=== PATIENT | female | born 1945 | race Caucasian/White ===

== ENCOUNTER → 2017-12-08 10:14 | Outpatient (CLI) | payer MEDICARE, OTHER, SELFPAY ==
--- NOTE | 2017-12-08 10:17 | HPBI_ITS ---
MAMMOGRAPHY - BILATERAL SCREENING REASON FOR EXAM: Female, 72 years old. Routine annual screening examination. PERTINENT HISTORY: Non-contributory. TECHNIQUE: Digital bilateral breast angelica (3D mammographic acquisition) in the CC and MLO projections. 2-D mediolateral oblique (MLO) and craniocaudad (CC) views of both breasts were obtained. CAD: Full Field Digital Mammography with Computer Added Detection was performed. COMPARISON: Comparison is made with prior examination dated December 04, 2016 and November 28, 2015. FINDINGS: Breast Composition: There are scattered areas of fibroglandular density. There are no dominant masses or suspicious calcifications. No other significant abnormalities are identified. There has been no significant change since the prior study. HPBI/SCREENING MAMM (CAD), BILAT IMPRESSION: Stable bilateral screening mammogram. Yearly follow-up mammogram recommended. (A) ASSESSMENT CATEGORY: BIRADS Category 1: Negative. A letter regarding these results will be sent to the patient by the facility within 30 days. Approximately 10% of breast cancers are not detected by mammography. A normal mammogram should not delay biopsy of a clinically suspicious abnormality. [id number] Electronically Signed: Maurice Grullon MD at 13:19 EST Tel [phone], Service support ,
--- NOTE | 2017-12-08 10:22 | HPBD_ITS ---
STUDY: DUAL ENERGY X-RAY ABSORPTIOMETRY / DXA REASON FOR EXAM: Female, 72 years old. The patient is postmenopausal. Loss of height. TECHNIQUE: Bone Mineral Density (BMD) measurements of lumbar spine and bilateral hips were obtained. COMPARISON: Comparison is made with prior study dated November 28, 2015. FINDINGS: Lumbar Spine (L1-L4): g/cm2 (0.884) / T-score (-2.4) / Z-score (-0.6) Findings are suggestive of osteopenia with a moderate fracture risk. Left Femur Total: g/cm2 (0.777) / T-score (-1.8) / Z-score (-0.1) Left Femoral Neck: g/cm2 (0.807) / T-score (-1.7) / Z-score (0.2) Right Femur Total: g/cm2 (0.794) / T-score (-1.7) / Z-score (0.0) Right Femoral Neck: g/cm2 (0.800) / T-score (-1.7) / Z-score (0.2) The T-Scores on the most recent prior examination were: Lumbar Spine (L1-L4): There has been worsening of bone density since the previous examination. Left Femur Total: which represents a worsening of 4.8%. Right Femur Total: which represents a worsening of 1.1%. HPBD/Dexa Bone Density Study (HP) IMPRESSION: The patient is considered osteopenic as outlined below according to World Wilber Organization (WHO) criteria with a moderate fracture risk. There has been worsening of bone density since the previous examination. Reference Information: The T-score is the number of standard deviations above or below the standard which is normal for young adults at their peak bone mineral density. The World Health Organization (WHO) interprets the T-scores as follows: Above -1 Normal bone density Between -1 and -2.5 Osteopenia Equal to / or below -2.5 Osteoporosis As a practical clinical guideline, osteopenia may be graded as follows: Mild -1 through -1.5 Moderate -1.6 through -2.0 Severe -2.1 through -2.4 The Z-score is the number of standard deviations above or below age-matched controls. A Z-score of less than -1.5 would be considered abnormal. References: 1. NIH Osteoporosis and Related Bone Diseases http://www.osteo.org 2. International Society for Clinical Densitometry http://www.iscd.org 3. National Osteoporosis Foundation http://www.nof.org Electronically Signed: Maurice Grullon MD at 15:25 EST Tel [phone], Service support ,
== END ==
PROVIDERS: Family Provider Internal Medicine; PCP Internal Medicine; Visit Provider Internal Medicine
DX: Z12.31 Encounter for screening mammogram for malignant neoplasm of breast (principal); Z78.0 Asymptomatic menopausal state; M85.80 Other specified disorders of bone density and structure, unspecified site
CPT/HCPCS: 77063; 77067; 77080

== ENCOUNTER → 2018-04-22 17:46 | Outpatient (CLI) | payer MEDICARE, OTHER, SELFPAY ==
--- NOTE | 2018-04-22 18:08 | MRI_ITS ---
STUDY: MRI BRAIN WITH AND WITHOUT CONTRAST REASON FOR EXAM: Female, 73 years old. Left orbital mass TECHNIQUE: Standardized multiplanar fat and water weighted pulse sequences were obtained. 5 ml of Gadavist contrast material was administered intravenously for the contrast portion of the examination. COMPARISON: March 05, 2017 FINDINGS: Moderate atrophy and periventricular white matter ischemic changes without mass effect or restricted diffusion.. Chronic ischemic changes are noted within the oc Normal bilateral basal ganglia. Normal thalami. There is no extra-axial fluid accumulation. Normal flow voids within the major intracranial circulation suggesting patency by spin echo criteria. Normal venous enhancement. There is no enhancing intra-axial or extra-axial abnormality. Normal sella turcica, pituitary gland, infundibular stalk, optic chiasm and hypothalamus. Normal tectal plate and pineal gland. Normal midbrain, and medulla. Normal cerebellum. Normal basal cisterns. Normal bilateral temporal bones. Normal bilateral internal auditory canals. There are postsurgical changes of the right orbit. There is a small solid nodule in the left orbital apex measuring proximally 7.5 x 5.8 x 6.9 mm mm essentially unchanged in size since previous study. Minor mucosal thickening of the ethmoid air cells. Normal calvarium and skull base. Normal visualized soft tissue structures. Normal visualized upper cervical spine. No significant change since prior study MRI/Brain W/WO Contrast IMPRESSION: Moderate atrophy and periventricular white matter ischemic changes without evidence for acute infarct. Chronic ischemic changes within the oc Stable appearance to nodule in the left renal apex since previous exam Electronically Signed: Romeo Waggoner MD at 21:12 EDT , Service support ,
== END ==
PROVIDERS: Family Provider Internal Medicine; PCP Internal Medicine; Visit Provider Internal Medicine
DX: H05.89 Other disorders of orbit (principal)
CPT/HCPCS: 70553; A9585

== ENCOUNTER → 2019-01-03 15:23 | Outpatient (CLI) | payer MEDICARE, OTHER, SELFPAY ==
--- NOTE | 2019-01-03 15:28 | BI_ITS ---
MAMMOGRAPHY - BILATERAL SCREENING REASON FOR EXAM: Female, 73 years old. Routine annual screening examination. PERTINENT HISTORY: Non-contributory. TECHNIQUE: Digital bilateral breast angelica (3D mammographic acquisition) in the CC and MLO projections. 2-D mediolateral oblique (MLO) and craniocaudad (CC) views of both breasts were obtained. CAD: Full Field Digital Mammography with Computer Added Detection was performed. COMPARISON: Comparison is made with prior examination dated December 08, 2017 and December 04, 2016. FINDINGS: Breast Composition: There are scattered areas of fibroglandular density. There are no dominant masses or suspicious calcifications. No other significant abnormalities are identified. There has been no significant change since the prior study. BI/SCREENING MAMM (CAD), BILAT IMPRESSION: Stable bilateral screening mammogram. Yearly follow-up mammogram recommended. (A) ASSESSMENT CATEGORY: BIRADS Category 1: Negative. A letter regarding these results will be sent to the patient by the facility within 30 days. Approximately 10% of breast cancers are not detected by mammography. A normal mammogram should not delay biopsy of a clinically suspicious abnormality. [id number] Electronically Signed: Maurice Grullon, at 9:08 EDT , Service support ,
== END ==
PROVIDERS: Family Provider Internal Medicine; PCP Internal Medicine; Referring Provider Internal Medicine; Visit Provider Internal Medicine
DX: Z12.31 Encounter for screening mammogram for malignant neoplasm of breast (principal)
CPT/HCPCS: 77063; 77067

== ENCOUNTER → 2019-02-15 | Outpatient (CLI) | payer MEDICARE, OTHER, SELFPAY ==
--- NOTE | 2019-02-15 13:20 | RAD_ITS ---
STUDY: X-RAY - CERVICAL SPINE REASON FOR EXAM: Female, 73 years old. Neck pain TECHNIQUE: 5 view(s) of the cervical spine were obtained. COMPARISON: None FINDINGS: Prominent osteophytosis of the odontoid articulation with the anterior ring of C1. Odontoid and lateral masses intact and aligned. Cervical vertebral body height and alignment normal. Minimal disc narrowing at C5-C6 with mild uncovertebral joint hypertrophy. No apparent foraminal stenosis on oblique views. Mild multilevel facet arthropathy. Apical lungs clear, apical thoracic cage intact. Prevertebral soft tissues and airways normal. RAD/Cerv Spine 4 or 5 Views IMPRESSION: Mild cervical spondylosis. No acute fracture or traumatic subluxation. Electronically Signed: Jamal Ferraro MD at 14:10 EDT Tel , Service support ,
== END | disposition home or self-care (01) ==
LOC: HPRAD 13:18
PROVIDERS: Family Provider Internal Medicine; PCP Internal Medicine; Referring Provider Internal Medicine; Visit Provider Internal Medicine
DX: M54.2 Cervicalgia (principal); G89.29 Other chronic pain
CPT/HCPCS: 72050

== ENCOUNTER 2019-04-15 10:30 | Outpatient (RCR) | payer MEDICARE, OTHER, SELFPAY ==
--- NOTE | 2019-03-23 16:31 | HP.PTEVAL ---
Patient's Visit Information ALVIN CAROLINA is a 74 year old F referred to Physical Therapy by Melissa Yeung DO with a diagnosis of Neck pain. Date of Evaluation: 03/23/19 Physical Therapist: CORRINE Rob - Visit Plan Frequency: 2x /Week Duration: 3 Weeks Plan: 2X/ week for 3 weeks for 1-2 sessions of MT to the upper cervial, occiput region, levator region, scapular and postural exercises with HEP. May use other modalities as needed. - Subjective Findings: SHe reports that she has stiffness and discomfort and Dr wanted her to try PT and get an x-ray. She has had it for a long time and there are times that it is worse. If she does things to try and build up her arms or if she is pulling weeds it gets it. She had the x-ray and it showed...mild degeneration. She has no N&T and no pain in her arms. She sleeps with 1 normal size pillow. She feels that she has relatively full ROM. SHe feels that she needs to build up her arms. - Pain neck pain Pain Intensity (Out of 10): 0 - Objective Posture: Sit with upright posture. C-spine AROM: Rot B 100%, ext 75%, Flexion 100%, SB B 75%. UE AROM: Full AROM. UE MMT: Flexion B 4/5, abd B 4/5, IR/ER B 4/5. Bicep reflex: 2+/3 B. Palpation: tender along B Occiput region and levator scap region. Pt was using 10# weight at home to do bicep curls in small ROM and I feel she was using her neck extensors and mid trap region for stability to help with the exercise. Instructed pt in how to scapular retract and depression with exercises. - Goals Goal 1:: I HEP Goal Time Frame: 4-6 Weeks Goal 2:: Be able to complete a work out rountine without getting neck pain afterwards. Goal Time Frame: 4-6 Weeks Goal 3:: Decrease neck stiffness by 50% near the occiput and levator, mid trap region Goal Time Frame: 4-6 Weeks - Rehabilitation Potential Rehabilitation Potential: Good - Anticipated Interventions Patient/Client Instruction: Educate patient on: Condition For the Purpose of:: To decrease pain, To increase ROM, To improve muscle performance and motor function, To improve ability to perform ADL's, To increase tolerance to activity/condition/position, To improve performance and independence with ADL's, To improve health of tissue, To decrease soft tissue restriction, To increase flexibility/ROM Therapeutic Exercise to Include: Strength training, Postural training, Flexibilty training, Passive ROM, Active ROM, Scapular Strength/Stabilization For the Purpose of:: To decrease pain, To increase ROM, To improve nutrient delivery to tissue, To improve muscle performance and motor function, To improve ability to perform ADL's, To increase tolerance to activity/condition/position, To improve health of tissue, To decrease soft tissue restriction, To increase flexibility/ROM Manual Therapy Techniques to Include: Passive ROM, Soft tissue mobilization For the Purpose of:: To decrease pain, To improve health of tissue, To decrease soft tissue restriction, To increase flexibility/ROM Ultrasound (thermal/non thermal): Yes - if needed For the Purpose of:: To decrease pain, To increase ROM, To improve nutrient delivery to tissue Thank you for the opportunity to evaluate your patient. For Medicare and Medicare HMO plans, please review the plan of care and approve it. It will need to be FAXED BACK to us at [phone] for Medicare purposes. For Medicare only, by signing this I certify the plan of care. Please let me know if there are questions or concerns regarding this plan of care. Physician Signature: Date:
--- NOTE | 2019-04-15 11:07 | HP.PTDCSUM ---
HP - PT D/C Summary It has been my pleasure to treat ALVIN CAROLINA under orders from Melissa Yeung DO, for the diagnosis of Neck pain for a total of 7 visit(s). Discharge Date: 04/15/19 Please see the following information for a summary of their discharge status. - Subjective Subjective: She has no pain now. SHe has pain for where she points to the occiput at night ( not every night and probably depending on what she does that day) and she reports it doesn;t bother her unless it turns head and reports the pain is 6/10 - Pain neck pain Pain Intensity (Out of 10): 0 - Overall Improvement % Improvement: 90 - Objective Objective/Function: Pt sits with excellent posture. C-spine AROM: Rot B 100%, ext 75%, flexion 100%, SB B 75% - Goals Goal 1:: I HEP Goal Progress: Goal Met Goal 2:: Be able to complete a work out rountine without getting neck pain afterwards. Goal Progress: Goal Met Goal 3:: Decrease neck stiffness by 50% near the occiput and levator, mid trap region Goal Progress: Goal Met - Plan Plan: DC PT to HEP ( including chin tucks to stretch occiput area) and possible self pay massage monthy. And watch posture - D/C Information Discharge Comments: DC PT to HEP If there are questions or concerns regarding this patient's physical therapy, please feel free to call me at [phone]. Thank you for the referral of this patient. Sincerely, Ary Reardon, MPT
== END 2019-04-15 19:00 | disposition home or self-care (01) ==
LOC: PT 10:30
PROVIDERS: Family Provider Internal Medicine; PCP Internal Medicine; Visit Provider Internal Medicine
DX: M54.2 Cervicalgia (principal)
CPT/HCPCS: 97110; 97140; 97161; 97530

== ENCOUNTER → 2019-09-05 | Outpatient (CLI) | payer MEDICARE, OTHER, SELFPAY ==
--- NOTE | 2019-09-05 12:25 | MRI_ITS ---
STUDY: MRI BRAIN WITH AND WITHOUT CONTRAST REASON FOR EXAM: Female, 74 years old. Left eye lesion TECHNIQUE: Standardized multiplanar fat and water weighted pulse sequences were obtained. IV Dotarem 10 was administered for the contrast portion of the examination. COMPARISON: None. FINDINGS: Moderate atrophy and periventricular white matter ischemic changes without evidence for acute infarct. Chronic ischemic changes within the oc Normal bilateral basal ganglia. Normal thalami. There is no extra-axial fluid accumulation. Normal flow voids within the major intracranial circulation suggesting patency by spin echo criteria. Normal venous enhancement. There is no enhancing intra-axial or extra-axial abnormality. Normal sella turcica, pituitary gland, infundibular stalk, optic chiasm and hypothalamus. Normal tectal plate and pineal gland. Normal midbrain, and medulla. Normal cerebellum. Normal basal cisterns. Normal bilateral temporal bones. Normal bilateral internal auditory canals. Status post right optic lens implant. Small nonspecific bony lesion at the level of the left orbital apex measuring approximately 7.2 x 5.8 mm. Minor mucosal thickening of the left maxillary and ethmoid sinuses.. Normal calvarium and skull base. Normal visualized soft tissue structures. Normal visualized upper cervical spine. Findings are unchanged since prior exam MRI/Brain W/WO Contrast IMPRESSION: Moderate periventricular white matter ischemic changes without evidence for acute infarct. Chronic ischemic changes within the oc. Nonspecific bony lesion within the left orbital apex not significantly changed since prior exam Electronically Signed: Romeo Waggoner MD at 16:27 EST , Service support ,
== END | disposition home or self-care (01) ==
LOC: MRI 12:22
PROVIDERS: Family Provider Internal Medicine; PCP Internal Medicine; Referring Provider Internal Medicine; Visit Provider Internal Medicine
DX: R42 Dizziness and giddiness (principal)
CPT/HCPCS: 70553; A9575

== ENCOUNTER → 2020-01-05 | Outpatient (CLI) | payer MEDICARE, OTHER, SELFPAY ==
--- NOTE | 2020-01-05 14:31 | BI_ITS ---
MAMMOGRAPHY - BILATERAL SCREENING REASON FOR EXAM: Female, 74 years old. Routine annual screening examination. PERTINENT HISTORY: Non-contributory. TECHNIQUE: Digital bilateral breast consuelo (3D mammographic acquisition) in the CC and MLO projections. 2-D mediolateral oblique (MLO) and craniocaudad (CC) views of both breasts were obtained. CAD: Full Field Digital Mammography with Computer Added Detection was performed. COMPARISON: Comparison is made with prior examination of January 03, 2019 and December 08, 2017. FINDINGS: Breast Composition: There are scattered areas of fibroglandular density. There are no dominant masses or suspicious calcifications. No other significant abnormalities are identified. There has been no significant change since the prior study. BI/SCREEN MAMM (CAD) W/CONSUELO BILAT IMPRESSION: Stable bilateral screening mammogram. Yearly follow-up mammogram recommended. (A) ASSESSMENT CATEGORY: BIRADS Category 1: Negative. A letter regarding these results will be sent to the patient by the facility within 30 days. Approximately 10% of breast cancers are not detected by mammography. A normal mammogram should not delay biopsy of a clinically suspicious abnormality. [id number] Electronically Signed: Maurice Grullon, at 15:53 EDT , Service support ,
--- NOTE | 2020-01-05 14:34 | BD_ITS ---
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 COMPARISON: Comparison is made with prior study dated December 08, 2017. FINDINGS: Lumbar Spine (L1-L4): g/cm2 (0.910) / T-score (-2.1) / Z-score (-0.3) Findings are suggestive of osteopenia with a high fracture risk. Left Femur Total: g/cm2 (0.819) / T-score (-1.5) / Z-score (0.3) Left Femoral Neck: g/cm2 (0.869) / T-score (-1.2) / Z-score (0.8) Right Femur Total: g/cm2 (0.795) / T-score (-1.7) / Z-score (0.1) Right Femoral Neck: g/cm2 (0.801) / T-score (-1.7) / Z-score (0.3) The T-Scores on the most recent prior examination were: Lumbar Spine (L1-L4): There has been improvement of bone density since the previous examination. Left Femur Total: which represents an improvement of 5.4%. Right Femur Total: which represents an improvement of 0.1%. BD/Dexa Bone Density Study IMPRESSION: The patient is considered osteopenic as outlined below according to World Wilber Organization (WHO) criteria with a high fracture risk. There has been improvement of bone density since the previous examination. Reference Information: The T-score is the number of standard deviations above or below the standard which is normal for young adults at their peak bone mineral density. The World Health Organization (WHO) interprets the T-scores as follows: Above -1 Normal bone density Between -1 and -2.5 Osteopenia Equal to / or below -2.5 Osteoporosis As a practical clinical guideline, osteopenia may be graded as follows: Mild -1 through -1.5 Moderate -1.6 through -2.0 Severe -2.1 through -2.4 The Z-score is the number of standard deviations above or below age-matched controls. A Z-score of less than -1.5 would be considered abnormal. References: 1. NIH Osteoporosis and Related Bone Diseases http://www.osteo.org 2. International Society for Clinical Densitometry http://www.iscd.org 3. National Osteoporosis Foundation http://www.nof.org Electronically Signed: Maurice Grullon, at 8:34 EDT , Service support ,
== END | disposition home or self-care (01) ==
LOC: OPBD 14:29
PROVIDERS: Family Provider Internal Medicine; PCP Internal Medicine; Referring Provider Internal Medicine; Visit Provider Internal Medicine
DX: Z78.0 Asymptomatic menopausal state (principal); Z12.31 Encounter for screening mammogram for malignant neoplasm of breast
CPT/HCPCS: 77063; 77067; 77080

== ENCOUNTER → 2021-01-17 12:49 | Outpatient (CLI) | payer MEDICARE, OTHER, SELFPAY ==
--- NOTE | 2021-01-17 12:53 | BI_ITS ---
MAMMOGRAPHY - BILATERAL SCREENING REASON FOR EXAM: Female, 75 years old. Routine annual screening examination. PERTINENT HISTORY: Non-contributory. TECHNIQUE: Digital bilateral breast consuelo (3D mammographic acquisition) in the CC and MLO projections. 2-D mediolateral oblique (MLO) and craniocaudad (CC) views of both breasts were obtained. CAD: Full Field Digital Mammography with Computer Added Detection was performed. COMPARISON: Comparison is made with prior examination dated 01/05/2020 and 01/03/2019. FINDINGS: Breast Composition: There are scattered areas of fibroglandular density. There are no dominant masses or suspicious calcifications. No other significant abnormalities are identified. There has been no significant change since the prior study. BI/SCRN MAMM (CAD)W/CONSUELO BILAT IMPRESSION: Stable bilateral screening mammogram. Yearly follow-up mammogram recommended. (A) ASSESSMENT CATEGORY: BIRADS Category 1: Negative. A letter regarding these results will be sent to the patient by the facility within 30 days. Approximately 10% of breast cancers are not detected by mammography. A normal mammogram should not delay biopsy of a clinically suspicious abnormality. [id number] Electronically Signed: Maurice Grullon MD at 13:42 EDT , Service support ,
== END ==
PROVIDERS: PCP Internal Medicine; Referring Provider Internal Medicine; Visit Provider Internal Medicine
DX: Z12.31 Encounter for screening mammogram for malignant neoplasm of breast (principal)
CPT/HCPCS: 77063; 77067

== ENCOUNTER → 2021-05-22 14:54 | Outpatient (CLI) | payer MEDICARE, OTHER, SELFPAY ==
--- NOTE | 2021-05-22 15:06 | MRI_ITS ---
STUDY: MRI BRAIN WITH AND WITHOUT CONTRAST REASON FOR EXAM: Female, 76 years old. ABN MRI, MEMORY LOSS,BALANCE; PREV MRI 09/05/19, 04/22/18 TECHNIQUE: Standardized multiplanar fat and water weighted pulse sequences were obtained. 11ML IV DOTAREM was administered for the contrast portion of the examination. COMPARISON: 09/05/2019. FINDINGS: Mild atrophy and moderate periventricular white matter ischemic changes without mass effect or restricted diffusion.. 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 Chronic ischemic changes within the oc bilaterally Normal bilateral basal ganglia. Normal thalami. There is no extra-axial fluid accumulation. Normal flow voids within the major intracranial circulation suggesting patency by spin echo criteria. Normal venous enhancement. There is no enhancing intra-axial or extra-axial abnormality. Normal sella turcica, pituitary gland, infundibular stalk, optic chiasm and hypothalamus. Normal tectal plate and pineal gland. Normal midbrain, and medulla. Normal cerebellum. Normal basal cisterns. Normal bilateral temporal bones. Normal bilateral internal auditory canals. Postsurgical changes of the right orbit.. Unchanged appearance of small bony lesion in the left orbital apex. Normal visualized paranasal sinuses. Normal calvarium and skull base. Normal visualized soft tissue structures. Normal visualized upper cervical spine. Little significant change since prior exam MRI/Brain W/WO Contrast IMPRESSION: Atrophy and moderate periventricular white matter ischemic changes without evidence for acute infarct. 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 Electronically Signed: Romeo Waggoner MD at 16:46 EDT , Service support ,
== END ==
PROVIDERS: PCP Internal Medicine; Referring Provider Internal Medicine; Visit Provider Internal Medicine
DX: R93.0 Abnormal findings on diagnostic imaging of skull and head, not elsewhere classified (principal)
CPT/HCPCS: 70553; A9575

== ENCOUNTER 2021-06-25 05:37 | Emergency (ER) | payer MEDICARE, OTHER, SELFPAY ==
[2021-06-25 05:38] VITALS: BP 224/92; PULSE 72; RESP 18; TEMP 36.4; O2SAT 100; BMI 20.5
[2021-06-25 05:41] VITALS: BP 219/86
--- NOTE | 2021-06-25 06:16 | RAD_ITS ---
STUDY: X-RAY CHEST REASON FOR EXAM: Female, 76 years old. hypertensive urgency TECHNIQUE: Single AP portable view of the chest. COMPARISON: None. FINDINGS: The lungs are clear and expanded. There is no demonstrated pleural abnormality. There is borderline cardiomegaly. Normal mediastinum and alla. Normal visualized pulmonary arteries. There is atherosclerotic tortuosity of the aortic arch and descending thoracic aorta. Normal visualized thoracic spine. Normal visualized ribs, clavicles, and shoulders. There is no demonstrated abnormality of the visualized soft tissue structures of the upper abdomen. RAD/Chest 1 View (Portable) IMPRESSION: No demonstrated acute cardiopulmonary process. Electronically Signed: Alona Alfaro MD at 7:35 EDT Tel , Service support ,
--- NOTE | 2021-06-25 06:16 | CT_ITS ---
STUDY: CT BRAIN WITHOUT CONTRAST REASON FOR EXAM: Female, 76 years old. Headache RADIATION DOSAGE (If Supplied By Facility): CTDIvol = ( 44.99 ) mGy, DLP = ( 728.62 ) mGycm TECHNIQUE: Transaxial CT imaging of the brain was performed without administration of intravenous contrast material. Individualized dose optimization techniques were used for this CT. COMPARISON: MRI brain May 22, 2021 FINDINGS: Normal soft tissue structures. Normal calvarium. There is mild cerebral atrophy with widening of the extra-axial spaces and ventricular dilatation. There is expected dilatation of the left anterior horn. There is focal low attenuation within the left basal ganglia stable since prior study. There is stable calcification in the right-sided basal ganglia. There are small punctate calcifications of the basal ganglia which are seen in the aging brain as a normal variant. Normal brainstem. There is mild cerebellar atrophy. There is no intracranial hemorrhage. There are no findings of an acute ischemic infarction. Normal visualized paranasal sinuses. CT/Brain/Head without Contrast IMPRESSION: Atrophy. Stable Prior ischemic change left-sided basal ganglia. No visualized acute hemorrhage infarct or edema. Electronically Signed: Alona Alfaro MD at 7:17 EDT Tel , Service support ,
[2021-06-25 06:17] VITALS: BP 210/82
--- NOTE | 2021-06-25 06:17 | EKG12_ITS ---
Test Reason : Blood Pressure : / mmHG Vent. Rate : 066 BPM Atrial Rate : 066 BPM P-R Int : 186 ms QRS Dur : 106 ms QT Int : 458 ms P-R-T Axes : 071 033 072 degrees QTc Int : 480 ms Normal sinus rhythm Normal ECG Confirmed by KELSEA GUILLEN, TITA ([id number]), senior editor MARIBELL ELLIS ([id number]) on 06/26/2021 9:54:47 AM Referred By: TATIANA Confirmed By:TITA ENAMORADO MD
[2021-06-25 06:40] LABS: Absolute Neutrophil Count 1.9 X10^3/uL (2.0-7.7); Basophil# 0.01 X10^3/uL; Basophil% 0.3 % (0-1); Eosinophil# 0.07 X10^3/uL; Eosinophils% 1.8 % (0-5); Hematocrit 35.6 % (37-47); Lymphocyte % 33.5 % (19-41); Mean Corp Hgb Conc 33.7 g/dL (32-36); Mean Corpuscular Hgb 32.5 pg (27.0-32.0); Mean Corpuscular Volume 96.5 fL (81-99); Monocyte# 0.59 X10^3/uL; Monocyte% 15.2 % (0-10); NRBC Flagged by Analyzer 0 % (0-5); Neutrophil # 1.91 X10^3/uL (2.7-7.7); Neutrophil % 49.2 % (47-70); Platelet Count 177 K/mm3 (150-450); RBC Distribution Width CV 11.5 % (11.6-14.6); RBC Distribution Width SD 40.8 fl (35.1-43.9); Red Blood Count 3.69 M/mm3 (4.2-5.4); White Blood Count 3.9 K/mm3 (4.4-11.0)
[2021-06-25 07:00] LABS: ALB/GLOB Ratio 1.1 RATIO (0.9-2.4); AST(SGOT) 20 U/L (15-37); Alanine Aminotransfer ALT/SGPT 21 U/L (13-56); Albumin, Serum 4.2 g/dL (3.2-5.0); Alkaline Phosphatase 59 U/L (45-117); Anion Gap 8 (5-15); BUN 10 mg/dL (7-18); BUN/Creat Ratio 12.6 RATIO (10-20); Chloride 97 mmol/L (98-107); Creatinine, Serum 0.79 mg/dL (0.55-1.02); EST Glomerular Filtration Rate 75 mL/min (>60); Est Glom Filt Rate - Afr Amer 90 mL/min (>60); Estimated Creatinine Clearance 39.84 ml/min; Globulin 3.7 g/dL (2.2-4.2); Glucose 86 mg/dL (74-106); Potassium 3.5 mmol/L (3.5-5.1); Protein, Total 7.9 g/dL (6.4-8.2); Sodium Level 129 mmol/L (136-145); Troponin-I HS 7 pg/mL (3.0-54.0)
[2021-06-25] MEDS: hydrALAZINE 20 MG/ML Vial 10 MG IV (07:03)
--- NOTE | 2021-06-25 07:21 | EX.ED.DYSGE1 ---
HPI History of Present Illness Chief Complaint: Headache Informant: patient and spouse/S.O. Narrative Narrative: 76-year-old female states that she is scheduled to have a colonoscopy this morning. She states that she got sick with the prep yesterday. This morning she was having an right occipital headache which she is states is a tension headache. States her blood pressure at home was normal for her. She states that she does not take any blood pressure medications. She denies any chest pain shortness of breath. She denies any arm leg symptoms. No vision changes. PFSH PFSH Home Medications alendronate 70 mg PO QWEEK 09/24/15 [History Last Taken Unknown] biotin 5,000 mcg PO DAILY 09/24/15 [History Last Taken Unknown] bupropion HCl 150 mg PO DAILY 09/24/15 [History Last Taken Unknown] calcium carbonate-vitamin D3 1 ea PO DAILY 09/24/15 [History Last Taken Unknown] clorazepate dipotassium [Tranxene T-Tab] 15 mg PO DAILY 09/24/15 [History Last Taken Unknown] escitalopram oxalate 10 mg PO DAILY 09/24/15 [History Last Taken Unknown] imipramine HCl [Tofranil] 100 mg PO QHS 09/24/15 [History Last Taken Unknown] levothyroxine 50 mcg PO DAILY 09/24/15 [History Last Taken Unknown] polyethylene glycol 3350 17 g PO DAILY PRN PRN 09/24/15 [History Last Taken Unknown] pravastatin 20 mg PO QHS 09/24/15 [History Last Taken Unknown] Allergy/AdvReac Type Severity Reaction Status Date / Time meperidine HCl [From Demerol] AdvReac Vomiting Verified 09/24/15 14:55 midazolam HCl [From Versed] AdvReac Vomiting Verified 09/24/15 14:55 Social History (Updated 06/25/21 @ 07:[address] Otto Jean, ) Smoking Status: Never smoker substance use type: does not use ROS ROS ED Constitutional Constitutional ED: Denies chills or weight loss Eyes Eyes: Denies change in vision or diplopia ENT ENT ED: Denies ear pain, rhinorrhea or sore throat Cardiovascular Cardiovascular: Denies chest pain, orthopnea, palpitations or racing heartbeat Respiratory/Chest Respiratory/Chest: Denies cough, dyspnea or orthopnea Gastrointestinal Gastrointestinal: Reports nausea and vomiting; Denies abdominal pain or diarrhea Genitourinary Genitourinary ED: Denies dysuria, hematuria or urinary frequency Musculoskeletal Musculoskeletal: Denies arthralgias or myalgias Integumentary Denies abscess or rash Neurologic Neurologic: Reports headache(s); Denies paresthesias or weakness Psychiatric Psychiatric: Denies anxiety, depression, suicidal ideation or suicidal thoughts Endocrine Endocrinology: Denies polydipsia, polyphagia or polyuria Allergic/Immunologic Allergic/Immunologic ED: Denies mouth swelling, tongue swelling or urticaria EXAM Physical Exam Const Vital Signs: 06/25/21 05:38 06/25/21 05:41 06/25/21 06:17 Temperature 97.6 F L Temperature Source Temporal Pulse Rate 72 Respiratory Rate 18 Blood Pressure 224/92 H 219/86 H 210/82 H Blood Pressure Mean 136 130 124 Pulse Ox 100 Oxygen Delivery Method Room Air 06/25/21 08:32 Temperature Temperature Source Pulse Rate 72 Respiratory Rate 14 Blood Pressure 169/67 H Blood Pressure Mean 101 Pulse Ox 98 Oxygen Delivery Method Room Air Positive well nourished and well developed General Appearance ED: well developed HEENT Reports normocephalic, head/scalp atraumatic and moist mucous membranes Eyes PERRL and EOMs intact bilaterally Neck no lymphadenopathy, supple and no JVD Resp normal respiratory effort and clear to auscultation bilaterally Cardio regular rate, regular rhythm and no murmurs GI normal to inspection, nondistended, normoactive bowel sounds and non-tender Palpation: soft Back/Spine no CVA tenderness and normal ROM Extremity normal to inspection General Extremety ED: Negative for edema General Extremity: Negative for edema Neuro oriented x3 and CN's II-XII intact bilaterally Sensorium / Orientation: alert Motor Exam: strength 5/5 throughout Psych mental status grossly normal Mood & Affect: Negative for depressed or tearful Skin no rashes or lesions noted and no wounds MDM MDM MDM Narrative Medical decision making narrative: Patient noted to be significantly hypertensive in both the right and the left arm as well as a manual reading. Basic blood work was obtained. Essentially stable for her. CT the brain negative. My interpretation of the chest x-ray is no acute process. The patient received a dose of hydralazine. Blood pressures down to 169/67. Patient states that she feels weak and continues to have headache. With the above negative work-up she also received Toradol and Tylenol. I do not think we need to aggressively lower her blood pressure any further. Would recommend her checking her blood pressure several more times today and over the next several days and reporting to her doctor. Lab Data Attestation: I reviewed the patient's lab results. Labs: Laboratory Results - last 24 hr 06/25/21 06/25/21 06/25/21 05:38 06:30 06:30 WBC 3.9 L RBC 3.69 L Hgb 12.0 Hct 35.6 L MCV 96.5 MCH 32.5 H MCHC 33.7 RDW Std Deviation 40.8 RDW Coeff of Joleen 11.5 L Plt Count 177 MPV 11.0 Immature Gran % (Auto) 0.000 Neut % (Auto) 49.2 Lymph % (Auto) 33.5 [place] % (Auto) 15.2 H Eos % (Auto) 1.8 Baso % (Auto) 0.3 Absolute Neuts (auto) 1.9 L Absolute Lymphs (auto) 1.30 Nucleated RBC % 0 Sodium 129 L Potassium 3.5 Chloride 97 L Carbon Dioxide 24.0 Anion Gap 8 BUN 10 Creatinine 0.79 Estim Creat Clear Calc 39.84 Est GFR (MDRD) Af Amer 90 Est GFR (MDRD) Non-Af 75 BUN/Creatinine Ratio 12.6 Glucose 86 Calcium 9.0 Total Bilirubin 0.50 AST 20 ALT 21 Alkaline Phosphatase 59 Troponin I High Sens 7 Total Protein 7.9 Albumin 4.2 Globulin 3.7 Albumin/Globulin Ratio 1.1 POC Glucose 78 Radiography Diagnostic Testing: Radiology Impression Brain CT 06/25/21 06:16 IMPRESSION: Atrophy. Stable Prior ischemic change left-sided basal ganglia. No visualized acute hemorrhage infarct or edema. Electronically Signed: Alona Alfaro MD at 7:17 EDT Tel , Service support , Chest X-Ray 06/25/21 06:16 IMPRESSION: No demonstrated acute cardiopulmonary process. Electronically Signed: Alona Alfaro MD at 7:35 EDT Tel , Service support , EKG Initial EKG: Attestation: I personally reviewed and interpreted this EKG as follows: Comments: Normal sinus rhythm ventricular rate of 66 bpm Discharge Plan Triage Chief Complaint: Headache ED Provider: Otto Jean Dx/Rx/DC Orders Clinical Impression: Hypertensive urgency, Headache Instructions: ED Headache Unspecified, ED High Blood Pressure Hypertension Prescriptions: No Action imipramine HCl [Tofranil] 50 MG tablet 100 mg PO QHS RF: 0 polyethylene glycol 3350 17 GM Packet 17 g PO DAILY PRN PRN (Reason: Constipation) RF: 0 alendronate 70 MG tablet 70 mg PO QWEEK RF: 0 levothyroxine 50 MCG tablet 50 mcg PO DAILY RF: 0 pravastatin 20 MG tablet 20 mg PO QHS RF: 0 clorazepate dipotassium [Tranxene T-Tab] 7.5 MG tablet 15 mg PO DAILY RF: 0 escitalopram oxalate 10 MG tablet 10 mg PO DAILY RF: 0 bupropion HCl 150 MG Tablet.Xl 150 mg PO DAILY RF: 0 biotin 2,500 MCG capsule 5,000 mcg PO DAILY RF: 0 calcium carbonate-vitamin D3 1 EACH tablet 1 ea PO DAILY RF: 0 Primary Care Provider: Melissa Yeung Referrals: Melissa Yeung DO [Primary Care Provider] - 3-5 Days Disposition Disposition: Home, Self Care
[2021-06-25 08:21] LABS: Bedside Glucose 78 mg/dL (70-110)
[2021-06-25 08:32] VITALS: BP 169/67; PULSE 72; RESP 14; O2SAT 98
[2021-06-25] MEDS: Ketorolac 15 MG/ML Vial IV (08:32)
[2021-06-25] MEDS: Acetaminophen 500 MG Tablet 1000 MG PO (08:32)
[2021-06-25 08:49] VITALS: BP 174/63; PULSE 74; RESP 12; O2SAT 100
== END 2021-06-25 09:02 | disposition home or self-care (01) ==
PROVIDERS: Emergency Provider Emergency Medicine; PCP Internal Medicine
DX: I16.0 Hypertensive urgency (principal); R51.9 Headache, unspecified; Z79.899 Other long term (current) drug therapy
CPT/HCPCS: 70450; 71045; 80053; 82962; 84484; 85025; 93005; 96374; 96375; 99285; A4216

== ENCOUNTER 2022-01-21 12:23 | Outpatient (CLI) | payer MEDICARE, OTHER, SELFPAY ==
--- NOTE | 2022-01-21 12:26 | BI_ITS ---
MAMMOGRAPHY - BILATERAL SCREENING REASON FOR EXAM: Female, 76 years old. Routine annual screening examination. PERTINENT HISTORY: Non-contributory. TECHNIQUE: Digital bilateral breast consuelo (3D mammographic acquisition) in the CC and MLO projections. 2-D mediolateral oblique (MLO) and craniocaudad (CC) views of both breasts were obtained. CAD: Full Field Digital Mammography with Computer Added Detection was performed. COMPARISON: Comparison is made with prior study 01/17/2021 and 01/05/2020. FINDINGS: Breast Composition: There are scattered areas of fibroglandular density. There are no dominant masses or suspicious calcifications. No other significant abnormalities are identified. There has been no significant change since the prior study. BI/SCRN MAMM (CAD)W/CONSUELO BILAT IMPRESSION: Stable bilateral screening mammogram. Yearly follow-up mammogram recommended. (A) ASSESSMENT CATEGORY: BIRADS Category 1: Negative. A letter regarding these results will be sent to the patient by the facility within 30 days. Approximately 10% of breast cancers are not detected by mammography. A normal mammogram should not delay biopsy of a clinically suspicious abnormality. [id number] Electronically Signed: Maurice Gurllon MD at 13:51 EDT ,
--- NOTE | 2022-01-21 12:30 | BD_ITS ---
STUDY: DUAL ENERGY X-RAY ABSORPTIOMETRY / DXA REASON FOR EXAM: Female, 76 years old. [id number]. Patient is postmenopausal. TECHNIQUE: Bone Mineral Density (BMD) measurements of lumbar spine and bilateral hips were obtained. COMPARISON: Comparison is made with prior study 01/05/2020. FINDINGS: Lumbar Spine (L1-L4): g/cm2 (0.864) / T-score (-1.4) / Z-score (1.2) Findings are suggestive of osteopenia with a low fracture risk. Left Femur Total: g/cm2 (0.700) / T-score (-2.0) / Z-score (0.0) Left Femoral Neck: g/cm2 (0.619) / T-score (-2.1) / Z-score (0.2) Right Femur Total: g/cm2 (0.747) / T-score (-1.6) / Z-score (0.4) Right Femoral Neck: g/cm2 (0.675) / T-score (-1.6) / Z-score (0.7) The T-Scores on the most recent prior examination were: Lumbar Spine (L1-L4): There has been improvement of bone density since the previous examination. Left Femur Total: which represents a worsening of 7.7%. Right Femur Total: which represents an improvement of 1.6%. BD/Dexa Bone Density Study IMPRESSION: The patient is considered osteopenic as outlined below according to World Wilber Organization (WHO) criteria with a moderate fracture risk. There has been improvement of bone density since the previous examination. Reference Information: The T-score is the number of standard deviations above or below the standard which is normal for young adults at their peak bone mineral density. The World Health Organization (WHO) interprets the T-scores as follows: Above -1 Normal bone density Between -1 and -2.5 Osteopenia Equal to / or below -2.5 Osteoporosis As a practical clinical guideline, osteopenia may be graded as follows: Mild -1 through -1.5 Moderate -1.6 through -2.0 Severe -2.1 through -2.4 The Z-score is the number of standard deviations above or below age-matched controls. A Z-score of less than -1.5 would be considered abnormal. References: 1. NIH Osteoporosis and Related Bone Diseases www osteo.org 2. International Society for Clinical Densitometry www iscd.org 3. National Osteoporosis Foundation www nof.org Electronically Signed: Maurice Grullon MD at 10:48 EDT ,
== END 2022-01-21 23:59 | disposition home or self-care (01) ==
LOC: OPBD 12:23
PROVIDERS: PCP Internal Medicine; Referring Provider Internal Medicine; Visit Provider Internal Medicine
DX: Z12.31 Encounter for screening mammogram for malignant neoplasm of breast (principal); Z78.0 Asymptomatic menopausal state
CPT/HCPCS: 77063; 77067; 77080

== ENCOUNTER → 2022-07-17 | Outpatient (CLI) | payer MEDICARE, OTHER, SELFPAY ==
--- NOTE | 2022-07-17 13:35 | RAD_ITS ---
STUDY: X-RAY - LUMBAR SPINE REASON FOR EXAM: Female, 77 years old. PAIN -- M54.40 TECHNIQUE: 5 view(s) of the lumbar spine were obtained. COMPARISON: None FINDINGS: Normal lumbar lordosis. There is no substantial scoliosis. There is a normal alignment of the vertebrae. There is minimal spondylosis. There is minimal disc space narrowing. There is greater disc space narrowing at L5-S1 with accompanying facet arthropathy. There is mild narrowing of the left neural foramen at the level L4-L5 L5-S1. There is atherosclerotic calcification of the abdominal aorta without a demonstrated aneurysm. RAD/L/S Spine Min 4 Views IMPRESSION: Degenerative change. No visualized acute loss of height or alignment. Electronically Signed: Alona Alfaro MD at 1:49 EDT ,
== END | disposition home or self-care (01) ==
LOC: MTRAD 13:18
PROVIDERS: PCP Internal Medicine; Referring Provider Internal Medicine; Visit Provider Internal Medicine
DX: M54.50 Low back pain, unspecified (principal)
CPT/HCPCS: 72110

== ENCOUNTER 2022-08-29 11:00 | Outpatient (RCR) | payer MEDICARE, OTHER, SELFPAY ==
--- NOTE | 2022-07-28 14:51 | HP.PTEVAL_ITS ---
Patient's Visit Information ALVIN CAROLINA is a 77 year old F referred to Physical Therapy by Dr. Melissa Yeung DO with a diagnosis of BACK PAIN AND URGE INCONTINENCE. Date of Evaluation: 07/28/22 Physical Therapist: Dalia Montana PT, Cert MDT - Visit Plan Frequency: 2x /Week Duration: 4-6 Weeks Plan: POSTURE CORRECTION/STRENGTHENING, INSTRUCTION IN APPROPRIATE BODY MECHANICS AND ACTIVITY MODIFICATIONS. DLS STARTING WITH A NEUTRAL SPINE PROGRESSING ROM TOLERATED. RENU LE ROM, STRETCHING AND STRENGTHENING. HEP INSTRUCTION. URINARY RETENTION EDUCATION. INSTRUCTION IN BEHAVIOR MODIFCATIONS FOR URGE INCONTINENCE. TRAINING IN COORDINATION OF PELVIC FLOOR MUSCULATURE WITH CORE (TRANSVERSE ABDOMINUS) STRENGTHENING. TRAINING IN ABDOMINAL CAVITY PRESSURE MGMT WITH ADL'S TO DECREASE ANY URINARY LEAKING. - Subjective Work/Leisure: RETIRED. Present symptoms: LOW BACK PAIN - CENTRAL AND RIGHT. PATIENT DENIES RENU LE SX'S. PATIENT IS ALSO HERE FOR INCONTINENCE - DAILY LEAKING. WEARING #2 ONE PAD PER DAY. Present since: CHRONIC EPISODIC LOW BACK PAIN. THIS EPISODE STARTED ABOUT 7 WEEKS AGO. LOW BACK PAIN IS GETTING BETTER. BLADDER LEAKING HAS BEEN GOING ON FOR YEARS. Pain Scale: NO LOW BACK PAIN FOR A COUPLE WEEKS NOW. NO PELVIC PAIN. 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 Worse: IN GENERAL BENDING INCREASES LOW BACK PAIN. COUGHING AND SNEEZING INCREASES BLADDER LEAKAGE. Better: TYLONOL HELPS LOW BACK PAIN ALONG WITH REST FROM BENDING. PATIENT REPORTS IF SHE DRINKS LESS FLUIDS SHE HAS LESS LEAKAGE. Disturbed sleep: GETS UP ONCE PER NIGHT TO URINATE. Previous history/Previous treatment: NO BACK SURGERY. NO ALON'S. NO CHIROPRACTOR. LOW BACK PAIN HAS JUST BEEN SELF TREATED OVER THE YEARS. BLADDER SLING 2013 - TOOK CARE OF INCONTINENCE FOR YEARS. Gait: NORMAL. USUALLY WALKS ABOUT 2 TO 2.5 MILES A DAY, 5 DAYS A WEEK. Bowel Dysfunction: NO. Accidents: NO. Unexplained weight loss: NO. Imaging: RECENT LOW BACK X-RAYS SHOWING ARTHRITIS AND DDD. PMH/Recent major surgery: DEPRESSION AND AXIETY, HIGH CHOLESTEROL AND HYPOTHYROIDISM. OTHER - PATIENT REPORTS SHE HASN'T BEEN WALKING LIKE USUAL AND STOPPED DIGGING HER BURGOS SINCE THIS EPISODE OF BACK PAIN OCCURRED. SHE REPORTS HER MAIN CONCERN IS ADDRESSING BACK. SHE IS GOING OUT OF TOWN FOR 2 WEEKS AND WILL START PT UPON RETURN. - Objective Sitting/Standing Posture: INCREASED KYPHOSIS. DECREASED LORDOSIS. NO RELEVENT LATERAL SHIFT. Active Correction of posture: NE. Other Observations: INDEP GAIT AND TRANSFERS. Sensory deficit: RENU LE LIGHT TOUCH SENSATION IS GROSSLY INTACT AND SYMMETRICAL. ROM deficit: RENU HS AND GASTROC SOLEUS COMPLEX TIGHTNESS. RENU HIP IR/ER TIGHTNESS RIGHT > LEFT. Motor deficit: RENU LE'S GROSSLY 5/5 WITH MMT'ING EXCEPT HIPS 4/5. Dural Signs: NEGATIVE RENU LE'S. Lumbar mvmt loss: flex - NIL. ext - MOD. R SG - MOD. L SG - MIN. PATIENT DENIES PAIN WITH LUMBAR ROM TESTING ALL PLANES BUT THINKS SHE FEELS A LITTLE SOMETHING IN HER RIGHT LOW BACK WITH LEFT SG TESTING. Core strength: FAIR. Palpation: NO ACUTE TENDERNESS OF LUMBAR SPINE OR RENU PARASPINALS. OTHER: PATIENT DECLINED/REFUSED MANUAL INTERNAL PELVIC FLOOR EXAM. TREATMENT: NEUROMUSCULAR REEDUCATION - RETRAINING OF MVMT AND POSTURE FOR SITTING, LYING AND STANDING ACTIVITIES. - Balance/Special Test Scores Oswestry Low Back Score: 8 - Goals Goal 1:: PATIENT WILL RESUME PRIOR LEVEL OF ACTIVITY WITHOUT LBP. Goal Time Frame: 2-4 Weeks Goal 2:: PATIENT WILL REPORT DECREASE EPISODES AND AMOUNTS OF URINE LEAKING. Goal Time Frame: 2-4 Weeks Goal 3:: PATIENT WILL BE INDEP WITH A HEP FOR CONTINUED IMPROVEMENT ONCE FORMAL PHYSICAL THERPAY CONCLUDES. Goal Time Frame: 2-4 Weeks - Anticipated Interventions Patient/Client Instruction: Educate patient on: Condition, Plan of Care, Risk Factors For the Purpose of:: To improve self management Therapeutic Exercise to Include: Strength training, Body mechanics, Postural training, Flexibilty training, Neuromotor development, Dynamic Lumbar Stabilization For the Purpose of:: To increase ROM, To improve muscle performance and motor function, To increase tolerance to activity/condition/position, To improve ability of physical actions for home/community/work/leisure Thank you for the opportunity to evaluate your patient. For Medicare and Medicare HMO plans, please review the plan of care and approve it. It will need to be FAXED BACK to us at [phone] for Medicare purposes. For Medicare only, by signing this I certify the plan of care. Please let me know if there are questions or concerns regarding this plan of care. Physician Signatu re: Date:
--- NOTE | 2023-01-21 13:00 | HP.PT.NRP ---
ALVIN STEVE DILLONHAIM was seen in my office for initial evaluation on 07/28/22. The following Plan of Care was established for this patient: Initial Frequency: 2x /Week Initial Duration: 4-6 Weeks Patient/Client Instruction: Educate patient on: Condition, Plan of Care, Risk Factors For the Purpose of:: To improve self management Therapeutic Exercise to Include: Strength training, Body mechanics, Postural training, Flexibilty training, Neuromotor development, Dynamic Lumbar Stabilization For the Purpose of:: To increase ROM, To improve muscle performance and motor function, To increase tolerance to activity/condition/position, To improve ability of physical actions for home/community/work/leisure This patient was last seen in our office 08/29/22. Pertinent comments regarding their Physical therapy will appear below: Patient appeared to be making progress with Physical Therapy before she stopped coming. She has not returned to Physical Therapy and is appropriate to return to MD for further follow-up as needed. At this point I will be discontinuing this patient from physical therapy. I would be happy to see this patient again in the future if found appropriate by the physician. Thank you! Dalia Montana, PT, Cert MDT Balance/Gait/Functional tests - Balance/Special Test Scores Oswestry Low Back Score: 8
== END 2022-08-29 19:00 | disposition home or self-care (01) ==
LOC: PT 11:00
PROVIDERS: PCP Internal Medicine; Referring Provider Internal Medicine; Visit Provider Internal Medicine
DX: M54.50 Low back pain, unspecified (principal); N39.41 Urge incontinence
CPT/HCPCS: 97112; 97162; 97530

== ENCOUNTER → 2023-01-22 | Outpatient (CLI) | payer MEDICARE, OTHER, SELFPAY ==
--- NOTE | 2023-01-22 11:00 | BI_ITS ---
MAMMOGRAPHY - BILATERAL SCREENING REASON FOR EXAM: Female, 77 years old. Routine annual screening examination. PERTINENT HISTORY: Non-contributory. TECHNIQUE: Digital bilateral breast consuelo (3D mammographic acquisition) in the CC and MLO projections. 2-D mediolateral oblique (MLO) and craniocaudad (CC) views of both breasts were obtained. CAD: Full Field Digital Mammography with Computer Added Detection was performed. COMPARISON: Comparison is made with prior examination January 21, 2022 and January 17, 2021. FINDINGS: Breast Composition: There are scattered areas of fibroglandular density. There are no dominant masses or suspicious calcifications. No other significant abnormalities are identified. There has been no significant change since the prior study. BI/SCRN MAMM (CAD)W/CONSUELO BILAT IMPRESSION: Stable bilateral screening mammogram. Yearly follow-up mammogram recommended. (A) ASSESSMENT CATEGORY: BIRADS Category 1: Negative. A letter regarding these results will be sent to the patient by the facility within 30 days. Approximately 10% of breast cancers are not detected by mammography. A normal mammogram should not delay biopsy of a clinically suspicious abnormality. [id number] Electronically Signed: Maurice Grullon MD at 12:20 EDT ,
== END | disposition home or self-care (01) ==
LOC: OPBI 10:52
PROVIDERS: PCP Internal Medicine; Visit Provider Internal Medicine
DX: Z12.31 Encounter for screening mammogram for malignant neoplasm of breast (principal)
CPT/HCPCS: 77063; 77067

== ENCOUNTER → 2023-04-09 | Outpatient (CLI) | payer MEDICARE, OTHER, SELFPAY ==
--- NOTE | 2023-04-09 15:21 | US_ITS ---
STUDY: ULTRASOUND OF THE FEMALE PELVIS - COMPLETE REASON FOR EXAM: Female, 78 years old. Abdominal bloating. Cramping for one month. LMP: Unknown. TECHNIQUE: Transabdominal and Transvaginal TECHNICAL QUALITY: Examination limited by bowel gas. COMPARISON: None. FINDINGS: The uterus is anteverted and is in a midline position. The uterus measures 4.3 x 3.8 x 2.5 cm. Normal uterine cervix. The endometrium measures 1.1 mm in thickness, and is heterogeneous (striated). There is no demonstrated endometrial mass. There is no demonstrated myometrial mass. There are however multiple calcifications within the myometrium. I.U.D. - The patient does not have an I.U.D. The right ovary is not visualized. There is no visualized right adnexal mass or complex lesion. The left ovary is not visualized.. There is no visualized left adnexal mass or complex lesion. There is no fluid in the cul-de-sac. The pre void volume of the bladder was 1:30 ml. The urinary bladder appears grossly normal. Polycystic ovary disease: No. US/Pelvic (Non ) IMPRESSION: 1. Small uterus with multiple myometrial calcifications. There is no endometrial abnormality. 2. Nonvisualization of the ovaries. There is no evidence of adnexal mass. Electronically Signed: Vineet Ponce DO at 21:57 EDT Reading Location ID and State: [facility] Tel [phone], Service support ,
--- NOTE | 2023-04-09 15:21 | US_ITS ---
STUDY: ULTRASOUND OF THE FEMALE PELVIS - COMPLETE REASON FOR EXAM: Female, 78 years old. Abdominal bloating. Cramping for one month. LMP: Unknown. TECHNIQUE: Transabdominal and Transvaginal TECHNICAL QUALITY: Examination limited by bowel gas. COMPARISON: None. FINDINGS: The uterus is anteverted and is in a midline position. The uterus measures 4.3 x 3.8 x 2.5 cm. Normal uterine cervix. The endometrium measures 1.1 mm in thickness, and is heterogeneous (striated). There is no demonstrated endometrial mass. There is no demonstrated myometrial mass. There are however multiple calcifications within the myometrium. I.U.D. - The patient does not have an I.U.D. The right ovary is not visualized. There is no visualized right adnexal mass or complex lesion. The left ovary is not visualized.. There is no visualized left adnexal mass or complex lesion. There is no fluid in the cul-de-sac. The pre void volume of the bladder was 1:30 ml. The urinary bladder appears grossly normal. Polycystic ovary disease: No. US/Transvaginal Non- IMPRESSION: 1. Small uterus with multiple myometrial calcifications. There is no endometrial abnormality. 2. Nonvisualization of the ovaries. There is no evidence of adnexal mass. Electronically Signed: Vineet Ponce DO at 21:57 EDT Reading Location ID and State: [id number] [facility] Tel [phone], Service support ,
== END | disposition home or self-care (01) ==
LOC: US 15:20
PROVIDERS: PCP Internal Medicine; Referring Provider Internal Medicine; Visit Provider Internal Medicine
DX: R14.0 Abdominal distension (gaseous) (principal)
CPT/HCPCS: 76830; 76856

== ENCOUNTER → 2023-05-13 | Outpatient (CLI) | payer MEDICARE, OTHER, SELFPAY ==
--- NOTE | 2023-05-13 08:07 | US_ITS ---
INDICATION: Female, 78 years old. Abdominal bloating. EXAMINATION: Ultrasound right upper quadrant TECHNIQUE: Ramirez scale and color doppler imaging was performed of the right upper quadrant. COMPARISON: None. FINDINGS: LIVER: Moderately coarsened echotexture. The liver size is 12.0 cm No focal hepatic lesion. Patent portal vein. GALLBLADDER AND BILIARY TREE: No shadowing gallstone or gallbladder wall thickening is demonstrated. The lateral wall thickness is 2.1 mm. There is trace free fluid medial to the gallbladder. The proximal common bile duct measures 5.6 mm, which is within normal limits for the patient''s age. Sonographic Rabago''s sign: Negative. PANCREAS: The tail of the pancreas is not well seen. No focal abnormality is demonstrated in the visualized pancreas. No pancreatic ductal dilatation. RIGHT KIDNEY: 9.22 x 4.95 x 4.84 cm. Cortical thickness is 1.65 cm. No hydronephrosis. US/Abdomen Limited IMPRESSION: 1. No stones or biliary dilatation. Negative sonographic Rabago''s sign. There is trace free fluid medial to the gallbladder, but no other sonographic sign of acute cholecystitis. 2. Moderately coarsened texture of the liver, which may reflect some cirrhotic change. No focal hepatic lesion seen. Electronically Signed: Carlos Ludwig MD at 10:12 EDT Reading Location ID and State: [id number] / Unknown , Service support ,
== END | disposition home or self-care (01) ==
LOC: US 08:05
PROVIDERS: PCP Internal Medicine; Referring Provider Internal Medicine; Visit Provider Internal Medicine
DX: R14.0 Abdominal distension (gaseous) (principal)
CPT/HCPCS: 76705

== ENCOUNTER → 2023-06-02 | Outpatient (CLI) | payer MEDICARE, OTHER, SELFPAY ==
--- NOTE | 2023-06-02 14:52 | CT_ITS ---
EXAM: CT Abdomen And Pelvis W/ Contrast Injection HISTORY: abdominal bloating and discomfort -- abdominal bloating and discomfort TECHNIQUE: Routine protocol CT abdomen pelvis. IV Contrast: Oral and amp; IV Readi-CAT and amp; 100mL Isovue-300 . Oral Contrast: with. Sagittal and coronal images were reconstructed. RADIATION DOSAGE (If Supplied By Facility): CTDIvol = ( 11.17 ) mGy, DLP = ( 265.08 ) mGycm Individualized dose optimization techniques were used for this CT. COMPARISON: None. LIMITATIONS: None. FINDINGS: LOWER CHEST: Unremarkable. LIVER: Unremarkable. GALLBLADDER/BILE DUCTS: Unremarkable. PANCREAS: Unremarkable. SPLEEN: Unremarkable. ADRENAL GLANDS: Unremarkable. KIDNEYS / URETERS: Tiny cyst in the right kidney. Otherwise unremarkable. BOWEL / MESENTERY: Colonic distention with large amount of stool from the cecum through the transverse and descending colon. Sigmoid colon is decreased caliber with a relative transition at the proximal sigmoid colon. The small bowel is not dilated. APPENDIX: Not identified. PERITONEUM: No free air. No free fluid. VESSELS: Abdominal aorta is normal caliber. RETROPERITONEUM: Unremarkable. REPRODUCTIVE ORGANS: Small calcified uterine fibroids. BLADDER: Unremarkable. ABDOMINAL WALL: Unremarkable. BONES: Degenerative changes in lower lumbar spine. OTHER: None. CT/Abdomen/Pelvis WITH Contrast IMPRESSION: 1. Colonic distention with large amount of colonic stool. Decreased caliber distally in the sigmoid colon may be functional/physiologic, or spasm, cannot entirely exclude a partially obstructing colonic mass lesion. Consider endoscopic correlation. 2. Fibroid uterus. Electronically Signed: Kati Doyle MD at 4:59 EDT ,
== END | disposition home or self-care (01) ==
LOC: CT 14:50
PROVIDERS: PCP Internal Medicine; Referring Provider Internal Medicine; Visit Provider Internal Medicine
DX: R14.0 Abdominal distension (gaseous) (principal)
CPT/HCPCS: 74177; Q9967; A4216

== ENCOUNTER 2023-07-10 17:29 | Inpatient (IN) | payer MEDICARE, OTHER, SELFPAY ==
--- NOTE | 2023-07-10 | FLU_PTH ---
PATIENT: ALVIN CAROLINA LOC: MS3 U#:[id number] AGE/SX: 78/F ROOM: [facility] [place] RE07/10/[address]: Dr. Doroteo Denney MD : 1945 BED: 1 DIS: 07/20/2023 SPEC #: [id number] RECD: 07/13/23 11:59 STATUS: [facility] #: [id number] PAUL: 07/10/23 00:[address]: Doroteo Denney DEPT: CYTOLOGY RECD BY: Felix Mancia ENTERED: 07/13/23 12:00 SP TYPE: Fluid OTHR DR: Dr. Melissa Yeung, DO Tissues: PARACENTESIS FLUID Procedures: Special Stain Group II Surgery Specimen Level IV Cytospin Fluid HEADER OPERATION: Paracentesis PRE-OP DIAGNOSIS: Ascites TISSUE SUBMITTED: Paracentesis fluid for cytology DIAGNOSIS CYTOLOGY Paracentesis fluid for cytology (cytospin and cell block): Malignant cells present derived from non-small cell carcinoma, favor adenocarcinoma. See comment. SJ:anna 07/14/2023 COMMENT Please also correlate with corresponding surgical specimen ([id number]), peritoneal biopsy and segment of sigmoid colon with diagnosis of metastatic poorly differentiated adenocarcinoma, favor ovarian primary. CYTOLOGY STUDY Slides are reviewed. CYTOLOGY GROSS Received is 1000 ml of yellow cloudy fluid labeled with the patient's name and and designated per the requisition as paracentesis. Submitted for cytology preparation including cell block. / anna 07/13/2023 TC:0 CPT: 06315, 52711
[2023-07-10 17:30] VITALS: BP 127/63; PULSE 90; RESP 16; TEMP 36.1; O2SAT 98; BMI 19.5
[2023-07-10 18:41] LABS: Absolute Lymphocyte Count 1.04 X10^3/uL (0.83-4.51); Absolute Neutrophil Count 3.5 X10^3/uL (2.0-7.7); Basophil# 0.01 X10^3/uL; Basophil% 0.2 % (0-1); Eosinophil# 0.02 X10^3/uL; Eosinophils% 0.4 % (0-5); Hematocrit 33.2 % (37-47); Hemoglobin 10.6 g/dL (12.0-15.0); Lymphocyte # 1.04 X10^3/ul (0.83-4.51); Lymphocyte % 19.8 % (19-41); Mean Corp Hgb Conc 31.9 g/dL (32-36); Mean Corpuscular Hgb 29.9 pg (27.0-32.0); Mean Corpuscular Volume 93.5 fL (81-99); Mean Platelet Vol. 9.9 fl (6.2-12.0); Monocyte# 0.64 X10^3/uL; Monocyte% 12.2 % (0-10); NRBC Flagged by Analyzer 0 % (0-5); Neutrophil # 3.52 X10^3/uL (2.7-7.7); Neutrophil % 66.8 % (47-70); Platelet Count 343 K/mm3 (150-450); RBC Distribution Width CV 11.9 % (11.6-14.6); RBC Distribution Width SD 41.4 fl (35.1-43.9); Red Blood Count 3.55 M/mm3 (4.2-5.4); White Blood Count 5.3 K/mm3 (4.4-11.0)
[2023-07-10 19:01] LABS: ALB/GLOB Ratio 0.7 RATIO (0.9-2.4); AST(SGOT) 29 U/L (15-37); Alanine Aminotransfer ALT/SGPT 25 U/L (13-56); Alkaline Phosphatase 87 U/L (45-117); Anion Gap 7 (5-15); BUN 14 mg/dL (7-18); BUN/Creat Ratio 10.9 RATIO (10-20); Calcium,Total 9.1 mg/dL (8.5-10.1); Chloride 93 mmol/L (98-107); Creatinine, Serum 1.28 mg/dL (0.55-1.02); EST Glomerular Filtration Rate 43 mL/min (>60); Est Glom Filt Rate - Afr Amer 52 mL/min (>60); Estimated Creatinine Clearance 28.62 ml/min; Globulin 4.4 g/dL (2.2-4.2); Glucose 113 mg/dL (74-106); Potassium 3.8 mmol/L (3.5-5.1); Protein, Total 7.4 g/dL (6.4-8.2); Sodium Level 127 mmol/L (136-145)
--- NOTE | 2023-07-10 19:52 | CT_ITS ---
EXAM: CT ABDOMEN AND PELVIS WITH INTRAVENOUS CONTRAST CLINICAL INDICATION: abdominal pain TECHNIQUE: Helically acquired images were obtained of the abdomen and pelvis with intravenous contrast. This CT exam was performed using one or more of the following dose reduction techniques: automated exposure control, adjustment of the mA and/or kV according to patient size, and/or use of iterative reconstruction technique. CONTRAST: IV 100mL Isovue-300 COMPARISON: 06/02/2023 FINDINGS: LOWER THORAX: Trace right pleural effusion and minimal right basilar airspace disease which may be atelectasis or pneumonia. Small hiatal hernia. No cardiomegaly. ABDOMEN: LIVER: No significant abnormality. Homogeneous. No focal mass. GALLBLADDER AND BILE DUCTS: No significant abnormality. No calcified gallstones. No gallbladder distention or wall edema. No intra- or extrahepatic biliary ductal dilation. PANCREAS: No significant abnormality. No focal cystic or solid mass. SPLEEN: No significant abnormality. Normal size without focal cystic or solid mass. ADRENALS: No significant abnormality. No nodules. KIDNEYS AND URETERS: No significant abnormality. Normal renal size and position. No hydronephrosis. STOMACH AND BOWEL: Moderate to large amount of colonic stool and gas. No stomach or bowel distention. No focal inflammatory change. PELVIS: APPENDIX: No evidence of acute appendicitis. BLADDER: No significant abnormality. REPRODUCTIVE: Uterine fibroids. ABDOMEN and PELVIS: INTRAPERITONEAL SPACE: There is new large volume ascites of uncertain etiology. Diffuse peritoneal enhancement. No free air. BONES/JOINTS: Degenerative changes in the spine. No suspicious lytic or blastic abnormality. SOFT TISSUES: No significant abnormality. No discrete abdominal or pelvic wall hernia. VASCULATURE: Atherosclerosis. Abdominal aorta is non-dilated. LYMPH NODES: No significant abnormality. No enlarged lymph nodes. CT/Abdomen/Pelvis W IV Cont ONLY IMPRESSION: 1. There is new large volume ascites of uncertain etiology. There is diffuse nonfocal peritoneal enhancement. Consider peritonitis. 2. Moderate to large amount of colonic stool and gas. 3. Trace right pleural effusion and minimal right basilar airspace disease which may be atelectasis or pneumonia. Electronically Signed: Jc Goldsmith DO at 20:11 EDT ,
--- NOTE | 2023-07-10 20:31 | EDS_ITS ---
HPI HPI - GI History of Present Illness Chief Complaint: Abd Pain Narrative Narrative: 78-year-old female presenting with abdominal distention. She states has had this for about a month. She initially had a CT scan which showed constipation. The CT scan did state that I could not entirely rule out partially obstructing colonic mass. The radiologist recommended follow-up with endoscopy. Patient followed up with her PCP who started her on Linzess about 2 weeks ago. She had a consult sent to Dr. Juarez which is on July 31. Patient was trying to get seen sooner due to increasing abdominal distention and has an appointment with Mony Jeter who is the SECURITY SYSTEM[employer] ENGINEER for Dr. Valencia. This is scheduled for Thursday. Patient went to see her PCP today and had a acute abdominal series which showed dilated bowel loops. She was sent to the ER for evaluation. Apparently the concern was for small bowel obstruction. Patient states she is passing flatus from time to time. She is having loose stools and small hard stools. No fevers or chills. PFSH PFSH Home Medications alendronate 70 mg tablet 70 mg PO QWEEK 09/24/15 [History Last Taken Unknown] biotin 2,500 mcg capsule 5,000 mcg PO DAILY 09/24/15 [History Last Taken Unknown] bupropion HCl 150 mg 24 hr tablet, extended release 150 mg PO DAILY 09/24/15 [History Last Taken Unknown] calcium carbonate 600 mg-vitamin D3 20 mcg (800 unit) tablet 1 ea PO DAILY 09/24/15 [History Last Taken Unknown] clorazepate dipotassium 7.5 mg tablet (Tranxene T-Tab) 15 mg PO DAILY 09/24/15 [History Last Taken Unknown] escitalopram oxalate 10 mg tablet 10 mg PO DAILY 09/24/15 [History Last Taken Unknown] imipramine HCl 50 mg tablet (Tofranil) 100 mg PO QHS 09/24/15 [History Last Taken Unknown] levothyroxine 50 mcg tablet 50 mcg PO DAILY 09/24/15 [History Last Taken Unknown] polyethylene glycol 3350 17 gram oral powder packet 17 g PO DAILY PRN PRN Constipation 09/24/15 [History Last Taken Unknown] pravastatin 20 mg tablet 20 mg PO QHS 09/24/15 [History Last Taken Unknown] Allergy/AdvReac Type Severity Reaction Status Date / Time meperidine HCl [From Demerol] AdvReac Vomiting Verified 07/10/23 17:30 midazolam HCl [From Versed] AdvReac Vomiting Verified 07/10/23 17:30 Social History Smoking Status: Never smoker substance use type: does not use ROS ROS ED Constitutional Constitutional ED: Denies chills, fever(s) or sweats Eyes Eyes: Denies blurry vision or change in vision ENT ENT ED: Denies ear pain or sore throat Cardiovascular Cardiovascular: Denies chest pain, palpitations or racing heartbeat Respiratory/Chest Respiratory/Chest: Denies cough, dyspnea or sputum Gastrointestinal Gastrointestinal: Reports abdominal pain, constipation and nausea; Denies diarrhea or vomiting Genitourinary Genitourinary ED: Denies dysuria, hematuria or urinary frequency Musculoskeletal Musculoskeletal: Denies arthralgias, myalgias or neck pain Integumentary Denies abscess, Abrasions or rash Neurologic Neurologic: Denies headache(s), paresthesias or weakness Psychiatric Psychiatric: Denies anxiety, depression, suicidal ideation or suicidal thoughts Endocrine Endocrinology: Denies polydipsia or polyuria EXAM Physical Exam Const Vital Signs: 07/10/23 17:30 07/10/23 21:00 Temperature 97.0 F L Temperature Source Temporal Pulse Rate 90 72 Respiratory Rate 16 Blood Pressure 127/63 H 145/70 H Blood Pressure Mean 84 93 Pulse Ox 98 100 Oxygen Delivery Method Room Air Room Air Positive well nourished General Appearance ED: NAD HEENT Reports moist mucous membranes normocephalic and atraumatic Eyes PERRL and EOMs intact bilaterally Neck no lymphadenopathy Resp normal respiratory effort Auscultation: Negative for rales or rhonchi Cardio regular rate and regular rhythm GI GI Narrative: Diminished distended. Decreased bowel sounds throughout. Back/Spine no CVA tenderness Extremity full ROM Neuro CN's II-XII intact bilaterally Psych mental status grossly normal MDM MDM MDM Narrative Medical decision making narrative: Patient presenting with constipation for a month. She is having some stools. Differential includes dehydration, electrolyte normalities, colitis, diverticuli tis, small bowel obstruction, large bowel obstruction, malignancy, constipation, fecal impaction was obtained to assess white blood cell count, hemoglobin, platelets. To assess liver function, renal function, electrolytes. Patient was given Zofran and IV fluids. CT of the abdomen pelvis IV contrast shows concern for volume of ascites with concern for peritonitis. There is also moderate to large amount in stool. The case with Dr. Moyer. He did come in side paracentesis. He states he received 2 and half liters. He sent this for testing. Patient will be admitted to his service. Likely colonoscopy tomorrow and if there is a blockage he will need to do a diverting colostomy. Patient admitted in stable condition. Impression: 1. Obstruction 2. Ascites 3. Constipation Lab Data Attestation: I reviewed the patient's lab results. Labs: Laboratory Results - last 24 hr 07/10/23 07/10/23 18:30 20:25 WBC 5.3 RBC 3.55 L Hgb 10.6 L Hct 33.2 L MCV 93.5 MCH 29.9 MCHC 31.9 L RDW Std Deviation 41.4 RDW Coeff of Joleen 11.9 Plt Count 343 MPV 9.9 Immature Gran % (Auto) 0.600 Neut % (Auto) 66.8 Lymph % (Auto) 19.8 [place] % (Auto) 12.2 H Eos % (Auto) 0.4 Baso % (Auto) 0.2 Absolute Neuts (auto) 3.5 Absolute Lymphs (auto) 1.04 Nucleated RBC % 0 Sodium 127 L Potassium 3.8 Chloride 93 L Carbon Dioxide 27.0 Anion Gap 7 BUN 14 Creatinine 1.28 H Estim Creat Clear Calc 28.62 Est GFR (MDRD) Af Amer 52 L Est GFR (MDRD) Non-Af 43 L BUN/Creatinine Ratio 10.9 Glucose 113 H Calcium 9.1 Total Bilirubin 0.10 L AST 29 ALT 25 Alkaline Phosphatase 87 Total Protein 7.4 Albumin 3.0 L Globulin 4.4 H Albumin/Globulin Ratio 0.7 L Urine Color Yellow Urine Clarity Clear Urine pH 6.5 Ur Specific [place] 1.010 Urine Protein 15 H Urine Glucose (UA) Normal Urine Ketones Negative Urine Occult Blood 10 H Urine Nitrite Negative Urine Bilirubin Negative Urine Urobilinogen Normal Ur Leukocyte Esterase 100 H Urine RBC 0 SEEN Urine WBC 5-10 SEEN Ur Squamous Epith Cells 0 SEEN Urine Bacteria RARE Urine Mucus 0 SEEN Radiography Diagnostic Testing: Clinical Impression(s) from Imaging Studies Abdomen/Pelvis CT 07/10/23 19:52 IMPRESSION: 1. There is new large volume ascites of uncertain etiology. There is diffuse nonfocal peritoneal enhancement. Consider peritonitis. 2. Moderate to large amount of colonic stool and gas. 3. Trace right pleural effusion and minimal right basilar airspace disease which may be atelectasis or pneumonia. Electronically Signed: Jc Goldsmith DO at 20:11 EDT , ADDENDUM: 07/10/232033 IMPRESSION: 1. There is new large volume ascites of uncertain etiology. There is diffuse nonfocal peritoneal enhancement. Consider peritonitis. 2. Moderate to large amount of colonic stool and gas. 3. Trace right pleural effusion and minimal right basilar airspace disease which may be atelectasis or pneumonia. N.B. : Solange Candelario RN, confirmed on 07/10/2023 20:28:05 (ET) that the healthcare facility has received the radiology report. Electronically Signed: Jc Goldsmith DO at 20:11 EDT , Discharge Plan Triage Chief Complaint: Abd Pain ED Provider: Sujit Love Dx/Rx/DC Orders Prescriptions: No Action imipramine HCl [Tofranil] 50 MG tablet 100 mg PO QHS polyethylene glycol 3350 17 GM powder in packet 17 g PO DAILY PRN PRN (Reason: Constipation) alendronate 70 MG tablet 70 mg PO QWEEK Patient Comments: ON FRIDAYS levothyroxine 50 MCG tablet 50 mcg PO DAILY Patient Comments: 100 MCG ON SUNDAYS pravastatin 20 MG tablet 20 mg PO QHS clorazepate dipotassium [Tranxene T-Tab] 7.5 MG tablet 15 mg PO DAILY escitalopram oxalate 10 MG tablet 10 mg PO DAILY bupropion HCl 150 MG tablet extended release 24 hr 150 mg PO DAILY biotin 2,500 MCG capsule 5,000 mcg PO DAILY calcium carbonate-vitamin D3 1 EACH tablet 1 ea PO DAILY Primary Care Provider: Melissa Yeung Referrals: Melissa Yeung DO [Primary Care Provider] -
[2023-07-10 20:52] LABS: Mucous, Urine 0 SEEN /hpf (<or=2+); Red Blood Cells-Urine 0 SEEN /hpf (0-5); Squamous Epithelial Cells - UA 0 SEEN /hpf (5-10)
[2023-07-10 20:55] LABS: Color, Urine Yellow (Yellow); Glucose, Dipstick Normal (Normal); Ketone-Dipstick Negative (Negative); Leukocyte Esterase-Dipstick 100 /ul (Negative); Nitrite-Dipstick Negative (Negative); Occult Blood-Urine 10 /ul (Negative); Protein-Dipstick 15 mg/dl (Negative); Urine Bilirubin Dipstick Negative (Negative); Urine Clarity Clear (Clear); Urine Urobilinogen Normal (Normal); Urine pH 6.5 (5.0 - 8.0)
[2023-07-10 21:00] VITALS: BP 145/70; PULSE 72; O2SAT 100
[2023-07-10 21:08] LABS: White Blood Cells 5-10 SEEN /hpf (0-5)
[2023-07-10 21:09] LABS: Bacteria RARE /hpf (None Seen)
[2023-07-10 21:24] VITALS: BP 160/67; PULSE 71; RESP 18; TEMP 36.7; O2SAT 98
[2023-07-10 21:24] LABS: Cytology, Body Fluid / CSF SEE PATHOLOGY REPORT
--- NOTE | 2023-07-10 21:34 | HP.PCM.SX_ITS ---
[facility] - General General Date of Service: 07/10/23 [facility] Narrative ALVIN CAROLINA, is a 78 F who presents with abdominal bloating. The patient says this all started around March. She says that in March she was having lower abdominal bloating. At that time she had ultrasound of her pelvis both transvaginal and abdominal that did not show any pathology. She continued to have more bloating and in April she had a ultrasound of her abdomen that did not show anything wrong with the gallbladder. There was suggestive of possible cirrhosis with nodular contour of the liver. Next in May the patient has CT scan that showed distention of the colon with solid stool and a narrowed area in the proximal sigmoid. Colonoscopy was recommended. Patient was having hard time getting into GI and has not had this done. She had a KUB today which showed distended colon so she was sent to the emergency room. Today she says that she has occasional mild discomfort in her abdomen. She denies any nausea or vomiting. She says she has been passing liquid stool and small stool balls. She is not passing gas. She says this has been going on for months like this. She says that she has become more bloated acutely over the last 2 weeks. She has been taking Linzess for possible constipation. She gets colonoscopies every 5 years due to family history of colon cancer in her mother and had her last colonoscopy [address] Juarez ON LICENSE OF [facility] Home Medications bupropion HCl 150 mg 24 hr tablet, extended release 150 mg PO DAILY 09/24/15 [History Last Taken Unknown] calcium carbonate 600 mg-vitamin D3 20 mcg (800 unit) tablet 1 ea PO DAILY 09/24/15 [History Last Taken Unknown] clorazepate dipotassium 7.5 mg tablet (Tranxene T-Tab) 15 mg PO DAILY PRN anxiety 09/24/15 [History Last Taken Unknown] escitalopram oxalate 10 mg tablet 20 mg PO DAILY 09/24/15 [History Last Taken Unknown] imipramine HCl 50 mg tablet (Tofranil) 100 mg PO QHS 09/24/15 [History Last Taken Unknown] levothyroxine 50 mcg tablet 50 mcg PO DAILY 09/24/15 [History Last Taken Unknown] polyethylene glycol 3350 17 gram oral powder packet 17 g PO DAILY PRN PRN Constipation 09/24/15 [History Last Taken Unknown] pravastatin 20 mg tablet 20 mg PO QHS 09/24/15 [History Last Taken Unknown] amlodipine 5 mg tablet 5 mg PO DAILY 07/10/23 [History Last Taken Unknown] aspirin 81 mg tablet,delayed release (Adult Low Dose Aspirin) 81 mg PO DAILY 07/10/23 [History Last Taken Unknown] cinnamon bark 500 mg capsule (Cinnamon) 500 mg PO DAILY 07/10/23 [History Last Taken Unknown] cyanocobalamin (vitamin B-12) 5,000 mcg sublingual tablet (Vitamin B-12) 5,000 mcg sublingual .COMPLEX 07/10/23 [History Last Taken Unknown] losartan 25 mg tablet 12.5 mg PO DAILY 07/10/23 [History Last Taken Unknown] Allergy/AdvReac Type Severity Reaction Status Date / Time meperidine HCl [From Demerol] AdvReac Vomiting Verified 07/10/23 17:30 midazolam HCl [From Versed] AdvReac Vomiting Verified 07/10/23 17:30 Social History Smoking Status: Never smoker substance use type: does not use ROS Constitutional Constitutional: Reports anorexia; Denies chills, fatigue or fever(s) Eyes Eyes: Denies blurry vision ENT HEENT: Denies abnormal hearing Cardiovascular Cardiovascular: Denies chest pain Respiratory/Chest Respiratory/Chest: Denies cough or dyspnea Gastrointestinal Gastrointestinal: Reports abdominal pain and constipation; Denies coffee ground emesis, diarrhea, dysphagia, nausea or vomiting Genitourinary Genitourinary: Denies change in urinary stream Musculoskeletal Musculoskeletal: Denies abnormal gait Integumentary Integumentary: Denies jaundice or new lesions Neurologic Neurologic: Denies abnormal gait Psychiatric Psychiatric: Reports depression; Denies anxiety Endocrine Endocrinology: Denies flushing Hematologic/Lymphatic Hematologic/Lymphatic: Denies easy bleeding Vital Signs Vital Signs Vital Signs: 07/10/23 17:30 07/10/23 21:00 Temperature 97.0 F L Temperature Source Temporal Pulse Rate 90 72 Respiratory Rate 16 Blood Pressure 127/63 H 145/70 H Blood Pressure Mean 84 93 Pulse Ox 98 100 Oxygen Delivery Method Room Air Room Air Weight Weight: 114 lb Body Mass Index (BMI) 19.5 Physical Exam Const oriented x3 Resp normal respiratory effort Cardio regular rate and regular rhythm GI soft to palpation and non-tender Inspection: abdominal distention Extremity normal to inspection Results Lab / Micro Data 07/10/23 18:30 07/10/23 18:30 Labs: Laboratory Results - last 24 hr 07/10/23 18:30: WBC 5.3, RBC 3.55 L, Hgb 10.6 L, Hct 33.2 L, MCV 93.5, MCH 29.9, MCHC 31.9 L, RDW Std Deviation 41.4, RDW Coeff of Joleen 11.9, Plt Count 343, MPV 9.9, Immature Gran % (Auto) 0.600, Neut % (Auto) 66.8, Lymph % (Auto) 19.8, [place] % (Auto) 12.2 H, Eos % (Auto) 0.4, Baso % (Auto) 0.2, Absolute Neuts (auto) 3.5, Absolute Lymphs (auto) 1.04, Nucleated RBC % 0, Sodium 127 L, Potassium 3.8, Chloride 93 L, Carbon Dioxide 27.0, Anion Gap 7, BUN 14, Creatinine 1.28 H, Estim Creat Clear Calc 28.62, Est GFR (MDRD) Af Amer 52 L, Est GFR (MDRD) Non-Af 43 L, BUN/Creatinine Ratio 10.9, Glucose 113 H, Calcium 9.1, Total Bilirubin 0.10 L, AST 29, ALT 25, Alkaline Phosphatase 87, Total Protein 7.4, Albumin 3.0 L, Globulin 4.4 H, Albumin/Globulin Ratio 0.7 L 07/10/23 20:25: Urine Color Yellow, Urine Clarity Clear, Urine pH 6.5, Ur Specific [place] 1.010, Urine Protein 15 H, Urine Glucose (UA) Normal, Urine Ketones Negative, Urine Occult Blood 10 H, Urine Nitrite Negative, Urine Bilirubin Negative, Urine Urobilinogen Normal, Ur Leukocyte Esterase 100 H, Urine RBC 0 SEEN, Urine WBC 5-10 SEEN, Ur Squamous Epith Cells 0 SEEN, Urine Bacteria RARE, Urine Mucus 0 SEEN Radiology Impression Abdomen/Pelvis CT 07/10/23 19:52 IMPRESSION: 1. There is new large volume ascites of uncertain etiology. There is diffuse nonfocal peritoneal enhancement. Consider peritonitis. 2. Moderate to large amount of colonic stool and gas. 3. Trace right pleural effusion and minimal right basilar airspace disease which may be atelectasis or pneumonia. Electronically Signed: Jc Goldsmith DO at 20:11 EDT , ADDENDUM: 07/10/232033 IMPRESSION: 1. There is new large volume ascites of uncertain etiology. There is diffuse nonfocal peritoneal enhancement. Consider peritonitis. 2. Moderate to large amount of colonic stool and gas. 3. Trace right pleural effusion and minimal right basilar airspace disease which may be atelectasis or pneumonia. N.B. : Solange Candelario RN, confirmed on 07/10/2023 20:28:05 (ET) that the healthcare facility has received the radiology report. Electronically Signed: Jc Goldsmith DO at 20:11 EDT , Assessment & Plan Assessment/Plan (1) Ascites: QUALIFIERS: Ascites type: other type Qualified Code(s): R18.8 - Other ascites (2) Colon obstruction: PLAN: Plan The patient has distended colon on CT scan. There is a same area of nondistention in the sigmoid colon and then the rectum is visible again. The patient reports that she has been passing stool. Patient also reports that over the last 2 weeks it is gotten worse and she has become more distended. She only describes mild pain. I reviewed her CT scan with her and her daughter. I discussed paracentesis with her. I discussed the risks of bleeding, infection, injury to underlying bowel. The patient had diffuse enhancement of the peritoneum on CT scan. After obtaining consent I performed a paracentesis and got 2.8 L of ascites that was straw-colored with no purulence. It is being sent for cytology and cell count and culture. The patient is not having any acute worsening of pain and her white count is normal. I do not believe she has any acute symptoms. She has no guarding on her abdomen and she is soft and nontender. After the parac entesis I was able to palpate her colon which still appears distended. I would like to perform a flexible sigmoidoscopy tomorrow. I discussed the increased risk of perforation if air is inflated and perforates the proximal colon. I also discussed with her that if I am unable to pass the scope I would perform a transverse colostomy to decompress the colon. I also did discuss further this may be a benign stricture versus mass. I also explained that there is a possibility if I am unable to see anything in the rectal vault due to stool I would likely have to perform laparoscopy to inspect the abdomen and possible colostomy at that point. I discussed surgery in detail with the patient and her daughter. They understand and all questions were answered. I discussed the risks of bleeding, infection, worsening condition overnight, need for colostomy, injury to bowel or bladder. I will admit her to the floor tonight and hydrate her. She is hyponatremic and I will recheck labs in the morning. I will plan for a fleets enema to clean the rectal vault. I will also plan IV fluids and n.p.o. Doroteo Denney MD Pager: [facility] [address] [place] [address], [address] [place] [address] Office:
[2023-07-10 21:38] LABS: Body Fluid Mononuclear WBC # 0.416 10^3/uL; Body Fluid Mononuclear WBC % 94.4 %; Body Fluid Polynuclear WBC # 0.025 10^3/uL; Body Fluid Polynuclear WBC % 5.6 %; Body Fluid Total Cells Counted 0.548 10^3/ul; White Blood Count/Body Fluid 0.441 10^3/uL
--- NOTE | 2023-07-10 21:41 | PCM.OPRPT ---
Report of Operation Date of Procedure: 07/10/23 Pre-Operative Diagnosis: Ascites Post-Operative Diagnosis: Ascites Surgery/Procedure Performed:: Ultrasound-guided paracentesis Type of Anesthesia: Local Description of Procedure: The left abdomen was prepped and draped. Ultrasound was used to locate the ascites. Under ultrasound guidance the skin and subcutaneous tissue were injected with local anesthetic. A small bibiana was made with a scalpel. The needle was placed through the abdominal wall under ultrasound guidance into the fluid pocket and the introducer was removed. The catheter was connected to the tubing and the tubing was placed into the bottle. Ascites was aspirated. 2800 cc of ascites was removed. Patient tolerated the procedure well and the catheter was removed and a bandage was placed. Vital signs were checked after the procedure and were stable. Abdomen was soft and nontender after the procedure.
[2023-07-10 22:19] LABS: Appearance/Body Fluid CLEAR; Auto B Fluid Analyzer BKGD Ct COUNTS W/IN LIMITS (W/IN LIMITS); Color/Body Fluid YELLOW; Source- Body Fluid OTHER
[2023-07-10 22:20] LABS: Red Cell Count/Body Fluid 174 /mm3
[2023-07-10 22:33] VITALS: BMI 18.3
[2023-07-10 22:33] LABS: Body Fluid QC Type(s) BF1Q; Lymphocytes 8 %; Monocytes 88 %; Neutrophil (Segs) 4 %
[2023-07-10 22:47] VITALS: BP 148/72; PULSE 71; RESP 17; TEMP 36.4; O2SAT 99
[2023-07-10] MEDS: 0.9% Normal Saline (1000mL) 1,000 ML 100 ML IV (23:39)
[2023-07-10] MEDS: 0.9% Saline Lock 10 ML Syringe IV (23:39)
[2023-07-10] MEDS: Fleet Enema 1 ML RC (23:40)
[2023-07-11] VITALS (9 sets, daily range): BP systolic 136–175; BP diastolic 60–73; PULSE 76–96; RESP 14–18; TEMP 36.4–37.2; O2SAT 96–100
--- NOTE | 2023-07-11 | COLBX_PTH ---
PATIENT: ALVIN CAROLINA LOC: MS3 U#:[id number] AGE/SX: 78/F ROOM: [facility] [place] RE07/10/[address]: Dr. Doroteo Denney MD : 1945 BED: 1 DIS: 07/20/2023 SPEC #: [id number] RECD: 07/13/23 07:11 STATUS: SUMMER ROJAS #: [id number] PAUL: 07/11/23 00:[address]: Doroteo Denney DEPT: SURGICAL PATHOLOGY RECD BY: Felix Mancia ENTERED: 07/13/23 12:08 SP TYPE: COLON BX OTHR DR: Dr. Melissa Yeung DO Tissues: A - Peritoneal cavity, NOS B - Sigmoid colon biopsy Procedures: Surgery Specimen Level IV Surgery Specimen Level V HEADER OPERATION: Flexible sigmoidoscopy PRE-OP DIAGNOSIS: Ascites, colon obstruction TISSUE SUBMITTED: A - Peritoneal biopsy, B - Segment of sigmoid colon MICROSCOPIC DIAGNOSIS A. Peritoneal biopsy: A few highly atypical cells present, consistent with involvement by metastatic adenocarcinoma. B. Segment of sigmoid colon, segmental resection: Metastatic poorly differentiated adenocarcinoma. See comment. SJ:anna 07/14/2023 COMMENT B. The tumor is present on the serosal surface of the colonic tissue. Immunohistochemistry ([id number]) supports the above diagnosis and favors ovarian primary. Clinical correlation and appropriate follow up are necessary. Please correlate with corresponding cytology [id number]. Case has been reviewed in consultation with Dr. Arizmendi who concurs with the above diagnosis. IDC:AM MICROSCOPIC DESCRIPTION Slides are reviewed. GROSS DESCRIPTION A - Received in fixative is one container labeled with the patient's name and designated peritoneal biopsy. The specimen consists of multiple irregular fragments of [place] soft tissue that in aggregate measure 0.6 x 0.6 x 0.1 cm. The specimen is totally submitted in one cassette. B - Received in fixative is one container labeled with the patient's name and designated segment of sigmoid colon. The specimen consists of a small segment of colonic tissue measuring 2.0 x 1.5 x 1.2 cm. The specimen is serially sectioned and submitted entirely in two cassettes. / ZAC:anna 07/13/2023 TC:0 CPT: 56393, 32068
--- NOTE | 2023-07-11 | IMM_PTH ---
PATIENT: ALVIN CAROLINA LOC: MS3 U#:[id number] AGE/SX: 78/F ROOM: [facility] [place] RE07/10/[address]: Dr. Doroteo Denney MD : 1945 BED: 1 DIS: 07/20/2023 SPEC #: [id number] RECD: 07/14/23 13:02 STATUS: SUMMER REQ #: [id number] PAUL: 07/11/23 00:[address]: Doroteo Denney DEPT: IMMUNOHISTOCHEMISTRY RECD BY: Nabila Pearl ENTERED: 07/14/23 13:14 SP TYPE: IMMUNO OTHR DR: Dr. Melissa Yeung DO Tissues: B - Sigmoid colon biopsy Procedures: RCC (add) MSH2 (add) MLH-1 (add) MSH6 (add) Anti-PMS2 (add) NAPSIN A (add) CA-125 (add) Timmy Ret (add) CEA (add) CK20 (add) CK5-6 (add) CK7 (add) CK8 (add) HEP PAR (add) HER2 SIMON (add) KI-67 (add) P53 (add) DE (add) TTF1 (add) Pankeratin (add) P40 (add) CDX2 (add) MOC-31 (add) ER (initial) PHYSICIAN & [place] [id number] SPECIMEN INFORMATION: Tissue Source: B - Segment of sigmoid colon Clinical Info: Ascites, colon obstruction Specimen Number: [id number] CPT code: 46424, 77869 x23 METHODOLOGY: Deparaffinized sections of prefer/formalin-fixed tissue or PAP/DQ stained slides are incubated with monoclonal/polyclonal antibodies/oligonucleotide probes. Localization is made via biotin free immunoperoxidase method. Appropriate controls are performed and reacted as expected. Results on target cell population are indicated in the following table: RESULTS: ANTIBODY / CLONE RESULT Block B2 ER (6F11) positive, weak, focal DE (1E2) positive, moderate Her-2neu (CB11) negative (1+) AE1-3 (AE1/AE3/PCK26) positive CK7 (OV-TL12/30) positive CK8 (91wrgnU68) positive CK20 (KS20.8) negative MOC-31 (4561) positive CDX2 (XMA6311A) negative TTF-1 (8G7G3/1) negative Napsin A (Rabbit Polyclonal) negative HepPar (OCh1E5) negative RCC (PN-15) negative CALRET (polyclonal) negative CK5-6 (D5 & 1684) negative P40 (BC28) negative CEA (11-7/TF-3HB-1) positive, rare cells CA125 (OC125) positive MLH-1 (M1) positive MSH2 (25D12) positive MSH6 (44) positive PMS2 (UHP8257) positive Ki-67 (30-9) positive, high, ~80% P53 (DO-7) positive, missense mutation pattern These tests were developed and their performance characteristics determined by [facility]. They may not have been cleared or approved by the U.S. Food and Drug Administration. The FDA has determined that such clearance or approval is not necessary. The above immunohistochemical/dualISH markers are ordered and reviewed by the Pathologist. INTERPRETATION: B. Segment of sigmoid colon, segmental resection: Metastatic poorly differentiated adenocarcinoma. Result of Microsatellite Instability Study: Negative (no loss of mismatch protein; no microsatellite instability detected). See comment. ZAC:anna 07/16/2023 Comment: IHC profile favors ovarian primary. Case has been reviewed in consultation with Dr. Arizmendi who concurs with the above diagnosis. IDC:[email or web address]
[2023-07-11 06:15] LABS: Absolute Lymphocyte Count 0.69 X10^3/uL (0.83-4.51); Absolute Neutrophil Count 3.4 X10^3/uL (2.0-7.7); Basophil# 0.01 X10^3/uL; Basophil% 0.2 % (0-1); Eosinophil# 0.02 X10^3/uL; Eosinophils% 0.4 % (0-5); Hematocrit 31.8 % (37-47); Hemoglobin 10.3 g/dL (12.0-15.0); Lymphocyte # 0.69 X10^3/ul (0.83-4.51); Lymphocyte % 14.4 % (19-41); Mean Corp Hgb Conc 32.4 g/dL (32-36); Mean Corpuscular Hgb 30.4 pg (27.0-32.0); Mean Corpuscular Volume 93.8 fL (81-99); Mean Platelet Vol. 10.1 fl (6.2-12.0); Monocyte# 0.62 X10^3/uL; Monocyte% 12.9 % (0-10); NRBC Flagged by Analyzer 0 % (0-5); Neutrophil # 3.41 X10^3/uL (2.7-7.7); Neutrophil % 71.3 % (47-70); Platelet Count 310 K/mm3 (150-450); RBC Distribution Width CV 11.9 % (11.6-14.6); RBC Distribution Width SD 41.1 fl (35.1-43.9); Red Blood Count 3.39 M/mm3 (4.2-5.4); White Blood Count 4.8 K/mm3 (4.4-11.0)
[2023-07-11 07:05] LABS: Anion Gap 6 (5-15); BUN 10 mg/dL (7-18); BUN/Creat Ratio 11.7 RATIO (10-20); Calcium,Total 8.2 mg/dL (8.5-10.1); Chloride 102 mmol/L (98-107); Creatinine, Serum 0.86 mg/dL (0.55-1.02); EST Glomerular Filtration Rate 68 mL/min (>60); Est Glom Filt Rate - Afr Amer 82 mL/min (>60); Estimated Creatinine Clearance 39.86 ml/min; Glucose 85 mg/dL (74-106); Potassium 3.9 mmol/L (3.5-5.1); Sodium Level 133 mmol/L (136-145)
[2023-07-11 07:22] LABS: Thyroid Stim Hormone (TSH) 5.97 uIU/mL (0.358-3.74)
[2023-07-11] MEDS: 0.9% Normal Saline (1000mL) 1,000 ML 100 ML IV ×2 (08:40→17:14)
--- NOTE | 2023-07-11 09:02 | PCM.PN.SRG ---
Subjective Subjective Patient had some liquid stool come out after the fleets enema. She is less bloated this morning after the paracentesis. She is comfortable. Objective Data Objective Data Vital Signs: Vital Signs Temp Pulse Resp BP Pulse Ox O2 Del Method 98.3 F 84 18 144/63 H 100 Room Air 07/11/23 05:18 07/11/23 05:18 07/11/23 05:18 07/11/23 05:18 07/11/23 05:18 07/11/23 05:18 Oxygen Delivery Method Room Air Weight: 106 lb 11.26 oz Body Mass Index (BMI) 18.3 Intake & Output: Intake and Output for Last 24 Hours 07/09/23 07/10/23 07/11/23 23:59 23:59 23:59 Intake Total 901.67 / 901.67 Balance 901.67 / 901.67 Lab / Micro Data 07/11/23 05:54 07/11/23 05:54 Labs: Laboratory Results - last 24 hr 07/10/23 18:30: WBC 5.3, RBC 3.55 L, Hgb 10.6 L, Hct 33.2 L, MCV 93.5, MCH 29.9, MCHC 31.9 L, RDW Std Deviation 41.4, RDW Coeff of Joleen 11.9, Plt Count 343, MPV 9.9, Immature Gran % (Auto) 0.600, Neut % (Auto) 66.8, Lymph % (Auto) 19.8, Fisher % (Auto) 12.2 H, Eos % (Auto) 0.4, Baso % (Auto) 0.2, Absolute Neuts (auto) 3.5, Absolute Lymphs (auto) 1.04, Nucleated RBC % 0, Sodium 127 L, Potassium 3.8, Chloride 93 L, Carbon Dioxide 27.0, Anion Gap 7, BUN 14, Creatinine 1.28 H, Estim Creat Clear Calc 28.62, Est GFR (MDRD) Af Amer 52 L, Est GFR (MDRD) Non-Af 43 L, BUN/Creatinine Ratio 10.9, Glucose 113 H, Calcium 9.1, Total Bilirubin 0.10 L, AST 29, ALT 25, Alkaline Phosphatase 87, Total Protein 7.4, Albumin 3.0 L, Globulin 4.4 H, Albumin/Globulin Ratio 0.7 L 07/10/23 20:25: Urine Color Yellow, Urine Clarity Clear, Urine pH 6.5, Ur Specific [place] 1.010, Urine Protein 15 H, Urine Glucose (UA) Normal, Urine Ketones Negative, Urine Occult Blood 10 H, Urine Nitrite Negative, Urine Bilirubin Negative, Urine Urobilinogen Normal, Ur Leukocyte Esterase 100 H, Urine RBC 0 SEEN, Urine WBC 5-10 SEEN, Ur Squamous Epith Cells 0 SEEN, Urine Bacteria RARE, Urine Mucus 0 SEEN 07/10/23 21:15: Fluid Source OTHER, Fluid Color YELLOW, Fluid Appearance CLEAR, Fluid WBC 0.441, Fluid RBC 174, Fluid Tot Cell Count 0.548 H, Fld Polynuclear WBCs # 0.025, Fld Polynuclear WBCs % 5.6, Fluid Mononuclear WBCs 0.416, Fld Mononuclear WBCs % 94.4, Fluid Neutrophils 4, Fluid Lymphocytes 8, Fluid Monocytes 88, Fl Pathologist Comment May follow, Fluid Comment 2 SEE COMMENT 07/11/23 05:54: WBC 4.8, RBC 3.39 L, Hgb 10.3 L, Hct 31.8 L, MCV 93.8, MCH 30.4, MCHC 32.4, RDW Std Deviation 41.1, RDW Coeff of Joleen 11.9, Plt Count 310, MPV 10.1, Immature Gran % (Auto) 0.800, Neut % (Auto) 71.3 H, Lymph % (Auto) 14.4 L, Fisher % (Auto) 12.9 H, Eos % (Auto) 0.4, Baso % (Auto) 0.2, Absolute Neuts (auto) 3.4, Absolute Lymphs (auto) 0.69 L, Nucleated RBC % 0, Sodium 133 L, Potassium 3.9, Chloride 102, Carbon Dioxide 25.0, Anion Gap 6, BUN 10, Creatinine 0.86, Estim Creat Clear Calc 39.86, Est GFR (MDRD) Af Amer 82, Est GFR (MDRD) Non-Af 68, BUN/Creatinine Ratio 11.7, Glucose 85, Calcium 8.2 L, TSH 5.97 H Radiography Diagnostic Testing: Radiology Impression Abdomen/Pelvis CT 07/10/23 19:52 IMPRESSION: 1. There is new large volume ascites of uncertain etiology. There is diffuse nonfocal peritoneal enhancement. Consider peritonitis. 2. Moderate to large amount of colonic stool and gas. 3. Trace right pleural effusion and minimal right basilar airspace disease which may be atelectasis or pneumonia. Electronically Signed: Jc Goldsmith DO at 20:11 EDT , ADDENDUM: 07/10/232033 IMPRESSION: 1. There is new large volume ascites of uncertain etiology. There is diffuse nonfocal peritoneal enhancement. Consider peritonitis. 2. Moderate to large amount of colonic stool and gas. 3. Trace right pleural effusion and minimal right basilar airspace disease which may be atelectasis or pneumonia. N.B. : Solange Candelario RN, confirmed on 07/10/2023 20:28:05 (ET) that the healthcare facility has received the radiology report. Electronically Signed: Jc Reveles AgusDO at 20:11 EDT , Physical Exam Const oriented x3 and no apparent distress Resp normal respiratory effort GI soft to palpation and non-tender Assessment & Plan Assessment/Plan (1) Ascites: QUALIFIERS: Ascites type: other type Qualified Code(s): R18.8 - Other ascites (2) Colon obstruction: PLAN: Plan I am still unsure as to the etiology of the ascites as it seems pretty sudden and her LFTs are normal. The ultrasound of the pelvis did not note any ovarian masses or adnexal masses to be ovarian cancer. I will check a CA 19-9 and CA125 in case. Plan to take the patient this afternoon for surgery. I plan to start with a flexible sigmoidoscopy to evaluate the area to see if this is benign or malignant obstruction. If there is obstruction I am unable to traverse the sigmoid colon I would convert to a laparoscopic procedure at that point and investigate the pelvis and likely perform a transverse loop colostomy for decompression of the colon. I may also place a Pleurx catheter into the abdomen for drainage of ascites and management of ascites postsurgical especially if a laparotomy or ileostomy is warranted. I discussed this in detail with the patient and the patient agrees to proceed. I discussed the risks including but not limited to bleeding, infection, perforation of the colon requiring total abdominal colectomy, need for colostomy, need for further bowel resection. Injury to underlying organs such as the bladder, ureter, small bowel. Patient understands the risks and is willing to proceed. Doroteo Denney MD Pager: [facility] [address] [place] [address] Office:
--- NOTE | 2023-07-11 11:35 | CASEMGMT ---
GAYLA ANDREW Assessment: Face to Face with pt for initial transition planning/care coordination assessment. GAYLA ANDREW introduced self and role at [facility], pt voices understanding and consents to assessment. Pt is A/O x4 and answers all questions appropriately at this time. Pt lying in bed with and dtr at bedside. Care providers, pharmacy, and demographics verified/updated. Admitting Dx: abd pain PCP:Gamal Specialists:BAO Juarez Pharmacy: [facility] [facility] [place]: yes LNOK: Jak Huffman, ; Rupa Murrayna, dtr Living Arrangements: Pt lives with in a single story home with 2 steps to enter with a rail. Pt reports she is I in ADL's and denies concerns at home. Transportation: Pt drives self and denies concerns with transportation. DME/HHC/SNF:Pt has a straight cane and 4 prong cane but does not use. Pt denies hx of HHC and SNF stays. Pt states no concerns with going home at time of dc. Dtr asks for name of surgery to be written down for her. Notified pt nurse. GAYLA ANDREW to follow post surgery pending findings and procedures. Pt states no further concerns/needs. Advised pt to ask CM if any further question/concerns/needs arise, voices understanding. Pt Goal: Home Plan: Home, follow for needs post surgery
--- NOTE | 2023-07-11 13:31 | NURSING ---
pt off floor for procedure
[2023-07-11] MEDS: Scopolamine 1mg/72hr Patch 1 PATCH TD (13:50)
[2023-07-11] MEDS: Cefotetan 2 GM in 0.9% Normal Saline (100mL MB+) 100 ML IV (14:33)
[2023-07-11] MEDS: Bupivacaine Mpf 0.5% 30 ML VIAL (15:57)
--- NOTE | 2023-07-11 17:04 | PCM.OPRPT ---
Report of Operation Date of Procedure: 07/11/23 Pre-Operative Diagnosis: Colon obstruction with ascites Post-Operative Diagnosis: Same Surgery/Procedure Performed:: 1. Flexible sigmoidoscopy 2. Placement of tunneled Pleurx abdominal catheter 3. Laparoscopic sigmoid loop colostomy Type of Anesthesia: General/Regional Specimen's removed: 1. Segment of sigmoid colon 2. Biopsy of peritoneum Drains: Pleurx to VAC suction Description of Procedure: Patient was brought back to the operating room and MAC anesthesia was induced. A well-lubricated colonoscope was placed into the rectum and advanced. There was no stool in the rectal vault. I was unable to pass the scope and I was unable to get around the corner to see if there was a mass. The scope was removed and the decision was made to proceed with diverting colostomy. Next the patient was moved to the operating room table and general anesthesia was induced and the patient was intubated. Winslow catheter was placed into the bladder. The abdomen was prepped and draped in usual sterile fashion. A small incision was made superior to the umbilicus and deep to the fascia. The fascia was elevated and incised. A 12 port was placed into the abdomen is insufflated 15 mmHg. The abdomen contain copious amounts of inflammatory material. The ascites was clear and did not appear purulent. There was no fecal material in the abdomen. A 5 mm port was placed under direct visualization in the right lateral abdominal sidewall and in the left rectus area. The ascites was suctioned and the patient was placed in steep Trendelenburg. The pelvis was inspected. I was unable to make it down to the area of transition due to the amount of colonic distention. The inflammation was throughout the abdomen and it included over the liver and near the gallbladder and near the spleen and throughout the small bowel. Unsure as to the etiology of the inflammation. I was able to check the left pelvis and find an odd appearing left fallopian tube. It appeared to be stuck to the lateral abdominal sidewall and I was unable to locate the left ovary. I was unable to locate the right ovary. There was some peritoneal inflammation and fibrinous material. Some of this was taken for biopsy. Next the sigmoid colon was selected proximal to the area of the fallopian tube. A small window was made in the mesentery and a [place] drain was placed through the window and used to retract the colon. Next the right 5 mm port was removed and the peel-away sheath for the Pleurx catheter was placed into the abdomen. Another small incision was made inferior to this and the catheter was tunneled from the lower incision to the upper incision and placed through the peel-away catheter and the peel-away catheter was removed. Laparoscopically the drain was placed into the pelvis. It was then sutured to the skin. The upper incision was then closed using 4-0 Monocryl suture. Next the air was allowed to desufflate from the abdomen and the Genoveva drain was pulled through the rectus 5 mm port. The skin was incised as was the anterior fascia in a cruciate fashion. The muscle was split and the posterior rectus sheath was divided. The Genoveva was brought through this and as well as the sigmoid colon. A bar was placed under the colostomy and sutured to the skin using 3-0 nylon suture. Next the ports were removed and the fascia of the superior midline incision was closed with 0 Vicryl suture. The skin was closed with interrupted 4-0 Monocryl sutures. Steri-Strips and bandages were applied. Next the colostomy was matured circumferentially using interrupted 3-0 Vicryl sutures. Copious stool and gas were suctioned from the proximal and distal colon. The abdomen return to normal size. The appliance was placed over the colostomy. The patient was awoken and taken to PACU in stable condition with a Winslow and the Pleurx catheter in place. Grafts/Implants Used: Pleurx catheter Admit VTE Documentation VTE Mechan Device Prophylaxis: SCD's
[2023-07-11] MEDS: 0.9% Saline Lock 10 ML Syringe IV (17:41)
[2023-07-11] MEDS: Morphine 2 MG/ML Syringe IV ×2 (17:41→19:59)
[2023-07-11] MEDS: Piperacil/Tazobactam 3.375 GM in 0.9% Normal Saline (50mL MB+) 50 ML IV (21:29)
[2023-07-11] MEDS: 0.9% Normal Saline (250mL Bag) 250 ML 15 ML IV (21:29)
[2023-07-12 01:36] VITALS: BP 137/62; PULSE 95; RESP 18; TEMP 36.6; O2SAT 94
[2023-07-12] MEDS: Morphine 2 MG/ML Syringe IV ×2 (01:47→21:36)
[2023-07-12] MEDS: 0.9% Normal Saline (1000mL) 1,000 ML 100 ML IV ×3 (01:52→21:36)
[2023-07-12 05:54] VITALS: BP 131/53; PULSE 92; RESP 16; TEMP 36.6; O2SAT 95
[2023-07-12 05:57] VITALS: BP 131/53; PULSE 92; RESP 16; TEMP 36.6; O2SAT 95
[2023-07-12] MEDS: Piperacil/Tazobactam 3.375 GM in 0.9% Normal Saline (50mL MB+) 50 ML IV ×3 (06:03→21:35)
[2023-07-12 07:15] LABS: Absolute Lymphocyte Count 0.43 X10^3/uL (0.83-4.51); Absolute Neutrophil Count 11.8 X10^3/uL (2.0-7.7); Basophil# 0.01 X10^3/uL; Basophil% 0.1 % (0-1); Hematocrit 34.8 % (37-47); Hemoglobin 11.1 g/dL (12.0-15.0); Lymphocyte # 0.43 X10^3/ul (0.83-4.51); Lymphocyte % 3.3 % (19-41); Mean Corp Hgb Conc 31.9 g/dL (32-36); Mean Corpuscular Hgb 30.6 pg (27.0-32.0); Mean Corpuscular Volume 95.9 fL (81-99); Mean Platelet Vol. 10.2 fl (6.2-12.0); Monocyte% 6.8 % (0-10); NRBC Flagged by Analyzer 0 % (0-5); Neutrophil # 11.82 X10^3/uL (2.7-7.7); Neutrophil % 89.5 % (47-70); POSITIVE DIFFERENTIAL YES; Platelet Count 327 K/mm3 (150-450); RBC Distribution Width CV 12.4 % (11.6-14.6); RBC Distribution Width SD 42.9 fl (35.1-43.9); Red Blood Count 3.63 M/mm3 (4.2-5.4); White Blood Count 13.2 K/mm3 (4.4-11.0)
[2023-07-12 07:19] LABS: Differential Indicated SCAN CRITERIA MET
[2023-07-12 07:45] LABS: Anion Gap 10 (5-15); BUN 9 mg/dL (7-18); BUN/Creat Ratio 10.2 RATIO (10-20); Calcium,Total 7.4 mg/dL (8.5-10.1); Chloride 107 mmol/L (98-107); Creatinine, Serum 0.88 mg/dL (0.55-1.02); EST Glomerular Filtration Rate 66 mL/min (>60); Est Glom Filt Rate - Afr Amer 79 mL/min (>60); Estimated Creatinine Clearance 38.96 ml/min; Glucose 101 mg/dL (74-106); Potassium 3.8 mmol/L (3.5-5.1); Sodium Level 137 mmol/L (136-145)
--- NOTE | 2023-07-12 09:20 | PCM.PN.SRG ---
Subjective Subjective Says she is feeling better and not feeling bloated or obstructed. Objective Data Objective Data Vital Signs: Vital Signs Temp Pulse Resp BP Pulse Ox O2 Del Method 97.8 F 92 16 131/53 H 95 Room Air 07/12/23 05:57 07/12/23 05:57 07/12/23 05:57 07/12/23 05:57 07/12/23 05:57 07/12/23 05:57 Oxygen Delivery Method Room Air Weight: 106 lb 11.26 oz Body Mass Index (BMI) 18.3 Intake & Output: Intake and Output for Last 24 Hours 07/10/23 07/11/23 07/12/23 23:59 23:59 23:59 Intake Total 1858.34 / 1858.34 913.33 / 913.33 Output Total 1045 / 1045 725 / 725 Balance 813.34 / 813.34 188.33 / 188.33 Lab / Micro Data 07/12/23 06:19 07/12/23 06:19 Labs: Laboratory Results - last 24 hr 07/12/23 06:19: WBC 13.2 H, RBC 3.63 L, Hgb 11.1 L, Hct 34.8 L, MCV 95.9, MCH 30.6, MCHC 31.9 L, RDW Std Deviation 42.9, RDW Coeff of Joleen 12.4, Plt Count 327, MPV 10.2, Immature Gran % (Auto) 0.300, Neut % (Auto) 89.5 H, Lymph % (Auto) 3.3 L, [place] % (Auto) 6.8, Eos % (Auto) 0.0, Baso % (Auto) 0.1, Absolute Neuts (auto) 11.8 H, Absolute Lymphs (auto) 0.43 L, Nucleated RBC % 0, Sodium 137, Potassium 3.8, Chloride 107, Carbon Dioxide 20.0 L, Anion Gap 10, BUN 9, Creatinine 0.88, Estim Creat Clear Calc 38.96, Est GFR (MDRD) Af Amer 79, Est GFR (MDRD) Non-Af 66, BUN/Creatinine Ratio 10.2, Glucose 101, Calcium 7.4 L Micro: Microbiology 07/10/23 21:15 Fluid - Paracentesis (Abd) Gram Stain - Final 07/10/23 21:15 Fluid - Paracentesis (Abd) Body Fluid Culture - Preliminary No growth-Final to follow Physical Exam Const oriented x3 and no apparent distress Resp normal respiratory effort GI soft to palpation Inspection: Negative for abdominal distention Assessment & Plan Assessment/Plan (1) Colon obstruction: PLAN: The patient had diverting loop colostomy yesterday. She also had placement of Pleurx catheter. The Pleurx catheter is draining blood-tinged ascites. The stoma appears a little bit dusky today. Continue to monitor. If it worsens she may need revision with end colostomy it was very stuck to the sidewall of the abdomen as well as the fallopian tube and was difficult to mobilize as a loop and there was a lot of bowel manipulation. Currently I will continue n.p.o. until she starts having bowel function. I will remove her Winslow. Continue Pleurx drainage. Doroteo Denney MD Pager: [facility] [address] [place] [address], [address] [place] [address] Office:
[2023-07-12 10:00] VITALS: BP 122/54; PULSE 90; RESP 16; TEMP 36.7; O2SAT 97
[2023-07-12 15:43] VITALS: BP 132/62; PULSE 78; RESP 15; TEMP 36.8; O2SAT 98
[2023-07-12 20:02] VITALS: BP 121/57; PULSE 99; RESP 18; TEMP 36.6; O2SAT 97
[2023-07-13] VITALS (11 sets, daily range): BP systolic 104–148; BP diastolic 55–85; PULSE 80–104; RESP 15–18; TEMP 36.6–37.2; O2SAT 92–100; BMI 18.3
--- NOTE | 2023-07-13 | IMM_PTH ---
PATIENT: ALVIN CAROLINA LOC: 3 U#:[id number] AGE/SX: 78/F ROOM: [facility] [place] RE07/10/[address]: Dr. Doroteo Denney MD : 1945 BED: 1 DIS: 07/20/2023 SPEC #: [id number] RECD: 07/16/23 13:55 STATUS: SUMMER REQ #: [id number] PAUL: 07/13/23 00:[address]: Doroteo Denney DEPT: IMMUNOHISTOCHEMISTRY RECD BY: Nabila Pearl ENTERED: 07/16/23 13:57 SP TYPE: IMMUNO OTHR DR: DO Dr. Zana Jackson MD Dr. Joseph Prah, MD Dr. Mansour Isckarus, MD Dr. Robert Field, MD Dr. Ryan Jin, MD Dr. Roger Macklis, MD Dr. Steve Walston, DO Lili Shah, DENTAL ASSISTANT-C Tissues: B - Sigmoid colon biopsy Procedures: CA-125 (add) CEA (add) CK8 (add) Pankeratin (initial) PHYSICIAN & [place] [address] SPECIMEN INFORMATION: Tissue Source: B - Segment of sigmoid colon Clinical Info: Necrosis of stoma Specimen Number: [id number] CPT code: 06382, 30531 x3 METHODOLOGY: Deparaffinized sections of prefer/formalin-fixed tissue or PAP/DQ stained slides are incubated with monoclonal/polyclonal antibodies/oligonucleotide probes. Localization is made via biotin free immunoperoxidase method. Appropriate controls are performed and reacted as expected. Results on target cell population are indicated in the following table: RESULTS: ANTIBODY / CLONE RESULT Block B5 CEA (11-7/TF-3HB-1) negative AE1-3 (AE1/AE3/PCK26) positive CA125 (OC125) positive CK8 (12srjaZ11) positive These tests were developed and their performance characteristics determined by [facility]. They may not have been cleared or approved by the U.S. Food and Drug Administration. The FDA has determined that such clearance or approval is not necessary. The above immunohistochemical/dualISH markers are ordered and reviewed by the Pathologist. INTERPRETATION: B. Segment of sigmoid colon: Metastatic carcinoma. See comment. AM:anna 07/17/2023 Comment: The IHC profile favors an ovarian primary.
--- NOTE | 2023-07-13 | COL_PTH ---
PATIENT: ALVIN CAROLINA LOC: MS3 U#:[id number] AGE/SX: 78/F ROOM: [facility] [place] RE07/10/[address]: Dr. Doroteo Denney MD : 1945 BED: 1 DIS: 07/20/2023 SPEC #: [id number] RECD: 07/13/23 16:34 STATUS: SUMMER ROJAS #: [id number] PAUL: 07/13/23 00:[address]: Doroteo Denney DEPT: SURGICAL PATHOLOGY RECD BY: Felix Mancia ENTERED: 07/14/23 08:14 SP TYPE: COLON OTHR DR: Dr. Melissa Yeung, Tissues: A - COLON BIOPSY B - COLON BIOPSY Procedures: Surgery Specimen Level IV Surgery Specimen Level HEADER OPERATION: Exploratory laparotomy, revision colostomy PRE-OP DIAGNOSIS: Necrosis of stoma TISSUE SUBMITTED: A - Mesenteric mass, B - Segment of sigmoid colon MICROSCOPIC DIAGNOSIS A. Mesenteric mass, biopsy: Metastatic carcinoma. See comment. B. Sigmoid colon, segmental resection: Metastatic carcinoma. Mucosal ulceration with granulation and hemorrhagic infarct. Acute and chronic serositis. One out of one lymph node with no pathologic change. See comment. AM:anna 07/17/2023 COMMENT A. The metastatic carcinoma is consistent with an ovarian primary. B. Immunohistochemistry ([id number]) supports the above diagnosis and favors an ovarian primary. Small foci ( 1.0-2.0mm in greatest dimension) of metastatic carcinoma are noted in the serosa and involving muscularis propria with accompanying inflammatory changes. These foci do not extend to the mucosa and the mucosal margins are free of neoplasia. Clinical correlation is suggested. Please make reference the patient's previous reports [id number] in which similar findings were identified. Case has been reviewed in consultation with Dr. Palencia who concurs with the above diagnosis. IDC:[email or web address] MICROSCOPIC DESCRIPTION Slides are reviewed. GROSS DESCRIPTION A - Received in fixative is one container labeled with the patient's name and designated mesenteric mass. The specimen consists of a piece of yellow-brown soft tissue measuring 0.9 x 0.5 x 0.2 cm. The specimen is bisected and submitted entirely in one cassette. B - Received in fixative is one container labeled with the patient's name and designated segment of sigmoid colon. The specimen consists of a segment of colon measuring 15.0 cm in length. The serosal surface shows hemorrhagic surfaces and also grayish-white exudate. Also present in the container is a second segment of colon measuring 3.0 cm in length and up to 6.0 cm in diameter. Also present in the container is a piece of bowel tissue measuring 4.5 x 2.0 x 0.5 cm. The mucosa is congested. No obvious mucosal mass is identified. The mucosa is congested and hemorrhagic in the larger segment of colon. Energy Infrastructure Engineer sections are submitted in nine cassettes as follows: 1-6 - larger segment of colon (1??stapled resection margin, 2 - opposite margin, 3-6 - bowel wall), 7 & 8 - second smaller segment of colon, 9 - smallest piece of colonic tissue. / ZAC:anna 07/14/2023 TC:0 CPT: 61515, 02171
[2023-07-13] MEDS: 0.9% Normal Saline (1000mL) 1,000 ML 100 ML IV ×3 (05:55→17:30)
[2023-07-13] MEDS: Piperacil/Tazobactam 3.375 GM in 0.9% Normal Saline (50mL MB+) 50 ML IV ×3 (05:55→21:22)
[2023-07-13 06:01] LABS: Absolute Lymphocyte Count 0.85 X10^3/uL (0.83-4.51); Absolute Neutrophil Count 11.7 X10^3/uL (2.0-7.7); Basophil# 0.01 X10^3/uL; Basophil% 0.1 % (0-1); Hematocrit 29.4 % (37-47); Hemoglobin 9.3 g/dL (12.0-15.0); Lymphocyte # 0.85 X10^3/ul (0.83-4.51); Mean Corp Hgb Conc 31.6 g/dL (32-36); Mean Corpuscular Hgb 30.5 pg (27.0-32.0); Mean Corpuscular Volume 96.4 fL (81-99); Mean Platelet Vol. 10.3 fl (6.2-12.0); NRBC Flagged by Analyzer 0 % (0-5); Neutrophil # 11.68 X10^3/uL (2.7-7.7); Neutrophil % 83.1 % (47-70); Platelet Count 310 K/mm3 (150-450); RBC Distribution Width CV 12.7 % (11.6-14.6); RBC Distribution Width SD 44.6 fl (35.1-43.9); Red Blood Count 3.05 M/mm3 (4.2-5.4); White Blood Count 14.1 K/mm3 (4.4-11.0)
[2023-07-13 07:09] LABS: Anion Gap 5 (5-15); BUN 16 mg/dL (7-18); BUN/Creat Ratio 20.1 RATIO (10-20); Calcium,Total 7.4 mg/dL (8.5-10.1); Chloride 115 mmol/L (98-107); EST Glomerular Filtration Rate 74 mL/min (>60); Est Glom Filt Rate - Afr Amer 89 mL/min (>60); Estimated Creatinine Clearance 42.85 ml/min; Glucose 122 mg/dL (74-106); Potassium 4.2 mmol/L (3.5-5.1); Sodium Level 142 mmol/L (136-145)
--- NOTE | 2023-07-13 08:14 | PN.SURG_ITS ---
Subjective Subjective Patient has complaints this morning and feels comfortable Objective Data Objective Data Vital Signs: Vital Signs Temp Pulse Resp BP Pulse Ox O2 Del Method 98.6 F 94 18 125/57 H 95 Room Air 07/13/23 02:07/13/23 02:31 07/13/23 02:07/13/23 02:31 07/13/23 02:07/13/23 02:37 Oxygen Delivery Method Room Air Weight: 106 lb 11.26 oz Body Mass Index (BMI) 18.3 Intake & Output: Intake and Output for Last 24 Hours 07/11/23 07/12/23 07/13/23 23:59 23:59 23:59 Intake Total 1858.34 / 1858.34 3236.66 / 3236.66 881.67 / 881.67 Output Total 1045 / 1045 1075 / 1075 250 / 250 Balance 813.34 / 813.34 2161.66 / 2161.66 631.67 / 631.67 Lab / Micro Data 07/13/23 05:25 07/13/23 05:25 Labs: Laboratory Results - last 24 hr 07/13/23 05:25: WBC 14.1 H, RBC 3.05 L, Hgb 9.3 L, Hct 29.4 L, MCV 96.4, MCH 30.5, MCHC 31.6 L, RDW Std Deviation 44.6 H, RDW Coeff of Joleen 12.7, Plt Count 310, MPV 10.3, Immature Gran % (Auto) 0.800, Neut % (Auto) 83.1 H, Lymph % (Auto) 6.0 L, [place] % (Auto) 10.0, Eos % (Auto) 0.0, Baso % (Auto) 0.1, Absolute Neuts (auto) 11.7 H, Absolute Lymphs (auto) 0.85, Nucleated RBC % 0, Sodium 142, Potassium 4.2, Chloride 115 H, Carbon Dioxide 22.0, Anion Gap 5, BUN 16, Creatinine 0.80, Estim Creat Clear Calc 42.85, Est GFR (MDRD) Af Amer 89, Est GFR (MDRD) Non-Af 74, BUN/Creatinine Ratio 20.1 H, Glucose 122 H, Calcium 7.4 L Micro: Microbiology 07/11/23 05:30 Urine, Clean Catch Urine Culture - Final Staphylococcus epidermidis 07/10/23 21:15 Fluid - Paracentesis (Abd) Gram Stain - Final 07/10/23 21:15 Fluid - Paracentesis (Abd) Body Fluid Culture - Preliminary No growth-Final to follow Physical Exam Const oriented x3 and no apparent distress Resp normal respiratory effort Cardio regular rate and regular rhythm GI soft to palpation Inspection: Negative for abdominal distention Assessment & Plan Assessment/Plan (1) Necrosis of stoma: PLAN: The patient's stoma appears to be getting ischemic. Likely due to tension. I recommend taking her back to surgery to revise the colostomy. I would likely have to revise it into an end colostomy to make less tension. I di scussed laparotomy with resection of the prior stoma and creation of a new end colostomy with the patient. I discussed the risks of bleeding, infection, injury to other organs. I will continue Zosyn throughout the day and take her surgery this afternoon. She remained NPO. Doroteo Denney MD Pager: [facility] [address] [place] [address], [address] [place] [address] Office:
--- NOTE | 2023-07-13 08:28 | WOUNDNOTE ---
Had been in this am to assess the stoma with Dr Denney and CHANCE Sykes. stoma remains slightly dusky in color and sits at skin level. stoma sarita in place. plan is for patient to return to OR today for revision of the stoma. appliance intact with small amount of serosanguineous drainage noted. will continue to follow.
--- NOTE | 2023-07-13 10:01 | CASEMGMT ---
Discharge Planning A list of HH providers including quality and resource use data and consistent with the patient?s preferred geographic region, medical needs, and insurance network was created in [employer] Guide. This list was provided to the RN CM. Dayami Maza, Discharge Planning Asst.
[2023-07-13] MEDS: buPROPion (XL) 150 MG TABLET.XL PO (10:22)
[2023-07-13] MEDS: Levothyroxine 50 MCG Tablet PO (10:22)
[2023-07-13] MEDS: amLODIPine 5 MG Tablet PO (10:23)
--- NOTE | 2023-07-13 10:40 | CASEMGMT ---
Social Work As per pt, she has LW/POA, Jak Huffman is her POA. Pt is not able to bring in the documents however. DERIAN Cerna
--- NOTE | 2023-07-13 10:49 | CASEMGMT ---
GAYLA ANDREW NOTE: Pt going back to surgery today. GAYLA CM to room. Pt sitting up in chair in room. in room visiting, sitting in W/C. Discussed discharge planning. Pt states it has been taking 2 people to get me up and she does not know what she will need at discharge. Discussed discharge options of SNF vs HHC. She did state she thinks she'll do better if she goes home, but also states she is not sure if she will be able to, as her is unable to assist her at home. Pt states I will know tomorrow. I'm not willing to commit to anything today. CM to f/u tomorrow re: discharge plan. PT/OT evals pending. Melinda COTTO RN, CM
[2023-07-13 12:08] LABS: Carbohydrate AG 19-9 4 U/mL (0-35)
[2023-07-13] MEDS: Bupivacaine 0.25% 30 ML Vial (15:25)
--- NOTE | 2023-07-13 15:57 | PCM.OPRPT ---
Report of Operation Date of Procedure: 07/13/23 Pre-Operative Diagnosis: Ischemia of the loop colostomy Post-Operative Diagnosis: 1. 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 A Winslow catheter was placed into the bladder. The abdomen was prepped and draped and the drain was draped off the side. Next midline incision was made and deepened to the fascia which was elevated and incised. A wound protector was placed. The prior stoma was incised circumferentially and reduced into the abdomen. The distal colon was stapled and divided using ONEIL stapler. The lateral attachments of the colon were divided. The colon was brought through the old stoma site. The necrotic area was removed and the stoma was matured and brooked. In the process of brooking and maturing the stoma the mucosa appeared to turn ischemic. The sutures were removed and the bowel was further resected. The stoma was then matured once more with circumferential interrupted 3-0 Vicryl sutures. The mucosa appeared viable. The abdomen was irrigated and suctioned dry. The abdomen was inspected and there was a firm area of assumed malignancy in the upper mesentery. There is also a firm nodular area in between 2 loops of the transverse colon. I was unable to reach the pelvis to inspect the ovaries. There was sealed off with inflammation. After the abdomen was suctioned dry and irrigated once more the drain was placed into the pelvis. The fascia was closed with running PDS suture from top and bottom meeting in the middle. The subcutaneous tissue was irrigated dry and the skin was stapled closed. Local anesthetic was injected. A stoma appliance was attached. The patient's drain was placed to Pleur-evac intermittent suction. Patient was taken to PACU in stable condition. Admit VTE Documentation VTE Mechan Device Prophylaxis: SCD's
[2023-07-14 01:07] VITALS: BP 129/66; PULSE 102; RESP 16; TEMP 36.7; O2SAT 99
[2023-07-14] MEDS: Morphine 2 MG/ML Syringe IV (02:01)
[2023-07-14] MEDS: 0.9% Normal Saline (1000mL) 1,000 ML 100 ML IV ×3 (03:41→23:40)
[2023-07-14 05:07] VITALS: BP 135/69; PULSE 99; RESP 18; TEMP 37; O2SAT 97
[2023-07-14] MEDS: Piperacil/Tazobactam 3.375 GM in 0.9% Normal Saline (50mL MB+) 50 ML IV ×3 (05:17→20:22)
[2023-07-14] MEDS: Morphine 4 MG/ML Syringe IV ×2 (05:17→20:19)
[2023-07-14 06:33] LABS: Absolute Lymphocyte Count 0.74 X10^3/uL (0.83-4.51); Absolute Neutrophil Count 11.1 X10^3/uL (2.0-7.7); Basophil# 0.02 X10^3/uL; Basophil% 0.2 % (0-1); Hematocrit 32.1 % (37-47); Hemoglobin 10.1 g/dL (12.0-15.0); Lymphocyte # 0.74 X10^3/ul (0.83-4.51); Lymphocyte % 5.7 % (19-41); Mean Corp Hgb Conc 31.5 g/dL (32-36); Mean Corpuscular Hgb 30.3 pg (27.0-32.0); Mean Corpuscular Volume 96.4 fL (81-99); Mean Platelet Vol. 10.1 fl (6.2-12.0); Monocyte# 1.07 X10^3/uL; Monocyte% 8.2 % (0-10); NRBC Flagged by Analyzer 0 % (0-5); Neutrophil # 11.07 X10^3/uL (2.7-7.7); Neutrophil % 85.1 % (47-70); Platelet Count 367 K/mm3 (150-450); RBC Distribution Width CV 13.2 % (11.6-14.6); RBC Distribution Width SD 46.8 fl (35.1-43.9); Red Blood Count 3.33 M/mm3 (4.2-5.4)
[2023-07-14 06:56] LABS: Anion Gap 7 (5-15); BUN 22 mg/dL (7-18); BUN/Creat Ratio 23.5 RATIO (10-20); Calcium,Total 7.4 mg/dL (8.5-10.1); Chloride 118 mmol/L (98-107); Creatinine, Serum 0.94 mg/dL (0.55-1.02); EST Glomerular Filtration Rate 61 mL/min (>60); Est Glom Filt Rate - Afr Amer 74 mL/min (>60); Estimated Creatinine Clearance 36.47 ml/min; Glucose 139 mg/dL (74-106); Potassium 4.4 mmol/L (3.5-5.1); Sodium Level 144 mmol/L (136-145)
[2023-07-14] MEDS: buPROPion (XL) 150 MG TABLET.XL PO (07:58)
[2023-07-14] MEDS: amLODIPine 5 MG Tablet PO (07:58)
[2023-07-14 08:29] VITALS: BP 139/69; PULSE 108; RESP 16; TEMP 36.9; O2SAT 96
--- NOTE | 2023-07-14 09:05 | PN.SURG_ITS ---
Subjective Subjective Patient reports that she is feeling comfortable Objective Data Objective Data Vital Signs: Vital Signs Temp Pulse Resp BP Pulse Ox O2 Del Method O2 Flow Rate 98.4 F 108 H 16 139/69 H 96 Room Air 2 07/14/23 08:29 07/14/23 08:29 07/14/23 08:07/14/23 08:07/14/23 08:29 07/14/23 08:07/14/23 01:07 Oxygen Flow Rate (L/min) 2 Oxygen Delivery Method Room Air Weight: 106 lb 11.26 oz Body Mass Index (BMI) 18.3 Intake & Output: Intake and Output for Last 24 Hours 07/12/23 07/13/23 07/14/23 23:59 23:59 23:59 Intake Total 3236.66 / 3236.66 2881.67 / 2881.67 1050 / 1050 Output Total 1075 / 1075 1122 / 1122 330 / 330 Balance 2161.66 / 2161.66 1759.67 / 1759.67 720 / 720 Lab / Micro Data 07/14/23 06:10 07/14/23 06:10 Labs: Laboratory Results - last 24 hr 07/11/23 09:52: CA 19-9 Antigen 4, CA 125 Antigen 286.0 H, CA 125 Ag Serial Mntr Not Reportable 07/14/23 06:10: WBC 13.0 H, RBC 3.33 L, Hgb 10.1 L, Hct 32.1 L, MCV 96.4, MCH 30.3, MCHC 31.5 L, RDW Std Deviation 46.8 H, RDW Coeff of Joleen 13.2, Plt Count 367, MPV 10.1, Immature Gran % (Auto) 0.800, Neut % (Auto) 85.1 H, Lymph % (Auto) 5.7 L, [place] % (Auto) 8.2, Eos % (Auto) 0.0, Baso % (Auto) 0.2, Absolute Neuts (auto) 11.1 H, Absolute Lymphs (auto) 0.74 L, Nucleated RBC % 0, Sodium 144, Potassium 4.4, Chloride 118 H, Carbon Dioxide 19.0 L, Anion Gap 7, BUN 22 H , Creatinine 0.94, Estim Creat Clear Calc 36.47, Est GFR (MDRD) Af Amer 74, Est GFR (MDRD) Non-Af 61, BUN/Creatinine Ratio 23.5 H, Glucose 139 H, Calcium 7.4 L Micro: Microbiology 07/10/23 21:15 Fluid - Paracentesis (Abd) Gram Stain - Final 07/10/23 21:15 Fluid - Paracentesis (Abd) Body Fluid Culture - Final Culture exhibits no growth. 07/10/23 21:15 Fluid - Paracentesis (Abd) Anaerobic Culture - Preliminary No growth in 48 hours. 07/11/23 05:30 Urine, Clean Catch Urine Culture - Final Staphylococcus epidermidis Physical Exam Const no apparent distress Resp normal respiratory effort Cardio regular rate and regular rhythm GI soft to palpation Assessment & Plan Assessment/Plan (1) UTI (urinary tract infection): (2) Necrosis of stoma: PLAN: Plan Patient was taken yesterday for revision of her stoma as the stomach was necrotic. Patient had conversion to an end colostomy. During surgery I found several masses in the mesentery and between loops of bowel. Patient likely has malignancy of the ovary causing bowel obstruction. Still awaiting pathology for official diagnosis. Continue antibiotics. Patient had UTI and she remains mildly confused. Continue antibiotics. Doroteo Denney MD Pager: [facility] [address] [place] [address], [address] [place] [address] Office:
--- NOTE | 2023-07-14 09:07 | WOUNDNOTE ---
Had been in this am to assess the stoma to the left abdomen with Dr Denney. stoma remains viable. appears to site just slightly above skin level. appliance intact. will monitor and begin teaching with patient and family.
[2023-07-14 11:22] VITALS: BP 131/57; PULSE 108; RESP 16; TEMP 36.5; O2SAT 96
[2023-07-14 15:08] VITALS: BP 138/69; PULSE 101; RESP 16; TEMP 36.4; O2SAT 98
[2023-07-14 15:13] LABS: Pathologist Comment/Body Fluid Reviewed
--- NOTE | 2023-07-14 15:23 | CASEMGMT ---
GAYLA ANDREW into pt room, pt dtr present. Discussed dc planning. Pt does not want to make any decisions right now. She states she was up in the [place] walking with her dtr today. Discussed options for homegoing. Pt dtr would like a list of [facility] providers. Provided this created by dc product development assistant. Pt and dtr to review. GAYLA ANDREW to check back tomorrow per their request.
[2023-07-14] MEDS: Losartan Potassium 25 MG Tablet 12.5 MG PO (20:21)
[2023-07-14] MEDS: Pravastatin 20 MG Tablet PO (20:21)
[2023-07-14] MEDS: Imipramine HCl 25 MG Tablet 100 MG PO (20:22)
[2023-07-14 22:30] VITALS: BP 136/65; PULSE 74; RESP 18; TEMP 36.6; O2SAT 98
[2023-07-15 03:15] VITALS: BP 126/63; PULSE 96; RESP 17; TEMP 36.6; O2SAT 98
[2023-07-15] MEDS: Piperacil/Tazobactam 3.375 GM in 0.9% Normal Saline (50mL MB+) 50 ML IV ×3 (05:11→20:31)
[2023-07-15] MEDS: Levothyroxine 50 MCG Tablet PO (05:11)
--- NOTE | 2023-07-15 08:02 | PCM.PN.SRG ---
Subjective Subjective Patient's Winslow is out. She says she is comfortable but she appears confused Objective Data Objective Data Vital Signs: Vital Signs Temp Pulse Resp BP Pulse Ox O2 Del Method O2 Flow Rate 97.8 F 96 17 126/63 H 98 Room Air 2 07/15/23 03:15 07/15/23 03:15 07/15/23 03:15 07/15/23 03:15 07/15/23 03:07/15/23 03:07/14/23 01:07 Oxygen Flow Rate (L/min) 2 Oxygen Delivery Method Room Air Weight: 106 lb 11.26 oz Body Mass Index (BMI) 18.3 Intake & Output: Intake and Output for Last 24 Hours 07/13/23 07/14/23 07/15/23 23:59 23:59 23:59 Intake Total 2881.67 / 2881.67 3196.67 / 3196.67 80 / 80 Output Total 1122 / 1122 825 / 825 150 / 150 Balance 1759.67 / 1759.67 2371.67 / 2371.67 -70 / -70 Lab / Micro Data 07/14/23 06:10 07/14/23 06:10 Labs: Laboratory Results - last 24 hr 07/10/23 21:15: Fl Pathologist Comment Reviewed Micro: Microbiology 07/10/23 21:15 Fluid - Paracentesis (Abd) Gram Stain - Final 07/10/23 21:15 Fluid - Paracentesis (Abd) Body Fluid Culture - Final Culture exhibits no growth. 07/10/23 21:15 Fluid - Paracentesis (Abd) Anaerobic Culture - Preliminary No growth in 48 hours. 07/11/23 05:30 Urine, Clean Catch Urine Culture - Final Staphylococcus epidermidis Physical Exam Const no apparent distress Resp normal respiratory effort GI soft to palpation and non-tender Assessment & Plan Assessment/Plan (1) Colon obstruction: PLAN: Patient is still mildly confused. She was alert and oriented but she was having delusions. She is on antibiotics. Awaiting bowel function is started diet. Stoma appears pink. The cell count from the ascites did show malignant cells but I am waiting for pathology results to confirm. Doroteo Denney MD Pager: [facility] [address] [place] [address], [address] [place] [phone] Office:
[2023-07-15 08:18] VITALS: BP 133/64; PULSE 91; RESP 16; TEMP 36.7; O2SAT 97
--- NOTE | 2023-07-15 08:31 | WOUNDNOTE ---
Removed the ostomy appliance from the left abdomen to better assess the stoma and peristomal skin. there was a small amount of serosanguineous drainage noted in the ostomy appliance. no stool or flatus noted. abdomen soft and non distended. stoma remains dark pink. sits at skin level. peristomal skin is intact. cleansed skin with warm water. pat dry. applied a new 2 piece flat [place] appliance with small amount of stoma paste. pt tolerated well. see wound photo.
--- NOTE | 2023-07-15 08:47 | WOUNDNOTE ---
wound/stoma photo: abdomen
[2023-07-15 09:21] LABS: Absolute Lymphocyte Count 0.59 X10^3/uL (0.83-4.51); Absolute Neutrophil Count 8.1 X10^3/uL (2.0-7.7); Basophil# 0.01 X10^3/uL; Basophil% 0.1 % (0-1); Hematocrit 26.4 % (37-47); Hemoglobin 8.4 g/dL (12.0-15.0); Lymphocyte # 0.59 X10^3/ul (0.83-4.51); Mean Corp Hgb Conc 31.8 g/dL (32-36); Mean Corpuscular Hgb 30.5 pg (27.0-32.0); Mean Platelet Vol. 9.7 fl (6.2-12.0); Monocyte# 1.03 X10^3/uL; Monocyte% 10.5 % (0-10); NRBC Flagged by Analyzer 0 % (0-5); Neutrophil # 8.12 X10^3/uL (2.7-7.7); Neutrophil % 82.9 % (47-70); POSITIVE DIFFERENTIAL YES; Platelet Count 333 K/mm3 (150-450); RBC Distribution Width CV 13.4 % (11.6-14.6); RBC Distribution Width SD 47.5 fl (35.1-43.9); Red Blood Count 2.75 M/mm3 (4.2-5.4); White Blood Count 9.8 K/mm3 (4.4-11.0)
[2023-07-15 09:23] LABS: Differential Indicated SCAN CRITERIA MET
[2023-07-15 09:45] LABS: Anion Gap 2 (5-15); BUN 22 mg/dL (7-18); Calcium,Total 8.2 mg/dL (8.5-10.1); Chloride 123 mmol/L (98-107); Creatinine, Serum 0.71 mg/dL (0.55-1.02); EST Glomerular Filtration Rate 84 mL/min (>60); Est Glom Filt Rate - Afr Amer 102 mL/min (>60); Estimated Creatinine Clearance 34.28 ml/min; Glucose 104 mg/dL (74-106); Sodium Level 148 mmol/L (136-145)
[2023-07-15] MEDS: 0.9% Normal Saline (1000mL) 1,000 ML 100 ML IV ×2 (09:59→20:00)
[2023-07-15] MEDS: buPROPion (XL) 150 MG TABLET.XL PO (10:01)
[2023-07-15] MEDS: amLODIPine 5 MG Tablet PO (10:01)
[2023-07-15 10:02] LABS: Differential Comment SCANNED
[2023-07-15] MEDS: Enoxaparin 40 MG/0.4 ML Syringe SC (10:14)
[2023-07-15 14:00] VITALS: BP 134/65; PULSE 94; RESP 16; TEMP 36.4; O2SAT 97
--- NOTE | 2023-07-15 15:35 | CASEMGMT ---
GAYLA ANDREW in to pt room, pt with multiple family members present. Pt dtr states that they have not had a chance to look at the [facility] list. She requests GAYLA ANDREW check back tomorrow.
[2023-07-15] MEDS: Acetaminophen 325 MG Tablet 650 MG PO (20:01)
[2023-07-15] MEDS: Imipramine HCl 25 MG Tablet 100 MG PO (20:02)
[2023-07-15] MEDS: Pravastatin 20 MG Tablet PO (20:02)
[2023-07-15] MEDS: Losartan Potassium 25 MG Tablet 12.5 MG PO (20:03)
[2023-07-15 20:37] VITALS: BP 151/72; PULSE 93; RESP 16; TEMP 36.6; O2SAT 98
[2023-07-16] MEDS: 0.9% Normal Saline (1000mL) 1,000 ML 100 ML IV (05:51)
[2023-07-16] MEDS: Piperacil/Tazobactam 3.375 GM in 0.9% Normal Saline (50mL MB+) 50 ML IV ×3 (05:51→21:19)
[2023-07-16] MEDS: Levothyroxine 50 MCG Tablet PO (05:51)
[2023-07-16] MEDS: Menthol/Lanolin/Calamine/Znox 113 GM Tube 1 APPLIC TOPICAL ×3 (05:52→21:24)
[2023-07-16 06:05] VITALS: BP 152/71; PULSE 89; RESP 16; TEMP 36.4; O2SAT 95
--- NOTE | 2023-07-16 07:39 | PCM.PN.SRG ---
Subjective Subjective Patient reports no issues overnight Objective Data Objective Data Vital Signs: Vital Signs Temp Pulse Resp BP Pulse Ox O2 Del Method O2 Flow Rate 97.6 F L 89 16 152/71 H 95 Room Air 2 07/16/23 06:05 07/16/23 06:05 07/16/23 06:05 07/16/23 06:05 07/16/23 06:05 07/16/23 06:05 07/14/23 01:07 Oxygen Flow Rate (L/min) 2 Oxygen Delivery Method Room Air Weight: 106 lb 11.26 oz Body Mass Index (BMI) 18.3 Intake & Output: Intake and Output for Last 24 Hours 07/14/23 07/15/23 07/16/23 23:59 23:59 23:59 Intake Total 3196.67 / 3196.67 2180 / 2180 1035 / 1035 Output Total 825 / 825 500 / 500 700 / 700 Balance 2371.67 / 2371.67 1680 / 1680 335 / 335 Lab / Micro Data 07/15/23 09:12 07/15/23 09:12 Labs: Laboratory Results - last 24 hr 07/10/23 21:15: Miscellaneous Cytology SEE PATHOLOGY REPORT 07/15/23 09:12: WBC 9.8, RBC 2.75 L, Hgb 8.4 L, Hct 26.4 L, MCV 96.0, MCH 30.5, MCHC 31.8 L, RDW Std Deviation 47.5 H, RDW Coeff of Joleen 13.4, Plt Count 333, MPV 9.7, Immature Gran % (Auto) 0.500, Neut % (Auto) 82.9 H, Lymph % (Auto) 6.0 L, [place] % (Auto) 10.5 H, Eos % (Auto) 0.0, Baso % (Auto) 0.1, Absolute Neuts (auto) 8.1 H, Absolute Lymphs (auto) 0.59 L, Nucleated RBC % 0, Differential Comment SCANNED, Sodium 148 H, Potassium 4.0, Chloride 123 H, Carbon Dioxide 23.0, Anion Gap 2 L, BUN 22 H, Creatinine 0.71, Estim Creat Clear Calc 34.28, Est GFR (MDRD) Af Amer 102, Est GFR (MDRD) Non-Af 84, BUN/Creatinine Ratio 31.0 H, Glucose 104, Calcium 8.2 L Micro: Microbiology 07/10/23 21:15 Fluid - Paracentesis (Abd) Gram Stain - Final 07/10/23 21:15 Fluid - Paracentesis (Abd) Body Fluid Culture - Final Culture exhibits no growth. 07/10/23 21:15 Fluid - Paracentesis (Abd) Anaerobic Culture - Preliminary No growth in 48 hours. 07/11/23 05:30 Urine, Clean Catch Urine Culture - Final Staphylococcus epidermidis Physical Exam Const oriented x3 and no apparent distress Resp normal respiratory effort GI soft to palpation and non-tender Assessment & Plan Assessment/Plan (1) Colon obstruction: (2) Disseminated ovarian cancer: PLAN: Plan The patient is not having any nausea or vomiting. I did discuss with her the diagnosis of metastatic ovarian cancer. There was a tumor deposit on the colon that was positive as well as positive cells in the fluid and a deposit on the peritoneum. I consulted oncology for their opinion, patient curious about options. I will try clear liquid diet today. Doroteo Denney MD Pager: [facility] [address] [place] [address] [address] [place] [address] Office:
[2023-07-16 08:00] VITALS: BP 151/76; PULSE 80; RESP 16; TEMP 36.6; O2SAT 94
[2023-07-16] MEDS: amLODIPine 5 MG Tablet PO (08:07)
[2023-07-16] MEDS: buPROPion (XL) 150 MG TABLET.XL PO (08:07)
[2023-07-16] MEDS: Enoxaparin 40 MG/0.4 ML Syringe SC (08:07)
[2023-07-16] MEDS: Acetaminophen 325 MG Tablet 650 MG PO ×2 (10:04→21:19)
[2023-07-16 15:00] VITALS: BP 137/66; PULSE 87; RESP 17; TEMP 36.6; O2SAT 99
--- NOTE | 2023-07-16 16:22 | VDLE_ITS ---
Reason For Study: BLE Swelling RIGHT LEFT GSV is normal. GSV is normal. CFV is compressible, spontaneous, phasic, CFV is compressible, spontaneous, phasic, competent and demonstrates normal competent, and demonstrates normal augmentation. augmentation. FV is compressible, spontaneous, phasic, FV is compressible, spontaneous, phasic, competent and demonstrates normal competent and demonstrates normal augmentation. augmentation. POP V is compressible, spontaneous, phasic, POP V is compressible, spontaneous, phasic, competent and demonstrates normal competent and demonstrates normal augmentation. augmentation. T/P Trunk is compressible. T/P Trunk is compressible. PTV is compressible. PTV is compressible. RT PerV is compressible. LT PerV is compressible. Pitting edema noted. Anechoic non vascularized area measuring Procedure approximately 0.86cm x 0.50cm noted within This is a venous duplex using B-mode, color the muscles of the groin/proximal thigh. flow and spectral Doppler. Pitting edema noted. Exam performed portable in patient room. The exam was diagnostic. A preliminary report was called and/or faxed to M/S 3 cross cut sawyer. VL/Venous Duplex US - Ricky Extrem Interpretation Summary Deep veins of the lower extremities are bilaterally patent and compressible seg mentally. There is no evidence of deep vein thrombosis on either side. Valvular competence appears in tact within the proximal deep venous systems bilaterally. The great saphenous veins appear bila terally patent and compressible segmentally. A non-vascular, hypoechoic area is noted within the m uscular portion of the left proximal thigh, measuring 0.86 cm x 0.50 cm. This may represent a joan sixto or seroma. Clinical correlation is advised. Ordering Physician: Doroteo Denney Referring Physician: Melissa Yeung D.O. Performed By: Ketan Guillermo RVTimur
--- NOTE | 2023-07-16 17:54 | CON.PCM.ON_ITS ---
Assessment & Plan Assessment/Plan (1) Disseminated ovarian cancer: Status: Acute Code(s): C56.9 - Malignant neoplasm of unspecified ovary Qualifiers: Laterality: unspecified laterality Qualified Code(s): C56.9 - Malignant neoplasm of unspecified ovary Plan: The patient will need to be reevaluated in approximately 1 month whether she can be a candidate for systemic chemotherapy to be followed by definitive debulking surgery. At this time she is recovering from palliative surgical procedures for bowel obstruction and malignant ascites. She has a poor performance status and debilitated. May consider short term rehab and palliative medicine consultation and reevaluation as outpatient in the cancer center in 1 month. Treatment is palliative plus or minus modest survival benefit. If the patient elects not to receive any active cancer therapy, understanding that her cancer is not curable, I think it would be appropriate for her to go on home hospice. This impression was discussed with the patient and her and multiple family members. (2) Peritoneal carcinomatosis: Status: Acute Code(s): C78.6 - Secondary malignant neoplasm of retroperitoneum and peritoneum (3) Malignant ascites: Status: Acute Code(s): R18.0 - Malignant ascites Plan: Status post Pleurx abdominal catheter (4) Colon obstruction: Status: Acute Code(s): K56.609 - Unspecified intestinal obstruction, unspecified as to partial versus complete obstruction Plan: Status post laparoscopic sigmoid loop colostomy July 11 then resection of loop colostomy and creation of end colostomy July 13, 2023 (5) Pleural effusion: Status: Acute Code(s): J90 - Pleural effusion, not elsewhere classified HPI Consult Data Date of Service:: 07/16/23 PCP / Referring Provider: Dr. Melissa Yeung DO Attending: Dr. Doroteo Denney MD Chief Complaint Chief Complaint: Abdominal distention History of Present Illness History of Present Illness: 78-year-old female who presented with increasing abdominal distention over the course of a few months until she presented to [place] emergency room with ascites and bowel obstruction. July 10, 2023 CT abdomen and pelvis: IMPRESSION: 1. There is new large volume ascites of uncertain etiology. There is diffuse nonfocal peritoneal enhancement. Consider peritonitis. 2. Moderate to large amount of colonic stool and gas 3. Trace right pleural effusion and minimal right basilar airspace disease which may be atelectasis or pneumonia. July 10, 2023: Ultrasound-guided paracentesis Paracentesis fluid for cytology (cytospin and cell block): Malignant cells present derived from non-small cell carcinoma, favor adenocarcinoma. See comment. COMMENT Please also correlate with corresponding surgical specimen ([id number]), peritoneal biopsy and segment of sigmoid colon with diagnosis of metastatic poorly differentiated adenocarcinoma, favor ovarian primary. July 11, 2023: 1. Flexible sigmoidoscopy 2. Placement of tunneled Pleurx abdominal catheter 3. Laparoscopic sigmoid loop colostomy Pathology: MICROSCOPIC DIAGNOSIS A. Peritoneal biopsy: A few highly atypical cells present, consistent with involvement by metastatic adenocarcinoma. B. Segment of sigmoid colon, segmental resection: Metastatic poorly differentiated adenocarcinoma. See comment. SJ:anna 07/14/2023 COMMENT B. The tumor is present on the serosal surface of the colonic tissue. Immunohistochemistry ([id number]) supports the above diagnosis and favors ovarian primary. Clinical correlation and appropriate follow up are necessary. ANTIBODY / CLONE RESULT Block B2 ER (6F11) positive, weak, focal AR (1E2) positive, moderate Her-2neu (CB11) negative (1+) AE1-3 (AE1/AE3/PCK26) positive CK7 (OV-TL12/30) positive CK8 (55encwF99) positive CK20 (KS20.8) negative MOC-31 (4561) positive CDX2 ([id number]) negative TTF-1 (8G7G3/1) negative Napsin A (Rabbit Polyclonal) negative HepPar (OCh1E5) negative RCC (PN-15) negative CALRET (polyclonal) negative CK5-6 (D5 & 1684) negative P40 (BC28) negative CEA (11-7/TF-3HB-1) positive, rare cells CA125 (OC125) positive MLH-1 (M1) positive MSH2 (25D12) positive MSH6 (44) positive PMS2 ([id number]) positive Ki-67 (30-9) positive, high, ~80% P53 (DO-7) positive, missense mutation pattern July 13, 2023 Laparotomy with resection of loop colostomy and creation of end colostomy due to bowel ischemia. Advanced Directives Power of Fleet Manager/Dispatch: Yes Living Will: Yes [facility] Medical History (Updated 07/16/23 @ 18:[address] Chelle Daniels MD) Ascites Constipation Depressed Hypertension Malignant ascites Peritoneal carcinomatosis Pleural effusion Home Medications bupropion HCl 150 mg 24 hr tablet, extended release 150 mg PO DAILY depression 09/24/15 [History Last Taken 07/10/23] calcium carbonate 600 mg-vitamin D3 20 mcg (800 unit) tablet 1 ea PO DAILY 09/24/15 [History Last Taken Unknown] clorazepate dipotassium 7.5 mg tablet (Tranxene T-Tab) 15 mg PO DAILY PRN anxiety 09/24/15 [History Last Taken 07/09/23] escitalopram oxalate 10 mg tablet 20 mg PO DAILY depression 09/24/15 [History Last Taken 07/10/23] imipramine HCl 50 mg tablet (Tofranil) 100 mg PO QHS see 09/24/15 [History Last Taken 07/09/23] levothyroxine 50 mcg tablet 50 mcg PO DAILY thyroid 09/24/15 [History Last Taken 07/10/23] polyethylene glycol 3350 17 gram oral powder packet 17 g PO DAILY PRN PRN Constipation 09/24/15 [History Last Taken Unknown] pravastatin 20 mg tablet 20 mg PO QHS cholesterol 09/24/15 [History Last Taken 07/09/23] amlodipine 5 mg tablet 5 mg PO DAILY bp 07/10/23 [History Last Taken 07/07/23] aspirin 81 mg tablet,delayed release (Adult Low Dose Aspirin) 81 mg PO DAILY platlet 07/10/23 [History Last Taken 07/10/23] cinnamon bark 500 mg capsule (Cinnamon) 500 mg PO DAILY high sugar 07/10/23 [History Last Taken 05/26/23] cyanocobalamin (vitamin B-12) 5,000 mcg sublingual tablet (Vitamin B-12) 5,000 mcg sublingual .COMPLEX vitamin 07/10/23 [History Last Taken 07/09/23] linaclotide 72 mcg capsule (Linzess) 72 mcg PO DAILY constipation 07/10/23 [History Last Taken 07/09/23] losartan 25 mg tablet 12.5 mg PO DAILY bp 07/10/23 [History Last Taken 07/08/23] Allergy/AdvReac Type Severity Reaction Status Date / Time meperidine HCl [From Demerol] AdvReac Vomiting Verified 07/10/23 17:30 midazolam HCl [From Versed] AdvReac Vomiting Verified 07/10/23 17:30 Social History Smoking Status: Never smoker substance use type: does not use ROS Constitutional Constitutional: Reports fatigue, poor appetite and weight loss; Denies fever(s) ENT HEENT: Denies dysphagia Cardiovascular Cardiovascular: Reports edema; Denies chest pain or dyspnea Respiratory/Chest Respiratory/Chest: Reports dyspnea; Denies hemoptysis Gastrointestinal Gastrointestinal: Reports abdominal pain and other Details: Since her surgery the bloating has improved, she has some abdominal pain as expected from recent surgery ; Denies bloating, change in bowel habits, hematochezia, melena, nausea or vomiting Genitourinary Genitourinary: Reports change in urinary stream, urinary incontinence and other Details: Occasional urge or stress incontinence ; Denies hematuria Musculoskeletal Musculoskeletal: Denies back pain Integumentary Integumentary: Reports erythema and other Details: Over the sacrum but no skin breakdown Neurologic Neurologic: Reports other Details: Generalized weakness ; Denies abnormal speech, focal weakness or headache(s) Hematologic/Lymphatic Hematologic/Lymphatic: Denies easy bleeding or lymphadenopathy Physical Exam Narrative ECOG 3 Const alert and oriented x3 General Appearance: cooperative, ill appearing Positive for chronically and frail HEENT normocephalic Eyes no scleral icterus Neck no JVD General: Negative for lymphadenopathy Resp clear to auscultation bilaterally Auscultation: diminished lung sounds bilateral lower Cardio regular rate and regular rhythm GI soft to palpation GI Narrative: No peritonism but tenderness around the recent abdominal incisions, Pleurx abdominal catheter present Inspection: ostomy present Palpation: Negative for mass or ascites Extremity General Extremity: edema bilateral lower extremity Details: mild Skin Skin Narrative: Reported by family and patient's nurse erythema over the sacrum but no skin breakdown Neuro CN's II-XII intact bilaterally, moves all extremities and no focal motor deficits Motor Exam: general weakness Psych mental status grossly normal, cooperative, affect normal and speech normal Vital Signs Temperature 97.8 F 07/16/23 15:00 Temperature Source Oral 07/16/23 15:00 Pulse Rate 87 07/16/23 15:00 Pulse Strength Normal (2+) 07/16/23 08:32 Respiratory Rate 17 07/16/23 15:00 Respiratory Effort Normal, Non-Labored 07/15/23 08:19 Respiratory Depth Normal 07/15/23 08:19 Respiratory Pattern Normal 07/15/23 08:19 Blood Pressure 137/66 H 07/16/23 15:00 Blood Pressure Mean 89 07/16/23 15:00 Blood Pressure Source Monitor 07/16/23 15:00 Blood Pressure Position Semi-Fowlers 07/16/23 15:00 Blood Pressure Location Right Arm 07/16/23 15:00 Baseline BP 148/72 07/13/23 16:48 Pulse Ox 99 07/16/23 15:00 Oxygen Delivery Method Room Air 07/16/23 15:00 Oxygen Flow Rate (L/min) 2 07/14/23 01:07 Laboratory Tests 07/11/23 09:52 CA 19-9 Antigen 4 CA 125 Antigen 286.0 H Laboratory Tests 07/11/23 09:52 CA 19-9 Antigen 4 CA 125 Antigen 286.0 H I personally reviewed patient's CT scan images and concur with reported finding See under HPI
[2023-07-16] MEDS: Ibuprofen 600 MG Tablet PO (19:48)
[2023-07-16 20:00] VITALS: BP 153/78; PULSE 80; RESP 16; TEMP 36.7; O2SAT 100
[2023-07-16] MEDS: Pravastatin 20 MG Tablet PO (21:19)
[2023-07-16] MEDS: Imipramine HCl 25 MG Tablet 100 MG PO (21:19)
[2023-07-16] MEDS: Losartan Potassium 25 MG Tablet 12.5 MG PO (21:19)
[2023-07-17 02:00] VITALS: BP 137/56; PULSE 79; RESP 16; TEMP 36.7; O2SAT 98
[2023-07-17] MEDS: Piperacil/Tazobactam 3.375 GM in 0.9% Normal Saline (50mL MB+) 50 ML IV (05:37)
[2023-07-17] MEDS: Levothyroxine 50 MCG Tablet PO (05:43)
[2023-07-17] MEDS: Acetaminophen 325 MG Tablet 650 MG PO ×2 (05:43→16:10)
[2023-07-17 07:09] LABS: Absolute Neutrophil Count 4.6 X10^3/uL (2.0-7.7); Basophil# 0.02 X10^3/uL; Basophil% 0.3 % (0-1); Eosinophil# 0.09 X10^3/uL; Eosinophils% 1.3 % (0-5); Hematocrit 24.7 % (37-47); Lymphocyte % 16.4 % (19-41); Mean Corp Hgb Conc 32.4 g/dL (32-36); Mean Corpuscular Hgb 29.7 pg (27.0-32.0); Mean Corpuscular Volume 91.8 fL (81-99); Mean Platelet Vol. 9.4 fl (6.2-12.0); Monocyte# 0.86 X10^3/uL; Monocyte% 12.8 % (0-10); NRBC Flagged by Analyzer 0 % (0-5); Neutrophil # 4.58 X10^3/uL (2.7-7.7); Neutrophil % 68.3 % (47-70); Platelet Count 316 K/mm3 (150-450); RBC Distribution Width CV 13.2 % (11.6-14.6); RBC Distribution Width SD 43.8 fl (35.1-43.9); Red Blood Count 2.69 M/mm3 (4.2-5.4); White Blood Count 6.7 K/mm3 (4.4-11.0)
[2023-07-17 07:42] LABS: Anion Gap 4 (5-15); BUN 8 mg/dL (7-18); BUN/Creat Ratio 15.6 RATIO (10-20); Calcium,Total 7.6 mg/dL (8.5-10.1); Chloride 109 mmol/L (98-107); Creatinine, Serum 0.51 mg/dL (0.55-1.02); EST Glomerular Filtration Rate 122 mL/min (>60); Est Glom Filt Rate - Afr Amer 148 mL/min (>60); Estimated Creatinine Clearance 34.28 ml/min; Glucose 100 mg/dL (74-106); Potassium 2.3 mmol/L (3.5-5.1); Sodium Level 141 mmol/L (136-145)
[2023-07-17] MEDS: buPROPion (XL) 150 MG TABLET.XL PO (07:51)
[2023-07-17] MEDS: amLODIPine 5 MG Tablet PO (07:51)
[2023-07-17] MEDS: Enoxaparin 40 MG/0.4 ML Syringe SC (07:51)
[2023-07-17] MEDS: Menthol/Lanolin/Calamine/Znox 113 GM Tube 1 APPLIC TOPICAL ×2 (07:52→21:14)
[2023-07-17 08:00] VITALS: RESP 16; O2SAT 98
[2023-07-17] MEDS: Furosemide 40 MG Tablet PO (08:00)
[2023-07-17 08:27] VITALS: BP 145/70; PULSE 82; RESP 16; TEMP 36.7; O2SAT 98
[2023-07-17] MEDS: Potassium Chloride 10mEq/100mL 10 MEQ/100 ML IV.SOLN. 100 MEQ IV BOLUS ×5 (08:33→23:42)
[2023-07-17] MEDS: Potassium Chloride 10mEq/100mL 10 MEQ/100 ML IV.SOLN. 80 MEQ IV BOLUS ×3 (09:50→12:56)
--- NOTE | 2023-07-17 10:03 | CASEMGMT ---
Social Work SW received a referral from RN that physician is requesting referral to hospice. SW met with pt, vanessa Goode and daughter in law and introduced self and role of SW. Pt and family confirm that they do not want to pursue treatment and would be agreeable to meet with hospice. SW discussed hospice company options and family choosing referral to be sent to [facility]. Phone call to Agueda at [facility] and referral placed. Clinicals faxed. Agueda to reach out to vanessa Goode to set an appointment for consultation. DEBBIE Miguel
--- NOTE | 2023-07-17 10:24 | PN.SURG_ITS ---
Subjective Subjective The patient is having flatus from her colostomy bag and tolerated some clear liquids yesterday. She was complaining of some swelling of her lower extremities yesterday. Doppler ultrasound was negative. Objective Data Objective Data Vital Signs: Vital Signs Temp Pulse Resp BP Pulse Ox O2 Del Method O2 Flow Rate 98.0 F 82 16 145/70 H 98 Room Air 2 07/17/23 08:27 07/17/23 08:27 07/17/23 08:27 07/17/23 08:27 07/17/23 08:27 07/17/23 08:27 07/14/23 01:07 Oxygen Flow Rate (L/min) 2 Oxygen Delivery Method Room Air Weight: 106 lb 11.26 oz Body Mass Index (BMI) 18.3 Intake & Output: Intake and Output for Last 24 Hours 07/15/23 07/16/23 07/17/23 23:59 23:59 23:59 Intake Total 2180 / 2180 2495 / 2495 150.00 / 150.00 Output Total 500 / 500 2200 / 2500 1320 / 1320 Balance 1680 / 1680 295 / -5 -1170.00 / -1170.00 Medical Nutrition Assessment Dietitian: Malnutrition Criteria Met Start: 07/16/23 14:13 Freq: Status: Active Protocol: Document 07/16/23 14:13 AG (Rec: 07/16/23 14:13 [id number]) Nutrition Malnutrition Evidence of Malnutrition Exists Yes Malnutrition (severe): Chronic Evidenced By Suboptimal Energy Intake ( Severe),Physical Changes ( Severe) Intake Problem Inadequate Oral Intake Etiology related to GI dysfunction Signs/Symptoms as evidenced by no PO intake x 6 days Status Active Problem Clinical Problem Chronic Disease or Condition Related Malnutrition Etiology severe, chronic malnutrition related to inadequate energy intake Signs/Symptoms as evidenced by severe muscle wasting/fat loss per physical assessment, estimated energy intake meeting <75% of estimated energy needs > 1 month; BMI 18.3 Status Active Problem Recommendation Dietitian Recommendations/Changes recommend advance diet as tolerated to transitional; will add 240mL ensure clear w/ meals Lab / Micro Data 07/17/23 06:40 07/17/23 06:40 Labs: Laboratory Results - last 24 hr 07/17/23 06:40: WBC 6.7, RBC 2.69 L, Hgb 8.0 L, Hct 24.7 L, MCV 91.8, MCH 29.7, MCHC 32.4, RDW Std Deviation 43.8, RDW Coeff of Joleen 13.2, Plt Count 316, MPV 9.4, Immature Gran % (Auto) 0.900, Neut % (Auto) 68.3, Lymph % (Auto) 16.4 L, Hart % (Auto) 12.8 H, Eos % (Auto) 1.3, Baso % (Auto) 0.3, Absolute Neuts (auto) 4.6, Absolute Lymphs (auto) 1.10, Nucleated RBC % 0, Sodium 141, Potassium 2.3 L*, Chloride 109 H, Carbon Dioxide 28.0, Anion Gap 4 L, BUN 8, Creatinine 0.51 L , Estim Creat Clear Calc 34.28, Est GFR (MDRD) Af Amer 148, Est GFR (MDRD) Non- Af 122, BUN/Creatinine Ratio 15.6, Glucose 100, Calcium 7.6 L Micro: Microbiology 07/10/23 21:15 Fluid - Paracentesis (Abd) Gram Stain - Final 07/10/23 21:15 Fluid - Paracentesis (Abd) Body Fluid Culture - Final Culture exhibits no growth. 07/10/23 21:15 Fluid - Paracentesis (Abd) Anaerobic Culture - Final No growth in 5 days. 07/11/23 05:30 Urine, Clean Catch Urine Culture - Final Staphylococcus epidermidis Radiography Diagnostic Testing: Radiology Impression Venous Doppler Study 07/16/23 16:22 Interpretation Summary Deep veins of the lower extremities are bilaterally patent and compressible segmentally. There is no evidence of deep vein thrombosis on either side. Valvular competence appears intact within the proximal deep venous systems bilaterally. The great saphenous veins appear bilaterally patent and compressible segmentally. A non-vascular, hypoechoic area is noted within the muscular portion of the left proximal thigh, measuring 0.86 cm x 0.50 cm. This may represent a hematoma or seroma. Clinical correlation is advised. Ordering Physician: Doroteo Denney Referring Physician: Melissa Yeung D.O. Performed By: Ketan Guillermo RVT Physical Exam Const no apparent distress Resp normal respiratory effort GI soft to palpation and non-tender Assessment & Plan Assessment/Plan (1) Disseminated ovarian cancer: QUALIFIERS: Laterality: unspecified laterality Qualified Code(s): C56.9 - Malignant neoplasm of unspecified ovary PLAN: Patient has hypokalemia that is being repleted. The patient has swelling of her lower extremities and Dopplers are negative and I will stop her fluids and order some oral Lasix. The patient saw oncology yesterday and does not think she will be moving forward with chemotherapy and would like to have a discussion with hospice so I will consult them. I am having PT OT see her as well. I will advance her to a full liquid diet. Hopeful for discharge this weekend. Doroteo Denney MD Pager: [facility] [address] [place] [address], [address] [place] [address] Office:
--- NOTE | 2023-07-17 10:26 | DS.PCM_ITS ---
Providers Date of Admission: 07/10/23 Primary Care Physician: Dr. Melissa Yeung DO Consultations 07/13/23 05:31 Consult: Onc/Wound/supervisor throwing department Routine Comment: Reason for Consult:: new colostomy 07/15/23 18:30 Consult: Oncology/Hematology Routine [facility] Reason for Consult: metastatic ovarian cancer EMERGENT Consult: No MD Notified: Yes Date Notified: 07/15/23 Time Notified: 18:30 Method of Notification: Text Reason For Visit: ABDOMINAL PAIN Diagnosis Discharge Diagnosis (1) Disseminated ovarian cancer: Status: Acute Code(s): C56.9 - Malignant neoplasm of unspecified ovary Qualifiers: Laterality: unspecified laterality Qualified Code(s): C56.9 - Malignant neoplasm of unspecified ovary Plan: Patient has hypokalemia that is being repleted. The patient has swelling of her lower extremities and Dopplers are negative and I will stop her fluids and order some oral Lasix. The patient saw oncology yesterday and does not think she will be moving forward with chemotherapy and would like to have a discussion with hospice so I will consult them. I am having PT OT see her as well. I will advance her to a full liquid diet. Hopeful for discharge this weekend. Doroteo Denney MD Pager: [facility] [address] [place] [address], [address] [place] [address] Office: Medications at Discharge Home Medications bupropion HCl 150 mg 24 hr tablet, extended release 150 mg PO DAILY depression 09/24/15 calcium carbonate 600 mg-vitamin D3 20 mcg (800 unit) tablet 1 ea PO DAILY 09/24/15 clorazepate dipotassium 7.5 mg tablet (Tranxene T-Tab) 15 mg PO DAILY PRN anxi ety 09/24/15 escitalopram oxalate 10 mg tablet 20 mg PO DAILY depression 09/24/15 imipramine HCl 50 mg tablet (Tofranil) 100 mg PO QHS see 09/24/15 levothyroxine 50 mcg tablet 50 mcg PO DAILY thyroid 09/24/15 polyethylene glycol 3350 17 gram oral powder packet 17 g PO DAILY PRN PRN Constipation 09/24/15 pravastatin 20 mg tablet 20 mg PO QHS cholesterol 09/24/15 amlodipine 5 mg tablet 5 mg PO DAILY bp 07/10/23 aspirin 81 mg tablet,delayed release (Adult Low Dose Aspirin) 81 mg PO DAILY platlet 07/10/23 cinnamon bark 500 mg capsule (Cinnamon) 500 mg PO DAILY high sugar 07/10/23 cyanocobalamin (vitamin B-12) 5,000 mcg sublingual tablet (Vitamin B-12) 5,000 mcg sublingual .COMPLEX vitamin 07/10/23 losartan 25 mg tablet 12.5 mg PO DAILY bp 07/10/23 Hospital Course Summary of Care Provided Hospital Course: Patient was admitted with a colonic obstruction. She was taken for flexible sigmoidoscopy but the obstruction was unable to be passed so she was taken for laparotomy with loop sigmoid colostomy. She had a complication the following day where the loop colostomy started to becoming ischemic. She returned to the operating room to convert the loop colostomy to an end colostomy. At that time she was found to have carcinomatosis. This was biopsied. The pathology on the ascites and the tissue came back metastatic ovarian cancer. Oncology was consulted. Hospice was consulted as well. The patient started passing flatus and was started on a diet slowly. Once tolerating a diet she will be discharged home and she will likely participate in hospice care. Medical Records Data Medical Nutrition Assessment Dietitian: Malnutrition Criteria Met Start: 07/16/23 14:13 Freq: Status: Active Protocol: Document 07/16/23 14:13 AG (Rec: 07/16/23 14:13 AG [id number]) Nutrition Malnutrition Evidence of Malnutrition Exists Yes Malnutrition (severe): Chronic Evidenced By Suboptimal Energy Intake ( Severe),Physical Changes ( Severe) Intake Problem Inadequate Oral Intake Etiology related to GI dysfunction Signs/Symptoms as evidenced by no PO intake x 6 days Status Active Problem Clinical Problem Chronic Disease or Condition Related Malnutrition Etiology severe, chronic malnutrition related to inadequate energy intake Signs/Symptoms as evidenced by severe muscle wasting/fat loss per physical assessment, estimated energy intake meeting <75% of estimated energy needs > 1 month; BMI 18.3 Status Active Problem Recommendation Dietitian Recommendations/Changes recommend advance diet as tolerated to transitional; will add 240mL ensure clear w/ meals Weight / BMI Weight Weight: 106 lb 11.26 oz Body Mass Index (BMI) 18.3 ABG / Lab / Microbiology Data 07/17/23 06:40 07/17/23 06:40 Laboratory: Laboratory Results - last 24 hr 07/17/23 06:40: WBC 6.7, RBC 2.69 L, Hgb 8.0 L, Hct 24.7 L, MCV 91.8, MCH 29.7, MCHC 32.4, RDW Std Deviation 43.8, RDW Coeff of Joleen 13.2, Plt Count 316, MPV 9.4, Immature Gran % (Auto) 0.900, Neut % (Auto) 68.3, Lymph % (Auto) 16.4 L, Darke % (Auto) 12.8 H, Eos % (Auto) 1.3, Baso % (Auto) 0.3, Absolute Neuts (auto) 4.6, Absolute Lymphs (auto) 1.10, Nucleated RBC % 0, Sodium 141, Potassium 2.3 L*, Chloride 109 H, Carbon Dioxide 28.0, Anion Gap 4 L, BUN 8, Creatinine 0.51 L , Estim Creat Clear Calc 34.28, Est GFR (MDRD) Af Amer 148, Est GFR (MDRD) Non- Af 122, BUN/Creatinine Ratio 15.6, Glucose 100, Calcium 7.6 L Microbiology: Microbiology 07/10/23 21:15 Fluid - Paracentesis (Abd) Gram Stain - Final 07/10/23 21:15 Fluid - Paracentesis (Abd) Body Fluid Culture - Final Culture exhibits no growth. 07/10/23 21:15 Fluid - Paracentesis (Abd) Anaerobic Culture - Final No growth in 5 days. 07/11/23 05:30 Urine, Clean Catch Urine Culture - Final Staphylococcus epidermidis Radiography Diagnostic Testing: Radiology Impression Venous Doppler Study 07/16/23 16:22 Interpretation Summary Deep veins of the lower extremities are bilaterally patent and compressible segmentally. There is no evidence of deep vein thrombosis on either side. Valvular competence appears intact within the proximal deep venous systems bilaterally. The great saphenous veins appear bilaterally patent and compressible segmentally. A non-vascular, hypoechoic area is noted within the muscular portion of the left proximal thigh, measuring 0.86 cm x 0.50 cm. This may represent a hematoma or seroma. Clinical correlation is advised. Ordering Physician: Doroteo Denney Referring Physician: Melissa Yeung D.O. Performed By: Ketan uGillermo RVT D/C Instructions Discharge Diet: Light diet - advance as tolerated Discharge Activity: May Shower Weight Bearing Status: Weight bearing as tolerated Lifting Restrictions: 15 lbs for 4 weeks Call your doctor if your incision/area has: Continuous Slow Oozing, Sudden Increased Bleeding, Increased Pain/ Swelling, Increased Redness, Foul Smelling Discharge and Swelling at the incision site Call your doctor if you observe: Fever of 101 or Higher and Inability to have a bowel movement Change Dressing in: 1 day Cleanse incision/area with: Soap & Water Please Follow Up With: Doroteo Denney MD When: Please call to schedule 1 week follow up appointment. [phone] Meaningful Use Info Meaningful Use Diagnoses (Choose all that apply): None applicable Discharge Plan Admission Admit Date/Time: 07/10/23 21:31 Attending Provider: Doroteo Denney Primary Care Provider: Melissa Yeung Consulting Providers: Zana Yeh; aVzquez Restrepo; Chelle Daniels; Zackary Quezada; Sharath Moyer; Wilner Lundberg; Sanchez Pearson; Lili Shah HOSPICE/HOME HEALTH AIDE Discharge Orders/Prescriptions Prescriptions: Continued imipramine HCl [Tofranil] 50 MG tablet 100 mg PO QHS polyethylene glycol 3350 17 GM powder in packet 17 g PO DAILY PRN PRN (Reason: Constipation) levothyroxine 50 MCG tablet 50 mcg PO DAILY Patient Comments: 100 MCG ON saturdays and SUNDAYS pravastatin 20 MG tablet 20 mg PO QHS clorazepate dipotassium [Tranxene T-Tab] 7.5 MG tablet 15 mg PO DAILY PRN (Reason: anxiety) escitalopram oxalate 10 MG tablet 20 mg PO DAILY bupropion HCl 150 MG tablet extended release 24 hr 150 mg PO DAILY calcium carbonate-vitamin D3 1 EACH tablet 1 ea PO DAILY aspirin [Adult Low Dose Aspirin] 81 mg tablet,delayed release (DR/EC) 81 mg PO DAILY amlodipine 5 mg tablet 5 mg PO DAILY losartan 25 mg tablet 12.5 mg PO DAILY cyanocobalamin (vitamin B-12) [Vitamin B-12] 5,000 mcg tablet, sublingual 5,000 mcg sublingual .COMPLEX Rx Instructions: 5,000 mcg sublingually; 2 times a week, Tuesdays and cinnamon bark [Cinnamon] 500 mg capsule 500 mg PO DAILY Discontinued Linzess 72 mcg capsule 72 mcg PO DAILY Referrals / Follow Up: Melissa Yeung DO [Primary Care Provider] -
[2023-07-17] MEDS: Ibuprofen 600 MG Tablet PO ×2 (10:46→21:13)
--- NOTE | 2023-07-17 16:39 | CASEMGMT ---
Social Work Account Resolution Expert here and meeting with pt and family. Pt signed for services with hospice. Per Liaison, family needs time to rearrange home for pt to come home to and DME will be delivered on Thursday. Pt can be discharged home with hospice care on Thursday afternoon or Thursday. Bedside nurse made aware. Plan: Home with Hospice Services, Thursday or Thursday DEBBIE Miguel
[2023-07-17 18:04] LABS: Potassium 2.4 mmol/L (3.5-5.1)
[2023-07-17 18:22] VITALS: BP 114/68; PULSE 86; RESP 16; TEMP 36.6
--- NOTE | 2023-07-17 19:26 | NURSING ---
ambulated around 1/2 the unit, tolerated well. lying on rt side in bed. granddaughter at bedside
[2023-07-17] MEDS: Ondansetron 4 MG/2 ML Vial IV (19:42)
[2023-07-17] MEDS: 0.9% Saline Lock 10 ML Syringe IV (19:58)
[2023-07-17 20:30] VITALS: BP 149/66; PULSE 88; RESP 16; TEMP 36.6; O2SAT 97
[2023-07-17] MEDS: Imipramine HCl 25 MG Tablet 100 MG PO (21:13)
[2023-07-17] MEDS: Losartan Potassium 25 MG Tablet 12.5 MG PO (21:13)
[2023-07-17] MEDS: Pravastatin 20 MG Tablet PO (21:14)
[2023-07-18 02:00] VITALS: BP 122/64; PULSE 85; RESP 16; TEMP 37; O2SAT 96
[2023-07-18] MEDS: Acetaminophen 325 MG Tablet 650 MG PO ×3 (02:17→18:48)
[2023-07-18] MEDS: 0.9% Saline Lock 10 ML Syringe IV (02:18)
[2023-07-18] MEDS: Ondansetron 4 MG/2 ML Vial IV (02:18)
[2023-07-18] MEDS: Ibuprofen 600 MG Tablet PO ×3 (05:30→20:17)
[2023-07-18] MEDS: Levothyroxine 50 MCG Tablet PO (05:30)
[2023-07-18 06:13] LABS: Absolute Lymphocyte Count 1.28 X10^3/uL (0.83-4.51); Absolute Neutrophil Count 4.7 X10^3/uL (2.0-7.7); Basophil# 0.02 X10^3/uL; Basophil% 0.3 % (0-1); Eosinophil# 0.13 X10^3/uL; Eosinophils% 1.8 % (0-5); Hematocrit 25.4 % (37-47); Hemoglobin 8.3 g/dL (12.0-15.0); Lymphocyte # 1.28 X10^3/ul (0.83-4.51); Lymphocyte % 17.3 % (19-41); Mean Corp Hgb Conc 32.7 g/dL (32-36); Mean Corpuscular Hgb 29.7 pg (27.0-32.0); Mean Platelet Vol. 10.2 fl (6.2-12.0); Monocyte# 1.07 X10^3/uL; Monocyte% 14.4 % (0-10); NRBC Flagged by Analyzer 0 % (0-5); Neutrophil # 4.73 X10^3/uL (2.7-7.7); Neutrophil % 63.8 % (47-70); POSITIVE MORPHOLOGY YES; Platelet Count 346 K/mm3 (150-450); RBC Distribution Width CV 13.1 % (11.6-14.6); RBC Distribution Width SD 43.4 fl (35.1-43.9); Red Blood Count 2.79 M/mm3 (4.2-5.4); White Blood Count 7.4 K/mm3 (4.4-11.0)
[2023-07-18 06:47] LABS: Differential Indicated SCAN CRITERIA MET
[2023-07-18 07:00] LABS: Anion Gap 3 (5-15); BUN 9 mg/dL (7-18); BUN/Creat Ratio 17.6 RATIO (10-20); Calcium,Total 7.9 mg/dL (8.5-10.1); Chloride 108 mmol/L (98-107); Creatinine, Serum 0.51 mg/dL (0.55-1.02); EST Glomerular Filtration Rate 123 mL/min (>60); Est Glom Filt Rate - Afr Amer 149 mL/min (>60); Estimated Creatinine Clearance 34.28 ml/min; Glucose 95 mg/dL (74-106); Magnesium 1.5 mg/dL (1.6-2.6); Potassium 2.9 mmol/L (3.5-5.1); Sodium Level 141 mmol/L (136-145)
[2023-07-18 08:00] VITALS: RESP 18
[2023-07-18 08:36] VITALS: BP 122/65; PULSE 87; RESP 16; TEMP 36.8; O2SAT 98
[2023-07-18] MEDS: Menthol/Lanolin/Calamine/Znox 113 GM Tube 1 APPLIC TOPICAL ×2 (08:43→20:19)
[2023-07-18] MEDS: Potassium Chloride Oral Tablet 20 MEQ 60 MEQ PO (10:19)
[2023-07-18] MEDS: Potassium Chloride 10mEq/100mL 10 MEQ/100 ML IV.SOLN. 100 MEQ IV BOLUS (10:20)
[2023-07-18] MEDS: Enoxaparin 40 MG/0.4 ML Syringe SC (10:26)
[2023-07-18] MEDS: buPROPion (XL) 150 MG TABLET.XL PO (10:26)
[2023-07-18] MEDS: amLODIPine 5 MG Tablet PO (10:26)
--- NOTE | 2023-07-18 10:59 | PCM.PN.SRG ---
Subjective Subjective Patient seen and examined during AM rounds. She is found sitting up in bed. Her granddaughter provides much of the history and is pleased to report that her grandmother has not experienced any hallucinations or altered mental status overnight. Patient denies any significant discomfort and reports that she is wanting to try more of a diet. Objective Data Objective Data Vital Signs: Vital Signs Temp Pulse Resp BP Pulse Ox O2 Del Method O2 Flow Rate 98.3 F 87 16 122/65 H 98 Room Air 2 07/18/23 08:36 07/18/23 08:36 07/18/23 08:36 07/18/23 08:36 07/18/23 08:36 07/18/23 08:36 07/14/23 01:07 Oxygen Flow Rate (L/min) 2 Oxygen Delivery Method Room Air Weight: 106 lb 11.26 oz Body Mass Index (BMI) 18.3 Intake & Output: Intake and Output for Last 24 Hours 07/16/23 07/17/23 07/18/23 23:59 23:59 23:59 Intake Total 2495 / 2495 779.79 / 779.79 100 / 100 Output Total 2200 / 2500 2070 / 2290 835 / 835 Balance 295 / -5 -1290.21 / -1510.21 -735 / -735 Medical Nutrition Assessment Dietitian: Malnutrition Criteria Met Start: 07/16/23 14:13 Freq: Status: Active Protocol: Document 07/16/23 14:13 AG (Rec: 07/16/23 14:13 [id number]) Nutrition Malnutrition Evidence of Malnutrition Exists Yes Malnutrition (severe): Chronic Evidenced By Suboptimal Energy Intake ( Severe),Physical Changes ( Severe) Intake Problem Inadequate Oral Intake Etiology related to GI dysfunction Signs/Symptoms as evidenced by no PO intake x 6 days Status Active Problem Clinical Problem Chronic Disease or Condition Related Malnutrition Etiology severe, chronic malnutrition related to inadequate energy intake Signs/Symptoms as evidenced by severe muscle wasting/fat loss per physical assessment, estimated energy intake meeting <75% of estimated energy needs > 1 month; BMI 18.3 Status Active Problem Recommendation Dietitian Recommendations/Changes recommend advance diet as tolerated to transitional; will add 240mL ensure clear w/ meals Lab / Micro Data 07/18/23 05:23 07/18/23 05:23 Labs: Laboratory Results - last 24 hr 07/17/23 16:42: Potassium 2.4 L* 07/18/23 05:23: WBC 7.4, RBC 2.79 L, Hgb 8.3 L, Hct 25.4 L, MCV 91.0, MCH 29.7, MCHC 32.7, RDW Std Deviation 43.4, RDW Coeff of Joleen 13.1, Plt Count 346, MPV 10.2, Immature Gran % (Auto) 2.400 H, Neut % (Auto) 63.8, Lymph % (Auto) 17.3 L, Sharkey % (Auto) 14.4 H, Eos % (Auto) 1.8, Baso % (Auto) 0.3, Absolute Neuts (auto) 4.7, Absolute Lymphs (auto) 1.28, Nucleated RBC % 0, Sodium 141, Potassium 2.9 L, Chloride 108 H, Carbon Dioxide 30.0, Anion Gap 3 L, BUN 9, Creatinine 0.51 L, Estim Creat Clear Calc 34.28, Est GFR (MDRD) Af Amer 149, Est GFR (MDRD) Non-Af 123, BUN/Creatinine Ratio 17.6, Glucose 95, Calcium 7.9 L, Magnesium 1.5 L Micro: Microbiology 07/10/23 21:15 Fluid - Paracentesis (Abd) Gram Stain - Final 07/10/23 21:15 Fluid - Paracentesis (Abd) Body Fluid Culture - Final Culture exhibits no growth. 07/10/23 21:15 Fluid - Paracentesis (Abd) Anaerobic Culture - Final No growth in 5 days. 07/11/23 05:30 Urine, Clean Catch Urine Culture - Final Staphylococcus epidermidis Physical Exam Const oriented x3 and no apparent distress Resp normal respiratory effort GI GI Narrative: Patient's abdomen is just mildly distended, soft, and minimally tender to palpation. There is copious thin light brown stool in her colostomy appliance. Because of the stool I am unable to clearly see the mucosa. Her operative dressing is taken down and there is some crusted drainage along the laparotomy wound but the wound is free of surrounding erythema or apparent drainage. Assessment & Plan Assessment/Plan (1) Disseminated ovarian cancer: QUALIFIERS: Laterality: unspecified laterality Qualified Code(s): C56.9 - Malignant neoplasm of unspecified ovary PLAN: Patient, once again, has hypokalemia that is being repleted. We will plan for recheck of electrolytes this afternoon. She appears to be having regular bowel function so I will advance her to a regular diet and have informed her that she should take it as she is interested. Patient previously saw oncology and yesterday saw hospice. There are tentative arrangements for patient to be prepared for home hospice by tomorrow, 07/19/2023. Patient's granddaughter has a number of questions and states that she would like to see her grandmother work with PT OT prior to discharge. Additionally, she questions whether or not it may be time for a tap of her Pleurx catheter as she is concerned that some of her abdominal distention may be related to developed ascites. ? Advance to regular diet ? Follow-up PT OT ? Patient okay to shower and simply cover colostomy ? Follow-up p.m. electrolytes and replace as needed ? Reexamine stomal mucosa ? Pleurx drainage Charges/Coding Visit Charges Inpatient E&M: 41947 Subs Hosp L2
[2023-07-18] MEDS: Potassium Chloride 10mEq/100mL 10 MEQ/100 ML IV.SOLN. 7.5 MEQ IV BOLUS (11:50)
[2023-07-18] MEDS: Magnesium Sulfate 2 GM in Dextrose 5%-Water (100mL Bag) 100 ML IV (13:14)
[2023-07-18 14:00] VITALS: BP 118/70; PULSE 80; RESP 18; TEMP 36.6; O2SAT 97
[2023-07-18 15:51] LABS: Anion Gap 3 (5-15); BUN 11 mg/dL (7-18); BUN/Creat Ratio 16.2 RATIO (10-20); Calcium,Total 7.6 mg/dL (8.5-10.1); Chloride 106 mmol/L (98-107); Creatinine, Serum 0.68 mg/dL (0.55-1.02); EST Glomerular Filtration Rate 88 mL/min (>60); Est Glom Filt Rate - Afr Amer 107 mL/min (>60); Estimated Creatinine Clearance 34.28 ml/min; Glucose 105 mg/dL (74-106); Magnesium 2.4 mg/dL (1.6-2.6); Potassium 3.7 mmol/L (3.5-5.1); Sodium Level 137 mmol/L (136-145)
[2023-07-18 20:16] VITALS: BP 123/66; PULSE 80; RESP 16; TEMP 36.4; O2SAT 100
[2023-07-18] MEDS: Pravastatin 20 MG Tablet PO (20:18)
[2023-07-18] MEDS: Losartan Potassium 25 MG Tablet 12.5 MG PO (20:19)
[2023-07-18] MEDS: Imipramine HCl 25 MG Tablet 100 MG PO (20:19)
[2023-07-19] MEDS: Acetaminophen 325 MG Tablet 650 MG PO ×4 (00:50→21:27)
[2023-07-19] MEDS: Ibuprofen 600 MG Tablet PO ×3 (02:43→17:51)
[2023-07-19 02:47] VITALS: BP 126/60; PULSE 81; RESP 16; TEMP 36.6; O2SAT 96
[2023-07-19] MEDS: Levothyroxine 50 MCG Tablet PO (04:48)
[2023-07-19 06:08] LABS: Anion Gap 5 (5-15); BUN 12 mg/dL (7-18); BUN/Creat Ratio 21.9 RATIO (10-20); Calcium,Total 7.8 mg/dL (8.5-10.1); Chloride 107 mmol/L (98-107); Creatinine, Serum 0.55 mg/dL (0.55-1.02); EST Glomerular Filtration Rate 113 mL/min (>60); Est Glom Filt Rate - Afr Amer 137 mL/min (>60); Estimated Creatinine Clearance 34.28 ml/min; Glucose 91 mg/dL (74-106); Magnesium 2.1 mg/dL (1.6-2.6); Phosphorus 1.8 mg/dL (2.5-4.9); Potassium 3.9 mmol/L (3.5-5.1); Sodium Level 138 mmol/L (136-145)
[2023-07-19 08:45] VITALS: BP 122/70; PULSE 74; RESP 16; TEMP 37.2; O2SAT 96
--- NOTE | 2023-07-19 09:11 | PN.SURG_ITS ---
Subjective Subjective Patient seen and examined during AM rounds. She notes that she feels well this morning, but remains apprehensive about going home since she has not had a formal physical therapy evaluation. She does confirm that she walked well with nursing yesterday but still feels weak. Her family reports that she slept for over 11 hours continuously last night which has translated into her feeling more refreshed this morning. Objective Data Objective Data Vital Signs: Vital Signs Temp Pulse Resp BP Pulse Ox O2 Del Method O2 Flow Rate 97.8 F 81 16 126/60 H 96 Room Air 2 07/19/23 02:47 07/19/23 02:47 07/19/23 02:47 07/19/23 02:47 07/19/23 02:47 07/19/23 02:47 07/14/23 01:07 Oxygen Flow Rate (L/min) 2 Oxygen Delivery Method Room Air Weight: 106 lb 11.26 oz Body Mass Index (BMI) 18.3 Intake & Output: Intake and Output for Last 24 Hours 07/17/23 07/18/23 07/19/23 23:59 23:59 23:59 Intake Total 779.79 / 779.79 1154 / 1354 300 / 300 Output Total 2070 / 2290 1385 / 1385 Balance -1290.21 / -1510.21 -231 / -31 300 / 300 Medical Nutrition Assessment Dietitian: Malnutrition Criteria Met Start: 07/16/23 14:13 Freq: Status: Active Protocol: Document 07/18/23 13:28 RMA (Rec: 07/18/23 13:28 RMA [id number]) Nutrition Malnutrition Evidence of Malnutrition Exists Yes Malnutrition (severe): Chronic Evidenced By Suboptimal Energy Intake ( Severe),Physical Changes ( Severe) Intake Problem Inadequate Oral Intake Etiology related to GI dysfunction Signs/Symptoms as evidenced by no PO intake x 6 days Status Resolved Problem Clinical Problem Chronic Disease or Condition Related Malnutrition Etiology severe, chronic malnutrition related to inadequate energy intake Signs/Symptoms as evidenced by severe muscle wasting/fat loss per physical assessment, estimated energy intake meeting <75% of estimated energy needs > 1 month; BMI 18.3 Status Active Problem Recommendation Dietitian Recommendations/Changes Continue regular diet as tolerated; 240mL ensure plus high protein BID w/ breakfast and dinner. Will add 240mL ensure clear w/ lunch. Adjust ONS as needed. Hospice referral noted. Lab / Micro Data 07/18/23 05:23 07/19/23 04:47 Labs: Laboratory Results - last 24 hr 07/18/23 15:21: Sodium 137, Potassium 3.7, Chloride 106, Carbon Dioxide 28.0, Anion Gap 3 L, BUN 11, Creatinine 0.68, Estim Creat Clear Calc 34.28, Est GFR (MDRD) Af Amer 107, Est GFR (MDRD) Non-Af 88, BUN/Creatinine Ratio 16.2, Glucose 105, Calcium 7.6 L, Magnesium 2.4 07/19/23 04:47: Sodium 138, Potassium 3.9, Chloride 107, Carbon Dioxide 26.0, Anion Gap 5, BUN 12, Creatinine 0.55, Estim Creat Clear Calc 34.28, Est GFR (M DRD) Af Amer 137, Est GFR (MDRD) Non-Af 113, BUN/Creatinine Ratio 21.9 H, Glu cose 91, Calcium 7.8 L, Phosphorus 1.8 L, Magnesium 2.1 Micro: Microbiology 07/10/23 21:15 Fluid - Paracentesis (Abd) Gram Stain - Final 07/10/23 21:15 Fluid - Paracentesis (Abd) Body Fluid Culture - Final Culture exhibits no growth. 07/10/23 21:15 Fluid - Paracentesis (Abd) Anaerobic Culture - Final No growth in 5 days. 07/11/23 05:30 Urine, Clean Catch Urine Culture - Final Staphylococcus epidermidis Physical Exam Const oriented x3 and no apparent distress Resp normal respiratory effort GI GI Narrative: Minimal abdominal distention, abdominal pad across laparotomy incision with scant serous drainage. Left lower quadrant colostomy with profuse mucosa and appliance with scant thin fecal output. Minimally tender to palpation right about colostomy. Assessment & Plan Assessment/Plan (1) Disseminated ovarian cancer: QUALIFIERS: Laterality: unspecified laterality Qualified Code(s): C56.9 - Malignant neoplasm of unspecified ovary PLAN: Patient remains postop from takeback for conversion of loop colostomy to end colostomy due to malperfusion. Her hypokalemia appears corrected today but she does exhibit some hypophosphatemia with her labs. A correction has been ordered with potassium phosphate. Mrs. Huffman continues to have bowel function and is tolerating a regular diet without issue. Patient previously saw oncology and yesterday saw hospice. Tentative arrangements are in place for home hospice by 2-day, however, patient's daughter and patient's state they have significant apprehension about discharging from the hospital without a formal PT evaluation. Patient's Pleurx catheter was accessed yesterday at bedside, however, despite repeated attempts to evacuate any clotting within the tubing I did not obtain any significant drainage when the catheter was placed to suction. ? Continue regular diet ? Follow-up PT OT ? Replete phosphate Dispo: Discharge to home with home hospice anticipated for tomorrow 07/20/2023 Charges/Coding Visit Charges Inpatient E&M: 01183 Subs Hosp L2
[2023-07-19] MEDS: Potassium Phosphate 21 MM in 0.9% Normal Saline (250mL Bag) 250 ML 84 MM IV (10:04)
[2023-07-19] MEDS: buPROPion (XL) 150 MG TABLET.XL PO (10:19)
[2023-07-19] MEDS: amLODIPine 5 MG Tablet PO (10:19)
[2023-07-19] MEDS: Menthol/Lanolin/Calamine/Znox 113 GM Tube 1 APPLIC TOPICAL ×2 (10:19→21:27)
[2023-07-19] MEDS: Enoxaparin 40 MG/0.4 ML Syringe SC (10:19)
[2023-07-19 16:25] VITALS: BP 134/63; PULSE 76; RESP 16; TEMP 36.4; O2SAT 96
[2023-07-19 20:59] VITALS: BP 121/53; PULSE 81; RESP 16; TEMP 37.1; O2SAT 96
[2023-07-19] MEDS: Imipramine HCl 25 MG Tablet 100 MG PO (21:22)
[2023-07-19] MEDS: Pravastatin 20 MG Tablet PO (21:27)
[2023-07-19] MEDS: Losartan Potassium 25 MG Tablet 12.5 MG PO (21:27)
[2023-07-19] MEDS: Ondansetron 4 MG/2 ML Vial IV (21:28)
[2023-07-20] MEDS: Ibuprofen 600 MG Tablet PO ×2 (00:16→06:01)
[2023-07-20 03:13] VITALS: BP 126/56; PULSE 87; RESP 16; TEMP 37; O2SAT 98
[2023-07-20] MEDS: Acetaminophen 325 MG Tablet 650 MG PO ×2 (03:13→09:27)
[2023-07-20] MEDS: Levothyroxine 50 MCG Tablet PO (05:59)
--- NOTE | 2023-07-20 08:59 | CASEMGMT ---
Addendum entered by Jennifer Galindo 07/20/23 10:15: Patient's family transporting patient home, no further d/c needs. Plan: family transporting home, home with [facility] KOMAL Hobbs Original Note: Social Work SW informed by patient's RN patient inquiring about D/C plan. SW met with patient and patient's family and introduced self and role as [facility] SW. Patient agreeable to speak to SW with family present. SW reviewed d/c plan home with Hospice. Patient's daughter confirmed DME arrived yesterday and they plan to contact Hospice once patient is up for d/c from [facility] to arrange meeting at home with Hospice. SW explained there wasn't d/c instructions yet on patient's file but once there was [facility] staff would update patient. No other questions at this time, SW remains available if needs arise. KOMAL Hobbs
[2023-07-20 09:00] VITALS: BP 132/62; PULSE 78; RESP 16; TEMP 36.6; O2SAT 98
[2023-07-20] MEDS: Menthol/Lanolin/Calamine/Znox 113 GM Tube 1 APPLIC TOPICAL (09:27)
[2023-07-20] MEDS: amLODIPine 5 MG Tablet PO (09:28)
[2023-07-20] MEDS: Enoxaparin 40 MG/0.4 ML Syringe SC (09:28)
[2023-07-20] MEDS: Pantoprazole Sodium 40 MG Tablet PO (09:30)
[2023-07-20] MEDS: buPROPion (XL) 150 MG TABLET.XL PO (09:30)
--- NOTE | 2023-07-20 10:06 | PCM.PN.SRG ---
Subjective Subjective Patient is tolerating some diet but she says she is still not very hungry. She is having gas and stool from her stoma and she is comfortable Objective Data Objective Data Vital Signs: Vital Signs Temp Pulse Resp BP Pulse Ox O2 Del Method O2 Flow Rate 98.6 F 87 16 126/56 H 98 Room Air 2 07/20/23 03:13 07/20/23 03:13 07/20/23 03:13 07/20/23 03:13 07/20/23 03:13 07/20/23 03:13 07/14/23 01:07 Oxygen Flow Rate (L/min) 2 Oxygen Delivery Method Room Air Weight: 106 lb 11.26 oz Body Mass Index (BMI) 18.3 Intake & Output: Intake and Output for Last 24 Hours 07/18/23 07/19/23 07/20/23 23:59 23:59 23:59 Intake Total 1154 / 1354 2107 / 2707 800 / 800 Output Total 1385 / 1385 Balance -231 / -31 210 / 2707 800 / 800 Medical Nutrition Assessment Dietitian: Malnutrition Criteria Met Start: 07/16/23 14:13 Freq: Status: Active Protocol: Document 07/18/23 13:28 RMA (Rec: 07/18/23 13:28 RMA [id number]) Nutrition Malnutrition Evidence of Malnutrition Exists Yes Malnutrition (severe): Chronic Evidenced By Suboptimal Energy Intake ( Severe),Physical Changes ( Severe) Intake Problem Inadequate Oral Intake Etiology related to GI dysfunction Signs/Symptoms as evidenced by no PO intake x 6 days Status Resolved Problem Clinical Problem Chronic Disease or Condition Related Malnutrition Etiology severe, chronic malnutrition related to inadequate energy intake Signs/Symptoms as evidenced by severe muscle wasting/fat loss per physical assessment, estimated energy intake meeting <75% of estimated energy needs > 1 month; BMI 18.3 Status Active Problem Recommendation Dietitian Recommendations/Changes Continue regular diet as tolerated; 240mL ensure plus high protein BID w/ breakfast and dinner. Will add 240mL ensure clear w/ lunch. Adjust ONS as needed. Hospice referral noted. Lab / Micro Data 07/18/23 05:23 07/19/23 04:47 Micro: Microbiology 07/10/23 21:15 Fluid - Paracentesis (Abd) Gram Stain - Final 07/10/23 21:15 Fluid - Paracentesis (Abd) Body Fluid Culture - Final Culture exhibits no growth. 07/10/23 21:15 Fluid - Paracentesis (Abd) Anaerobic Culture - Final No growth in 5 days. 07/11/23 05:30 Urine, Clean Catch Urine Culture - Final Staphylococcus epidermidis Assessment & Plan Assessment/Plan (1) Peritoneal carcinomatosis: PLAN: Patient is being transferred to hospice today. She is tolerating some diet and having gas and stool in her colostomy bag. (2) Severe protein-calorie malnutrition ([place]: less than 60% of standard weight): PLAN: severe malnutrition r/t inadequate energy intake as evidenced by severe muscle wasting/fat loss per physical assessment, estimated energy intake meeting < 75% of estimated energy needs > 1 month BMI 18.3.
--- NOTE | 2023-07-20 10:13 | PHA.DC.MR.R ---
Pharmacy [place] Med Reconciliation Pharmacy Service has performed discharge medication reconciliation for this patient. The patient's discharge medication list was reviewed for discrepancies and discrepancies were resolved. Medications at Discharge Home Medications bupropion HCl 150 mg 24 hr tablet, extended release 150 mg PO DAILY depression 09/24/15 calcium carbonate 600 mg-vitamin D3 20 mcg (800 unit) tablet 1 ea PO DAILY 09/24/15 clorazepate dipotassium 7.5 mg tablet (Tranxene T-Tab) 15 mg PO DAILY PRN anxiety 09/24/15 escitalopram oxalate 10 mg tablet 20 mg PO DAILY depression 09/24/15 imipramine HCl 50 mg tablet (Tofranil) 100 mg PO QHS see md 09/24/15 levothyroxine 50 mcg tablet 50 mcg PO DAILY thyroid 09/24/15 polyethylene glycol 3350 17 gram oral powder packet 17 g PO DAILY PRN PRN Constipation 09/24/15 pravastatin 20 mg tablet 20 mg PO QHS cholesterol 09/24/15 amlodipine 5 mg tablet 5 mg PO DAILY bp 07/10/23 aspirin 81 mg tablet,delayed release (Adult Low Dose Aspirin) 81 mg PO DAILY platlet 07/10/23 cinnamon bark 500 mg capsule (Cinnamon) 500 mg PO DAILY high sugar 07/10/23 cyanocobalamin (vitamin B-12) 5,000 mcg sublingual tablet (Vitamin B-12) 5,000 mcg sublingual .COMPLEX vitamin 07/10/23 losartan 25 mg tablet 12.5 mg PO DAILY bp 07/10/23
--- NOTE | 2023-07-20 14:50 | CASEMGMT ---
Hospice nurse called requesting dc orders and ostomy supply order for pt to be faxed. Verbally gave her ostomy supply numbers. Charge nurse obtained 2 appliances and stomahesive paste for family who will come to floor to citrus picker. Faxed information at this time.
== END 2023-07-20 10:54 | disposition hospice, home (50) | DRG 981 ==
LOC: ED 19:44 → MS3 21:54
PROVIDERS: Anesthesiology; Physician Assistant; Surgery; Admitting Provider Surgery; Emergency Provider Student in an Organized Health Care Education/Training Program; PCP Internal Medicine; Visit Provider Surgery
PROC: 0DJD8ZZ Inspection of Lower Intestinal Tract, Via Natural or Artificial Opening Endoscopic (ICD-10-PCS; CPT 45330; principal; 2023-07-11 13:00)
PROC: 0D1E4Z4 Bypass Large Intestine to Cutaneous, Percutaneous Endoscopic Approach (ICD-10-PCS; CPT 44188; principal; 2023-07-11 14:10)
PROC: 0D1E0Z4 Bypass Large Intestine to Cutaneous, Open Approach (ICD-10-PCS; CPT 49000; principal; 2023-07-13 12:30)
DX: C56.9 Malignant neoplasm of unspecified ovary (principal); E43 Unspecified severe protein-calorie malnutrition; R18.0 Malignant ascites; K55.9 Vascular disorder of intestine, unspecified; K56.609 Unspecified intestinal obstruction, unspecified as to partial versus complete obstruction; C78.6 Secondary malignant neoplasm of retroperitoneum and peritoneum; K94.09 Other complications of colostomy; E87.1 Hypo-osmolality and hyponatremia; N39.0 Urinary tract infection, site not specified; Z68.1 Body mass index [BMI] 19.9 or less, adult; I10 Essential (primary) hypertension; E83.39 Other disorders of phosphorus metabolism; E87.6 Hypokalemia; M79.89 Other specified soft tissue disorders; Z53.09 Procedure and treatment not carried out because of other contraindication; Z79.82 Long term (current) use of aspirin; Z79.890 Hormone replacement therapy; Z79.899 Other long term (current) drug therapy
CPT/HCPCS: 36415; 49082; 74177; 80048; 80053; 81001; 81002; 82607; 82746; 83735; 84100; 84132; 84443; 85025; 85652; 86140; 86301; 86304; 87070; 87075; 87077; 87086; 87088; 87186; 87205; 88108; 88305; 88307; 88309; 88313; 88341; 88342; 89050; 93005; 93970; 99283; J7030; J7050; Q9967; A4216; C1729; C1760; J2405

== ENCOUNTER → 2023-07-10 | Outpatient (CLI) | payer MEDICARE, OTHER, SELFPAY ==
[2023-07-10 16:00] LABS: Absolute Lymphocyte Count 1.01 X10^3/uL (0.83-4.51); Absolute Neutrophil Count 3.5 X10^3/uL (2.0-7.7); Basophil# 0.02 X10^3/uL; Basophil% 0.4 % (0-1); Eosinophil# 0.02 X10^3/uL; Eosinophils% 0.4 % (0-5); Hematocrit 32.5 % (37-47); Hemoglobin 10.8 g/dL (12.0-15.0); Lymphocyte # 1.01 X10^3/ul (0.83-4.51); Lymphocyte % 19.7 % (19-41); Mean Corp Hgb Conc 33.2 g/dL (32-36); Mean Corpuscular Hgb 30.7 pg (27.0-32.0); Mean Corpuscular Volume 92.3 fL (81-99); Mean Platelet Vol. 10.1 fl (6.2-12.0); Monocyte# 0.53 X10^3/uL; Monocyte% 10.4 % (0-10); NRBC Flagged by Analyzer 0 % (0-5); Neutrophil # 3.52 X10^3/uL (2.7-7.7); Neutrophil % 68.7 % (47-70); Platelet Count 293 K/mm3 (150-450); RBC Distribution Width SD 40.5 fl (35.1-43.9); Red Blood Count 3.52 M/mm3 (4.2-5.4); White Blood Count 5.1 K/mm3 (4.4-11.0)
[2023-07-10 16:14] LABS: Erythrocyte Sedimentation Rate 63 mm/hr (0-30)
[2023-07-10 16:35] LABS: Vitamin B12 1812 pg/mL (211-911)
[2023-07-10 16:37] LABS: ALB/GLOB Ratio 0.6 RATIO (0.9-2.4); AST(SGOT) 28 U/L (15-37); Alanine Aminotransfer ALT/SGPT 25 U/L (13-56); Albumin, Serum 2.9 g/dL (3.2-5.0); Alkaline Phosphatase 88 U/L (45-117); Anion Gap 8 (5-15); BUN 13 mg/dL (7-18); BUN/Creat Ratio 10.4 RATIO (10-20); Calcium,Total 9.2 mg/dL (8.5-10.1); Chloride 93 mmol/L (98-107); Creatinine, Serum 1.25 mg/dL (0.55-1.02); EST Glomerular Filtration Rate 44 mL/min (>60); Est Glom Filt Rate - Afr Amer 53 mL/min (>60); Globulin 4.5 g/dL (2.2-4.2); Glucose 106 mg/dL (74-106); Potassium 4.1 mmol/L (3.5-5.1); Protein, Total 7.4 g/dL (6.4-8.2); Sodium Level 125 mmol/L (136-145)
--- NOTE | 2023-07-11 05:32 | EKG12_ITS ---
Test Reason : Pre-Op Blood Pressure : / mmHG Vent. Rate : 085 BPM Atrial Rate : 085 BPM P-R Int : 144 ms QRS Dur : 116 ms QT Int : 402 ms P-R-T Axes : 035 012 059 degrees QTc Int : 478 ms Normal sinus rhythm Incomplete right bundle branch block Inferior infarct , age undetermined Abnormal ECG When compared with ECG of 25-JUN-2021 06:46, QRS voltage has decreased Confirmed by NITIN GUILLEN, JEREMIAS ([id number]), associate editor AYANNA SALGADO ([id number]) on 08/04/2023 11:51:32 AM Referred By: Melissa Yeung Confirmed By:JEREMIAS TAVERAS MD
== END | disposition home or self-care (01) ==
PROVIDERS: PCP Internal Medicine; Referring Provider Internal Medicine; Visit Provider Internal Medicine
DX: R14.0 Abdominal distension (gaseous) (principal); E53.8 Deficiency of other specified B group vitamins
CPT/HCPCS: 36415; 80053; 82607; 82746; 85025; 85652; 86140

== ENCOUNTER 2023-09-02 10:47 | Outpatient (CLI) | payer MEDICARE, OTHER, SELFPAY | END 2023-09-02 23:59 | disposition home or self-care (01) | PROVIDERS: PCP Internal Medicine; Referring Provider Internal Medicine; Visit Provider Internal Medicine | DX: Z00.00 Encounter for general adult medical examination without abnormal findings (principal) ==